=== PATIENT | male | born 1970 | race Caucasian/White ===

== ENCOUNTER 2020-10-19 14:21 | Outpatient (REF) | payer OTHER, SELFPAY ==
[2020-10-19 16:09] LABS: Anion Gap 14 (12-20); Blood Urea Nitrogen 29 mg/dL (9-16); Calcium 8.9 mg/dL (8.4-10.2); Carbon Dioxide 31 mmol/L (22-29); Chloride 99 mmol/L (96-108); Estimated Glomerular Filt Rate 38; Phosphorus 4.5 mg/dL (2.7-4.5); Potassium 3.8 mmol/L (3.3-5.1); Sodium 140 mmol/L (135-145)
== END 2020-10-19 14:22 | disposition home or self-care (01) ==
LOC: HO.LAB 14:21
PROVIDERS: Visit Provider Internal Medicine Hypertension Specialist
DX: I12.9 Hypertensive chronic kidney disease with stage 1 through stage 4 chronic kidney disease, or unspecified chronic kidney disease (principal); N18.9 Chronic kidney disease, unspecified
CPT/HCPCS: 36415; 80051; 82310; 82565; 84100; 84520

== ENCOUNTER 2021-02-23 14:15 | Outpatient (REF) | payer OTHER, SELFPAY ==
[2021-02-23 15:41] LABS: Anion Gap 12 (12-20); Blood Urea Nitrogen 20 mg/dL (9-16); Calcium 8.9 mg/dL (8.4-10.2); Carbon Dioxide 32 mmol/L (22-29); Chloride 100 mmol/L (96-108); Estimated Glomerular Filt Rate 36; Potassium 3.5 mmol/L (3.3-5.1); Sodium 140 mmol/L (135-145)
== END 2021-02-23 14:16 | disposition home or self-care (01) ==
LOC: HO.LAB 14:15
PROVIDERS: Absent Provider Internal Medicine; PCP Internal Medicine; Visit Provider Internal Medicine Hypertension Specialist
DX: N18.32 Chronic kidney disease, stage 3b (principal)
CPT/HCPCS: 36415; 80051; 82310; 82565; 84520

== ENCOUNTER 2021-04-13 11:25 | Outpatient (REF) | payer OTHER, SELFPAY ==
[2021-04-13 11:38] LABS: MANUAL DIFF FLAG NO
[2021-04-13 11:59] LABS: Basophils Percent Auto 0.5 % (0-2); Eosinophils Absolute Auto 0.5 X10*3/uL (0.0-0.4); Eosinophils Percent Auto 6.6 % (0-4); Hematocrit 46.6 % (42-52); Hemoglobin 16.3 g/dl (14.0-18.0); Imm Gran Abs Auto 0.02 X10*3/uL (0.00-0.03); Imm Gran Pct Auto 0.3 % (0.0-0.4); Lymphocytes Absolute Auto 1.2 X10*3/uL (1.2-4.9); Lymphocytes Percent Auto 15.9 % (20-40); Mean Corpuscular Hemoglobin 30.6 pg (27.0-33.0); Mean Corpuscular Volume 87.6 fL (80-98); Mean Platelet Volume 10.1 fL (9.4-12.4); Monocytes Absolute Auto 0.6 X10*3/uL (0.1-1.2); Monocytes Percent Auto 7.9 % (2-11); Neutrophils Absolute Auto 5.1 X10*3/uL (2.0-8.3); Neutrophils Percent Auto 68.8 % (45-73); Platelet Count 208 X10*3/uL (160-400); Red Blood Count 5.32 X10*6/uL (4.60-5.80); Red Cell Distribution Width 12.6 % (11.0-16.0); White Blood Count 7.4 X10*3/uL (4.8-10.8)
[2021-04-13 12:14] LABS: Estimated Average Glucose 105 mg/dL; Hemoglobin A1c % 5.3 %
[2021-04-13 12:29] LABS: B Type Natriuretic Peptide < 10 pg/mL (<100)
[2021-04-13 12:30] LABS: Alanine Aminotransferase 19 U/L (0-40); Albumin Level 4.7 g/dL (3.5-5.0); Alkaline Phosphatase 127 U/L (39-117); Anion Gap 13 (12-20); Aspartate Amino Transferase 20 U/L (5-37); Bilirubin Total 0.9 mg/dL (0.0-1.0); Blood Urea Nitrogen 21 mg/dL (9-16); Calcium 8.9 mg/dL (8.4-10.2); Carbon Dioxide 33 mmol/L (22-29); Chloride 97 mmol/L (96-108); Cholesterol 144 mg/dL; Estimated Glomerular Filt Rate 34; Glucose Random 122 mg/dL (60-115); HDL Cholesterol 25 mg/dL; LDL Cholesterol Calculated 80 mg/dl; Potassium 3.9 mmol/L (3.3-5.1); Sodium 139 mmol/L (135-145); Total Protein 7.2 g/dL (6.5-8.0); Triglycerides 199 mg/dL
[2021-04-13 12:53] LABS: Free T4 (Free Thyroxine) 1.34 ng/dL (0.71-1.85); Prostate Specific Antigen Scr 2.65 ng/mL (<0.05-4.0); Thyroid Stimulating Hormone 1.06 uIU/mL (0.32-4.0)
[2021-04-13 13:07] LABS: Folate 14.6 ng/mL (> or = 4.0); Vitamin B12 181 pg/mL (200-900)
== END 2021-04-13 11:26 | disposition home or self-care (01) ==
LOC: HO.LAB 11:25
PROVIDERS: PCP Internal Medicine; Visit Provider Internal Medicine
DX: Z12.5 Encounter for screening for malignant neoplasm of prostate (principal); E78.00 Pure hypercholesterolemia, unspecified; I50.9 Heart failure, unspecified; N18.30 Chronic kidney disease, stage 3 unspecified
CPT/HCPCS: 36415; 80053; 80061; 82607; 82746; 83036; 83880; 84153; 84439; 84443; 85025

== ENCOUNTER → 2021-05-03 13:52 | Outpatient (REF) | payer OTHER, SELFPAY | LOC: HO.SL 13:52 | PROVIDERS: PCP Internal Medicine; Visit Provider Internal Medicine | DX: G47.10 Hypersomnia, unspecified (principal); I10 Essential (primary) hypertension; I42.8 Other cardiomyopathies; I50.9 Heart failure, unspecified; E66.9 Obesity, unspecified | CPT/HCPCS: 95806 ==

== ENCOUNTER → 2021-06-19 14:41 | Outpatient (BNVA) | payer OTHER, SELFPAY | PROVIDERS: PCP Internal Medicine; Visit Provider Internal Medicine ==

== ENCOUNTER 2021-08-13 15:33 | Outpatient (REF) | payer OTHER, SELFPAY ==
[2021-08-13 15:46] LABS: MANUAL DIFF FLAG NO
[2021-08-13 16:00] LABS: Basophils Percent Auto 0.5 % (0-2); Eosinophils Absolute Auto 0.4 X10*3/uL (0.0-0.4); Eosinophils Percent Auto 4.7 % (0-4); Hemoglobin 15.7 g/dl (14.0-18.0); Imm Gran Abs Auto 0.02 X10*3/uL (0.00-0.03); Imm Gran Pct Auto 0.3 % (0.0-0.4); Lymphocytes Absolute Auto 1.2 X10*3/uL (1.2-4.9); Lymphocytes Percent Auto 15.8 % (20-40); Mean Corpuscular HGB Conc 35.7 g/dl (31.0-36.0); Mean Corpuscular Volume 86.8 fL (80.0-98.0); Monocytes Absolute Auto 0.6 X10*3/uL (0.1-1.2); Monocytes Percent Auto 7.7 % (2-11); Neutrophils Absolute Auto 5.4 x10*3/uL (2.0-8.3); Platelet Count 178 X10*3/uL (160-400); Red Blood Count 5.07 X10*6/uL (4.60-5.80); Red Cell Distribution Width 12.7 % (11.0-16.0); White Blood Count 7.7 X10*3/uL (4.8-10.8)
[2021-08-13 16:16] LABS: Anion Gap 12 (12-20); Blood Urea Nitrogen 18 mg/dL (9-16); Calcium 8.8 mg/dL (8.4-10.2); Carbon Dioxide 30 mmol/L (22-29); Chloride 99 mmol/L (96-108); Estimated Glomerular Filt Rate 47; Potassium 3.3 mmol/L (3.3-5.1); Sodium 138 mmol/L (135-145)
[2021-08-13 17:27] LABS: Creatinine Urine 45.34 mg/dL; Total Protein Urine Random < 7 mg/dL (<12)
== END 2021-08-13 15:34 | disposition home or self-care (01) ==
LOC: HO.LAB 15:33
PROVIDERS: PCP Internal Medicine; Visit Provider Internal Medicine Hypertension Specialist
DX: I12.9 Hypertensive chronic kidney disease with stage 1 through stage 4 chronic kidney disease, or unspecified chronic kidney disease (principal); N18.9 Chronic kidney disease, unspecified
CPT/HCPCS: 36415; 80051; 82310; 82565; 84156; 84520; 85025

== ENCOUNTER → 2021-09-19 15:20 | Outpatient (BNVA) | payer OTHER, SELFPAY | PROVIDERS: PCP Internal Medicine; Visit Provider Internal Medicine | DX: Z13.89 Encounter for screening for other disorder (principal) ==

== ENCOUNTER 2021-09-21 10:59 | Day surgery (SDC) | payer OTHER, SELFPAY ==
[2021-09-17 15:58] VITALS: BMI 36.8
--- NOTE | 2021-09-20 10:35 | HO.ANESPROP2 ---
Documented by User: Rosa Purdy NP 09/20/21 10:45 HPI - Anesthesia Eval Consult details Narrative: 51yo M for Colonoscopy T/C with patient 09/20/21: No SOB/CP, no peripheral edema, sleeping flat without issue. States has not seen commercial subcontractor in a while . Only follows with PCP (Dr Kebede) Per PCP visit 09/18/21, normal exam and cardiac function improved. [facility] Active Problems Active Problems: All Active Problems (Updated 09/19/21 @ 15:58 by Arnold Sanchez MD) Vitamin B12 deficiency (Acute) JOYCELYN (obstructive sleep apnea) (Acute) Impaired fasting blood sugar (Acute) Colon cancer screening (Acute) Chronic kidney disease, stage 3 (Acute) Annual physical exam (Acute) Nonischemic cardiomyopathy (Acute) Hypersomnia (Acute) Obesity (Acute) Hypertension (Acute) Congestive heart failure (Acute) Past Medical History Medical History (Updated 09/19/21 @ 15:58 by Arnold Sanchez MD) Congestive heart failure Hypertension Obesity JOYCELYN (obstructive sleep apnea) Family History Family History Other Drug overdose Surgical History Surgical History History of tonsillectomy Social History Social History Housing: Apartment Alcohol intake: current Patient Tobacco Use Status: Former Tobacco user Tobacco use type: Cigarette Years Smoked: quit 19 years old e-Cigarette/Vaping Use: Never Used Second Hand Smoke Exposure: No Use of substances other than those prescribed or required for medical reasons: No Are you DNR?: No Advance Directives: No Advance Directives Information Provided: Yes Recently lost weight without trying: No Nutrition Risks: No Nutritional Risk service: No Current occupational status: employed Current occupational exposures/hazards: No Cognitive needs: No Hearing needs: No Vision needs: Yes Meds Allergies Allergy/AdvReac Type Severity Reaction Status Date / Time seafood Allergy Angioedema Verified 09/21/21 12:11 Exam Exam Date and Time: September 20, 2021 1035 Height,Weight and Vital Signs: Height 5 ft 3 in Weight 94.347 kg Pertinent Lab Results Pertinent Lab Results: Laboratory Tests 08/13/21 08/13/21 15:40 15:40 WBC 7.7 Hgb 15.7 Hct 44.0 Plt Count 178 Sodium 138 Potassium 3.3 Chloride 99 Carbon Dioxide 30 H BUN 18 H Creatinine 1.57 H Narrative Narrative: ECHO 01/2021 LV size is normal. LV wall thickness is mildly increased. The LV systolic function is normal. LVEF is 60-65%. No definite RWMA LA is mildly dilated. RV size and function appears grossly normal RA size is at upper limit of normal Compared with 09/2020, LV systolic function has improved. Assessment and Plan Assessment Anesthesia Assessment: Chart Reviewed Documented by User: James Avendano MD 09/21/21 12:44 HPI - Anesthesia Eval Consult details Narrative: 51yo M for Colonoscopy T/C with patient 09/20/21: No SOB/CP, no peripheral edema, sleeping flat without issue. States has not seen commercial subcontractor in a while . Only follows with PCP (Dr Kebede) Per PCP visit 09/18/21, normal exam and cardiac function improved. Cardiac cath at [facility] did not show any coronary disease . Improved EF in January 2021 ECHO [facility] Past Medical History Medical History (Updated 09/19/21 @ 15:58 by Arnold Sanchez MD) Congestive heart failure Hypertension Obesity JOYCELYN (obstructive sleep apnea) Functional capacity: independent ambulation Family History Family History Other Drug overdose Family history of problems with anesthesia: No Surgical History Surgical History History of tonsillectomy History of Problems with Anesthesia: No Social History Social History Housing: Apartment Alcohol intake: current Patient Tobacco Use Status: Former Tobacco user Tobacco use type: Cigarette Years Smoked: quit 19 years old e-Cigarette/Vaping Use: Never Used Second Hand Smoke Exposure: No Use of substances other than those prescribed or required for medical reasons: No Are you DNR?: No Advance Directives: No Advance Directives Information Provided: Yes Recently lost weight without trying: No Nutrition Risks: No Nutritional Risk service: No Current occupational status: employed Current occupational exposures/hazards: No Cognitive needs: No Hearing needs: No Vision needs: Yes Meds Allergies Allergy/AdvReac Type Severity Reaction Status Date / Time seafood Allergy Angioedema Verified 09/21/21 12:11 Exam Airway Mallampati Class: IV TM Dist: >3cm Neck ROM: Full Loose/Missing/Broken Teeth: Yes Heart: RRR Lungs: b/l distant breath sounds Assessment and Plan Assessment Anesthesia Assessment: Anesthesia Plan Discussed Final Anesthetic Review Family History of Problems with Anesthesia: No History of Problems with Anesthesia: No NPO: Yes ASA Class: III Final Preanesthetic Review: Meds/Allgs Chart Reviewed, Consent Obtained/Reviewed and Anes Risks/Benef Reviewed Patient Risk: High Procedure Risk: Intermediate Anesthetic Plan Anesthetic Plan: MAC: Disposition: Standard PACU
[2021-09-21 12:01] VITALS: BMI 37.0
[2021-09-21 12:37] VITALS: BP 146/80; PULSE 88; RESP 16; TEMP 37.6; O2SAT 96
[2021-09-21] MEDS: Lactated Ringers 1,000 ML 50 ML IVCONT (12:38)
--- NOTE | 2021-09-21 12:50 | MHC.SHP ---
Pre-Procedural Eval Section A Date of Service: 09/21/21 The patient is an INPATIENT: No Changes since office visit: No Cold of Flu in the past 2 weeks, No New Medical Problems, No Changes in Medication and No Patient answered all questions The History & Physical has been completed within 30 days and I have reviewed it.: Yes Section B Chief Complaint: screening Allergies: Allergies Allergy/AdvReac Type Severity Reaction Status Date / Time seafood Allergy Angioedema Verified 09/21/21 12:11 Plan I have reviewed the history and physical and performed a pertinent physical examination on my patient. No changes have occurred unless specified.
[2021-09-21 13:42] VITALS: BP 113/67; PULSE 84; RESP 16; TEMP 36.1; O2SAT 94
--- NOTE | 2021-09-21 13:44 | PM.OP ---
Brief Operative Note Date of Service: 09/21/21 Pre-op diagnosis: screening Post-op diagnosis: other (colon polyps) Procedure: colonoscopy Surgeon: Yonny Gregorio Anesthesia: MAC Was an Foundation Relations Manager used for this Procedure?: No Estimated blood loss (mL): 2 Pathology: other (polyps x3) Condition: stable Disposition: PACU
[2021-09-21 13:57] VITALS: BP 132/81; PULSE 84; RESP 18; TEMP 36.1; O2SAT 97
--- NOTE | 2021-09-21 14:33 | OP_ITS ---
SURGEON: Yonny Gregorio MD INDICATIONS: Colon cancer screening. PREOPERATIVE DIAGNOSIS: POSTOPERATIVE DIAGNOSIS: PROCEDURE PERFORMED: Colonoscopy to the terminal ileum with biopsy and snare polypectomy. ESTIMATED BLOOD LOSS: COMPLICATIONS: ANESTHESIA: ASSISTANTS: SPECIMENS: MEDICATIONS: Monitored anesthesia care. DESCRIPTION OF PROCEDURE: History and physical were performed. The risks and benefits of the procedure were explained to the patient. Informed consent was obtained. The patient was placed in left lateral decubitus position. A digital rectal exam was performed and was found to be normal. The Olympus pediatric video colonoscope was introduced into the rectum and advanced to the cecum without difficulty. The cecum was identified by transillumination, palpation, and identification of ileocecal valve. Examination was performed. The scope was removed. He tolerated the procedure well and was taken to recovery area in stable condition. FINDINGS: The terminal ileum was examined and appeared normal. There was a large amount of liquid stool coating the mucosa, which limited the sensitivity of examination for detection of small polyps. This was washed and suctioned as best possible. A total of 3 polyps were identified and removed. All were less than 10 mm. Two were removed with a cold snare, at 50 cm and in the rectum and a polyp at 80 cm was removed with biopsy forceps. Retroflexed examination showed internal hemorrhoids. IMPRESSION: Colon polyps. RECOMMENDATION: Follow up the biopsy results. MD CRISTINA Lang/WENDY / [id number] MTDD
== END 2021-09-21 14:19 | disposition home or self-care (01) ==
PROVIDERS: PCP Internal Medicine; Visit Provider Internal Medicine Gastroenterology
PROC: 0DJD8ZZ Inspection of Lower Intestinal Tract, Via Natural or Artificial Opening Endoscopic (ICD-10-PCS; CPT 45378; principal; 2021-09-21 12:50)
DX: Z12.11 Encounter for screening for malignant neoplasm of colon (principal); D12.4 Benign neoplasm of descending colon; D12.5 Benign neoplasm of sigmoid colon; D12.8 Benign neoplasm of rectum; K64.8 Other hemorrhoids; I13.0 Hypertensive heart and chronic kidney disease with heart failure and stage 1 through stage 4 chronic kidney disease, or unspecified chronic kidney disease; N18.30 Chronic kidney disease, stage 3 unspecified; I50.82 Biventricular heart failure; I42.8 Other cardiomyopathies; E66.9 Obesity, unspecified; G47.33 Obstructive sleep apnea (adult) (pediatric); Z79.899 Other long term (current) drug therapy; Z87.891 Personal history of nicotine dependence
CPT/HCPCS: 45385; 45380; 88305; J2370

== ENCOUNTER 2021-12-13 13:18 | Outpatient (REF) | payer OTHER, SELFPAY ==
[2021-12-13 13:33] LABS: MANUAL DIFF FLAG NO
[2021-12-13 13:54] LABS: Basophils Percent Auto 0.5 % (0-2); Eosinophils Absolute Auto 0.3 X10*3/uL (0.0-0.4); Eosinophils Percent Auto 4.6 % (0-4); Hematocrit 44.8 % (42.0-52.0); Hemoglobin 16.2 g/dl (14.0-18.0); Imm Gran Abs Auto 0.02 X10*3/uL (0.00-0.03); Imm Gran Pct Auto 0.3 % (0.0-0.4); Lymphocytes Percent Auto 15.7 % (20-40); Mean Corpuscular HGB Conc 36.2 g/dl (31.0-36.0); Mean Corpuscular Volume 85.8 fL (80.0-98.0); Mean Platelet Volume 10.2 fL (9.4-12.4); Monocytes Absolute Auto 0.5 X10*3/uL (0.1-1.2); Monocytes Percent Auto 8.4 % (2-11); Neutrophils Absolute Auto 4.3 x10*3/uL (2.0-8.3); Neutrophils Percent Auto 70.5 % (45-73); Platelet Count 180 X10*3/uL (160-400); Red Blood Count 5.22 X10*6/uL (4.60-5.80)
[2021-12-13 14:48] LABS: Anion Gap 12 (12-20); Blood Urea Nitrogen 15 mg/dL (9-16); Calcium 8.5 mg/dL (8.4-10.2); Carbon Dioxide 30 mmol/L (22-29); Chloride 99 mmol/L (96-108); Estimated Glomerular Filt Rate 47; Potassium 3.4 mmol/L (3.3-5.1); Sodium 138 mmol/L (135-145)
== END 2021-12-13 13:19 | disposition home or self-care (01) ==
LOC: HO.LAB 13:18
PROVIDERS: PCP Internal Medicine; Visit Provider Internal Medicine Hypertension Specialist
DX: N18.31 Chronic kidney disease, stage 3a (principal)
CPT/HCPCS: 36415; 80051; 82310; 82565; 84520; 85025

== ENCOUNTER 2022-02-25 12:44 | Outpatient (REF) | payer OTHER, SELFPAY ==
[2022-02-25 13:38] LABS: MANUAL DIFF FLAG NO
[2022-02-25 13:46] LABS: Basophils Percent Auto 0.6 % (0-2); Eosinophils Absolute Auto 0.4 X10*3/uL (0.0-0.4); Eosinophils Percent Auto 6.1 % (0-4); Hematocrit 43.9 % (42.0-52.0); Hemoglobin 15.7 g/dl (14.0-18.0); Imm Gran Abs Auto 0.02 X10*3/uL (0.00-0.03); Imm Gran Pct Auto 0.3 % (0.0-0.4); Lymphocytes Absolute Auto 1.1 X10*3/uL (1.2-4.9); Lymphocytes Percent Auto 15.5 % (20-40); Mean Corpuscular HGB Conc 35.8 g/dl (31.0-36.0); Mean Corpuscular Hemoglobin 30.7 pg (27.0-33.0); Mean Corpuscular Volume 85.9 fL (80.0-98.0); Monocytes Absolute Auto 0.6 X10*3/uL (0.1-1.2); Monocytes Percent Auto 8.9 % (2-11); Neutrophils Absolute Auto 4.9 x10*3/uL (2.0-8.3); Neutrophils Percent Auto 68.6 % (45-73); Platelet Count 160 X10*3/uL (160-400); Red Blood Count 5.11 X10*6/uL (4.60-5.80); Red Cell Distribution Width 12.9 % (11.0-16.0); White Blood Count 7.1 X10*3/uL (4.8-10.8)
[2022-02-25 13:58] LABS: Estimated Average Glucose 103 mg/dL; Hemoglobin A1c % 5.2 %
[2022-02-25 14:25] LABS: B Type Natriuretic Peptide < 10 pg/mL (<100)
[2022-02-25 14:27] LABS: Alanine Aminotransferase 17 U/L (0-40); Albumin Level 4.4 g/dL (3.5-5.0); Alkaline Phosphatase 109 U/L (39-117); Anion Gap 13 (12-20); Aspartate Amino Transferase 16 U/L (5-37); Bilirubin Total 0.9 mg/dL (0.0-1.0); Blood Urea Nitrogen 17 mg/dL (9-16); Calcium 8.3 mg/dL (8.4-10.2); Carbon Dioxide 29 mmol/L (22-29); Chloride 101 mmol/L (96-108); Cholesterol 122 mg/dL; Estimated Glomerular Filt Rate 45; Glucose Random 114 mg/dL (60-115); HDL Cholesterol 25 mg/dL; LDL Cholesterol Calculated 58 mg/dl; Potassium 3.7 mmol/L (3.3-5.1); Sodium 139 mmol/L (135-145); Triglycerides 198 mg/dL
[2022-02-25 14:40] LABS: Free T4 (Free Thyroxine) 1.23 ng/dL (0.71-1.85); Prostate Specific Antigen Scr 2.49 ng/mL (<0.05-4.0); Thyroid Stimulating Hormone 1.33 uIU/mL (0.32-4.0)
[2022-02-25 15:12] LABS: Folate 13.3 ng/mL (> or = 4.0); Vitamin B12 311 pg/mL (200-900)
== END 2022-02-25 12:45 | disposition home or self-care (01) ==
LOC: HO.LAB 12:44
PROVIDERS: PCP Internal Medicine; Visit Provider Internal Medicine
DX: Z12.5 Encounter for screening for malignant neoplasm of prostate (principal); E78.00 Pure hypercholesterolemia, unspecified; R73.01 Impaired fasting glucose; I13.0 Hypertensive heart and chronic kidney disease with heart failure and stage 1 through stage 4 chronic kidney disease, or unspecified chronic kidney disease; N18.30 Chronic kidney disease, stage 3 unspecified; I50.9 Heart failure, unspecified
CPT/HCPCS: 36415; 80053; 80061; 82607; 82746; 83036; 83880; 84153; 84439; 84443; 85025

== ENCOUNTER → 2022-04-03 13:21 | Outpatient (REF) | payer OTHER, SELFPAY ==
--- NOTE | 2022-04-03 13:24 | CA_ITS ---
Transthoracic Echocardiogram Patient (Last, First, Middle): Antoni Reina L Gender: Male Date of : 1970 Age: 52 Procedure Date: 04/03/2022 Procedure Type: Transthoracic Echocardiogram Location: OP Height: 160.02 cm Weight: 94.35 kg BSA: 1.97 m2 Heart Rate: bpm BP: 124 / 80 mmHg Welding Manager: Referring MD: Heather Kebede MD Symptoms: I42.8 - Other cardiomyopathies Study Quality: Good ECG Rhythm: Sinus Conclusions: - The left ventricular systolic function is normal. The visually estimated ejection fraction is between 65-70%. - No obvious valvular pathology seen on this study. Findings Left Ventricle Normal left ventricular cavity size. There is mildly increased left ventricular wall thickness. The left ventricular systolic function is normal. The visually estimated ejection fraction is between 65-70%. There is no evidence of regional wall motion abnormalities. Diastolic function is normal for age. LV peak GLS -18%. Right Ventricle Normal right ventricular cavity size and systolic function. Atria Both atria are normal in size. Aortic Valve There is a normal trileaflet aortic valve. There is no aortic valve stenosis. There is no aortic valve regurgitation. Mitral Valve The mitral valve appears normal. There is no mitral valve regurgitation. There is no mitral valve stenosis. Pulmonic Valve The pulmonic valve is likely normal. Tricuspid Valve Normal tricuspid valve structure. There is trace tricuspid valve regurgitation. There is no evidence of pulmonary hypertension. Great Vessels The aortic annulus, sinuses of valsalva, and asc aorta are normal in size. Venous The inferior vena cava is normal in size and collapses greater than 50% with inspiration. Pericardium/Pleural There is no evidence of pericardial effusion. Prior Study Comparison No prior study available for comparison. Recommendations, Care & Conclusions No obvious valvular pathology seen on this study. Measurements 2D Linear Measurements IVSd: 1.25 0.6-0.9/0.6-1.0 cm LVIDd: 4.63 3.9-5.3/4.2-5.9 cm LVIDd Index: 2.35 2.4-3.2/2.2-3.1 cm/m2 LVIDs: 2.72 2.0-3.6 cm LVPWd: 1.25 0.7-1.1 cm Ao Root: 3.00 2.1-3.5 cm LA Diam: 3.30 2.7-3.8/3.0-4.0 cm LAIDs Index: 1.68 1.5-2.3 cm/m2 LV Mass: 273.74 67-162/88-224 g LV Mass Index: 138.96 43-95/49-115 g/m2 LVOT Diam: 2.20 3.0+(-)1.3 cm 2D Systolic Function EF 4C: 60.20 >55% EF 2C: 59.60 >55% EF BiP: 59.50 >55% Mitral Valve MV Pk E: 0.95 MV PK A: 1.02 MV Decel Time: 206.00 E/A: 0.90 E'Lateral: 6.74 E'Medial: 6.20 E/E' Med: 15.30 E/E' Lat: 14.10 PHT: 60.00 MVA PHT: 3.67 Decel [place]: 4.62 Aortic Valve AoV Pk Reynaldo: 1.57 AoV Mn Reynaldo: 1.02 AoV VTI: 0.32 AoV Pk Grad: 10.00 Aov Mn Grad: 5.00 ADAMS Cont.VTI: 2.85 LVOT LVOT Pk Reynaldo: 1.01 LVOT Mn Reynaldo: 0.66 LVOT VTI: 0.24 LVOT Pk Grad: 4.00 LVOT Mn Grad: 2.00 LVOT Diam: 2.20 LVOT Area: 3.80 Diastolic Function MV Pk E: 0.95 MV Pk A: 1.02 E/A: 0.90 E'Medial: 6.20 E/E' Med: 15.30 E' Laterial: 6.74 E/E' Lat: 14.10 Right Ventricle TAPSE (mm): 35.00 TVS' Reynaldo: 15.00 Tricuspid Valve TR Pk Reynaldo: 2.18 TR Pk Grad: 19.00 RA Press: 3.00 RVSP: 22.00 Great Vessels Aorta Ao Root-2D: 3.00 2.0-3.7 cm Ao Asc: 3.40 2.1-3.4 cm Pulmonary Valve PV Pk Reynaldo: 1.08 Peak PV Grad: 5.00 Updated in Other Vendor System with Status of Final Hema Castillo MD electronically signed on 04/03/2022 4:10:48 PM with status of Final
== END ==
LOC: HO.CARD 13:21
PROVIDERS: PCP Internal Medicine; Visit Provider Internal Medicine
DX: I42.8 Other cardiomyopathies (principal)
CPT/HCPCS: 93306; 93356

== ENCOUNTER 2022-07-18 12:22 | Outpatient (REF) | payer OTHER, SELFPAY ==
[2022-07-18 13:55] LABS: Anion Gap 10 (12-20); Blood Urea Nitrogen 17 mg/dL (9-16); Calcium 8.6 mg/dL (8.4-10.2); Carbon Dioxide 29 mmol/L (22-29); Chloride 104 mmol/L (96-108); Estimated Glomerular Filt Rate 47; Glucose Random 137 mg/dL (60-115); Potassium 4.1 mmol/L (3.3-5.1); Sodium 139 mmol/L (135-145)
== END 2022-07-18 12:23 | disposition home or self-care (01) ==
LOC: HO.LAB 12:22
PROVIDERS: PCP Internal Medicine; Visit Provider Internal Medicine Hypertension Specialist
DX: N18.31 Chronic kidney disease, stage 3a (principal)
CPT/HCPCS: 36415; 80048

== ENCOUNTER 2022-12-03 13:28 | Outpatient (REF) | payer OTHER, SELFPAY ==
[2022-12-03 15:35] LABS: Anion Gap 14 (12-20); Blood Urea Nitrogen 21 mg/dL (9-16); Calcium 8.4 mg/dL (8.4-10.2); Carbon Dioxide 26 mmol/L (22-29); Chloride 104 mmol/L (96-108); Estimated Glomerular Filt Rate 56; Glucose Random 94 mg/dL (60-115); Potassium 3.5 mmol/L (3.3-5.1); Sodium 140 mmol/L (135-145)
[2022-12-03 16:04] LABS: Creatinine Urine 39.43 mg/dL; Total Protein Urine Random < 7 mg/dL (<12)
== END 2022-12-03 13:29 | disposition home or self-care (01) ==
LOC: HO.LAB 13:28
PROVIDERS: PCP Internal Medicine; Visit Provider Internal Medicine Hypertension Specialist
DX: N18.31 Chronic kidney disease, stage 3a (principal); R82.90 Unspecified abnormal findings in urine
CPT/HCPCS: 36415; 80048; 84156; 87086

== ENCOUNTER 2023-02-28 14:18 | Outpatient (REF) | payer OTHER, SELFPAY ==
[2023-02-28 14:39] LABS: MANUAL DIFF FLAG NO
[2023-02-28 15:31] LABS: Basophils Percent Auto 0.5 % (0-2); Eosinophils Absolute Auto 0.3 X10*3/uL (0.0-0.4); Eosinophils Percent Auto 5.3 % (0-4); Hematocrit 46.6 % (42.0-52.0); Hemoglobin 16.8 g/dl (14.0-18.0); Imm Gran Abs Auto 0.02 X10*3/uL (0.00-0.03); Imm Gran Pct Auto 0.3 % (0.0-0.4); Lymphocytes Percent Auto 15.1 % (20-40); Mean Corpuscular HGB Conc 36.1 g/dl (31.0-36.0); Mean Corpuscular Hemoglobin 31.5 pg (27.0-33.0); Mean Corpuscular Volume 87.4 fL (80.0-98.0); Monocytes Absolute Auto 0.5 X10*3/uL (0.1-1.2); Monocytes Percent Auto 8.3 % (2-11); Neutrophils Absolute Auto 4.5 x10*3/uL (2.0-8.3); Neutrophils Percent Auto 70.5 % (45-73); Platelet Count 179 X10*3/uL (160-400); Red Blood Count 5.33 X10*6/uL (4.60-5.80); Red Cell Distribution Width 12.9 % (11.0-16.0); White Blood Count 6.4 X10*3/uL (4.8-10.8)
[2023-02-28 15:52] LABS: B Type Natriuretic Peptide < 10 pg/mL (<100)
[2023-02-28 15:53] LABS: Estimated Average Glucose 108 mg/dL; Hemoglobin A1c % 5.4 % (<6.0)
[2023-02-28 16:45] LABS: Alanine Aminotransferase 16 U/L (0-40); Albumin Level 4.5 g/dL (3.5-5.0); Alkaline Phosphatase 127 U/L (39-117); Anion Gap 12 (12-20); Aspartate Amino Transferase 19 U/L (5-37); Bilirubin Total 0.8 mg/dL (0.0-1.0); Blood Urea Nitrogen 19 mg/dL (9-16); Calcium 8.9 mg/dL (8.4-10.2); Carbon Dioxide 32 mmol/L (22-29); Chloride 100 mmol/L (96-108); Cholesterol 135 mg/dL (<200); Estimated Glomerular Filt Rate 44; Glucose Random 138 mg/dL (60-115); HDL Cholesterol 30 mg/dL (>40); LDL Cholesterol Calculated 77 mg/dL (<100); Potassium 3.8 mmol/L (3.3-5.1); Sodium 140 mmol/L (135-145); Total Protein 7.2 g/dL (6.5-8.0); Triglycerides 144 mg/dL (<150)
[2023-02-28 16:47] LABS: Thyroid Stimulating Hormone 1.04 uIU/mL (0.32-4.0)
[2023-02-28 17:00] LABS: Folate 10.4 ng/mL (> or = 4.0); Prostate Specific Antigen Scr 4.41 ng/mL (<0.05-4.0); Vitamin B12 307 pg/mL (200-900)
== END 2023-02-28 14:19 | disposition home or self-care (01) ==
LOC: HO.LAB 14:18
PROVIDERS: PCP Internal Medicine; Visit Provider Internal Medicine
DX: Z12.5 Encounter for screening for malignant neoplasm of prostate (principal); I13.0 Hypertensive heart and chronic kidney disease with heart failure and stage 1 through stage 4 chronic kidney disease, or unspecified chronic kidney disease; N18.30 Chronic kidney disease, stage 3 unspecified; I50.9 Heart failure, unspecified; E78.00 Pure hypercholesterolemia, unspecified; R73.01 Impaired fasting glucose
CPT/HCPCS: 36415; 80053; 80061; 82607; 82746; 83036; 83880; 84153; 84439; 84443; 85025

== ENCOUNTER 2023-03-04 14:19 | Outpatient (REF) | payer OTHER, SELFPAY ==
[2023-03-06 10:22] LABS: Free Prostate Spec Ag 0.5 ng/mL; Percent Free Prostate Spec Ag 12 % (calc) (>25); Prostate Specific Ag Total 4.1 ng/mL (< OR = 4.0)
== END 2023-03-04 14:20 | disposition home or self-care (01) ==
LOC: HO.LAB 14:19
PROVIDERS: PCP Internal Medicine; Visit Provider Internal Medicine
DX: Z12.5 Encounter for screening for malignant neoplasm of prostate (principal); R97.20 Elevated prostate specific antigen [PSA]
CPT/HCPCS: 36415; 84153; 84154

== ENCOUNTER 2023-03-07 12:23 | Outpatient (AMB) | payer OTHER, SELFPAY ==
[2023-03-07 12:39] VITALS: BP 140/82; PULSE 84; O2SAT 98; BMI 39.5
--- NOTE | 2023-03-07 12:39 | A.OFFPC_ITS ---
Vital Signs 03/07/23 12:39 03/07/23 12:54 Height 5 ft 3 in Weight 223 lb BMI 39.5 BP 140/82 H 150/80 H Blood Pressure Location Lt brachial Lt brachial Position Sitting Sitting Pulse 84 Pulse Source Pulse Oximeter Pulse Oximetry (%) 98 Oxygen Delivery Method Room Air Intake Visit Reasons: PE Allergies seafood Allergy (Verified 03/07/23 12:39) Angioedema Medication List - Last Reconciled 03/07/23 by Heather Kebede MD amlodipine 10 mg PO DAILY 90 days carvedilol 25 mg PO BID 90 days cyanocobalamin (vitamin B-12) 1,000 mcg PO DAILY hydralazine 100 mg PO TID 90 days isosorbide mononitrate ER 90 mg (1.5 x 60 mg) PO DAILY 90 days torsemide 40 mg (2 x 20 mg) PO DAILY 90 days triamcinolone acetonide 0.5% 1 appl topical BID Tobacco use date assessed: 08/30/22 Dental Screening Dental Screen Date: 03/07/23 Did you have a dental visit in the last 12 months?: No Did you have a dental problem in the last 6 months where you did not have access to dental care?: No Was dental information given to patient?: No HPI PE HPI Details 52-year-old obese male with a history of congestive heart failure chronic kidney disease impaired glucose tolerance obstructive sleep apnea hypertension coming in for physical exam. Last seen in November 2022. Patient is up-to-date with colonoscopy September 2021. tired and working 2 jabs - tired [facility] Medical History (Updated 02/28/23 @ 17:26 by Heather Kebede MD) JOYCELYN (obstructive sleep apnea) Obesity Hypertension Congestive heart failure Surgical History History of tonsillectomy Family History (Updated 03/07/23 @ 12:56 by Heather Kebede MD) Maternal Grandfather Lung cancer Paternal Grandfather Lung cancer Paternal Uncle Lung cancer Other Drug overdose Social History (Updated 03/07/23 @ 12:57 by Heather Kebede MD) Housing: Apartment Alcohol intake: current Patient Tobacco Use Status: Former Tobacco user Tobacco use type: Cigarette Years Smoked: quit 19 years old cigar smoking 01/2023 e-Cigarette/Vaping Use: Never Used Second Hand Smoke Exposure: No service: No Current occupational status: employed Current occupational exposures/hazards: No Cognitive needs: No Hearing needs: No Vision needs: Yes Questionnaire PHQ-9 Over the last 2 weeks, how often have you been bothered by any of the following problems? 1. Little interest or pleasure in doing things: not at all 2. Feeling down, depressed, or hopeless: not at all 3. Trouble falling or staying asleep, or sleeping too much: not at all 4. Feeling tired or having little energy: not at all 5. Poor appetite or overeating: not at all 6. Feeling bad about yourself - or that you are a failure or have let yourself or your family down: not at all 7. Trouble concentrating on things, such as reading the newspaper or watching television: not at all 8. Moving or speaking so slowly that other people could have noticed. Or the opposite - being so fidgety or restless that you have been moving around a lot more than usual: not at all 9. Thoughts that you would be better off or of hurting yourself in some way: not at all Total score: 0 Depression Screening Interpretation: Negative Source: Developed by Drs. Marvin Zayas, Sophy Coats, Duane Cross and colleagues, with an educational christopher from [employer] Thrive Questionnaire Date Thrive assessed: 08/30/22 AUDIT C Alcohol Use Questionnaire (AUDIT-C) 1. How often do you have a drink containing alcohol?: Never 3. How often do you have six or more drinks on one occasion?: Never Total Score: 0 SHON-7 AMB Questionnaire SHON-7 Date SHON - 7 assessed: 08/30/22 Source: Developed by Drs. Marvin Zayas, Sophy Coats, Duane Cross and colleagues, with an educational christopher from [employer] Review of Systems Const Denies poor appetite and Denies weakness Eyes Denies no additional complaints ENT Reports Normal hearing present, Denies dizziness, Denies nasal congestion, Denies tinnitus and Denies sore throat Card Denies chest pain, Denies syncope, Denies rapid heart rate and Denies dyspnea Resp Denies cough and Denies dyspnea GI Denies change in stool character, Reports constipation, Denies diarrhea, Denies nausea and Denies vomiting Denies dysuria and Denies urinary frequency Neuro Reports Normal hearing present, Denies confusion, Denies dizziness, Denies syncope and Denies weakness Psych Denies confusion Physical exam (Primary Care) Vital Signs: Last Vital Signs Pulse 84 03/07/23 12:39 BP 140/82 H 03/07/23 12:39 Pulse Ox 98 03/07/23 12:39 Oxygen Delivery Method Room Air 03/07/23 12:39 BMI result Body Mass Index 39.5 Tobacco/Smoking Status: Tobacco use Status Tobacco use date assessed 08/30/22 03/07/23 12:40 Patient Tobacco Use Status Former Tobacco user 03/07/23 12:40 Tobacco use type Cigarette 03/07/23 12:40 e-Cigarette/Vaping Use Never Used 03/07/23 12:40 PHQ-9: PHQ-9 Score PHQ-9: Total score 0 03/07/23 12:40 Depression Screening Interpretation: Negative Thrive Assessment: Date of Thrive Assessment Date Thrive assessed 08/30/22 03/07/23 12:40 Const General: alert and awake; No confusion Orientation/consciousness: No confusion HENMT Head: Yes normocephalic Ears: external ears normal and TM's normal bilaterally Face and sinus: Yes normal facial exam Mouth: moist mucous membranes Throat: Yes tonsils normal Eyes Conjunctivae: conjunctivae normal Pupils: Equal, round and reactive pupils present and Pupil accommodation reflex normal Direct Ophthalmoscopy: normal light reflex Neck Neck: No lymphadenopathy Thyroid: Thyroid normal Chest Chest palpation & inspection: normal inspection of the chest Resp Effort & Inspection: normal respiratory effort and no audible wheezes Auscultation: clear to auscultation bilaterally, no crackles, no wheezes and lung sounds not diminished Cardio Rate: regular rate Rhythm: regular rhythm Peripheral pulses: radial pulses present and dorsalis pedis present GI Other: guaiac negative prostrate negative Palpation (GI): no masses Auscultation: normal bowel sounds and normoactive bowel sounds Male General Exam: Yes normal external exam Skin General skin exam: no rashes or lesions noted Rashes: no rashes Neuro General: deep tendon reflexes 2+ bilaterally and No confusion Cranial nerves: Yes Equal, round and reactive pupils present, Yes Midline tongue present, Yes Normal hearing present and Yes Ability to bilaterally elevate shoulders present Cognition (Neuro): normal cognition Gait exam (Neuro): Normal gait present Motor exam (neuro): 5/5 motor strength present throughout Deep tendon reflexes (DTR's): Right brachioradialis reflex intensity grade: 2+, Left brachioradialis reflex intensity grade: 2+, Right patellar reflex intensity grade: 2+ and Left patellar reflex intensity grade: 2+ Extrem General: No edema Assessment and Plan Assessment & Plan (1) Annual physical exam: Code(s): Z00.00 - Encounter for general adult medical examination without abnormal findings (2) Nonischemic cardiomyopathy: Code(s): I42.8 - Other cardiomyopathies Plan: Continue with medications carvedilol, amlodipine hydralazine isosorbide mononitrate, torsemide (3) Obesity: Comment: PATIENT IS GROSSLY OBESE. HE IS VERY MOTIVATED TO LOSE WEIGHT. Code(s): E66.9 - Obesity, unspecified Plan: Diet and exercise. discussed with the patient the concern on weight , the need to loose weight (4) Hypertension: Code(s): I10 - Essential (primary) hypertension Plan: Continue with blood pressure medication. Decrease salt intake and exercise continue with isosorbide mononitrate hydralazine carvedilol and amlodipine (5) Congestive heart failure: Comment: September 2020 biventricular Patient has diagnosis of nonischemic cardiomyopathy. He is being treated for congestive heart failure., Being followed by cardiology service. Code(s): I50.9 - Heart failure, unspecified Plan: Weigh daily and record avoid salt loading. (6) Chronic kidney disease, stage 3: Code(s): N18.30 - Chronic kidney disease, stage 3 unspecified Plan: Keep well hydrated avoid NSAIDs (7) PSA elevation: Code(s): R97.20 - Elevated prostate specific antigen [PSA] Plan: Will continue to follow-up Orders: Orders CA echo transthoracic complete Today I42.8 - Other cardiomyopathies Complete Blood Count Auto Diff 3 Months I50.9 - Heart failure, unspecified Comprehensive Met. Panel 3 Months I50.9 - Heart failure, unspecified PSA,Total (Free>4and<10) 3 Months R97.20 - Elevated prostate specific antigen [PSA] Medications: Refilled amlodipine 10 mg PO DAILY 90 tabs 2RF 90 days I10 - Essential (primary) hypertension carvedilol 25 mg PO BID 180 tabs 2RF 90 days I10 - Essential (primary) hype rtension hydralazine 100 mg PO TID 270 tabs 1RF 90 days I10 - Essential (primary) hypertension isosorbide mononitrate ER 90 mg (1.5 x 60 mg) PO DAILY 135 tabs 2RF 90 days I50.9 - Heart failure, unspecified torsemide 40 mg (2 x 20 mg) PO DAILY 180 tabs 2RF 90 days I50.9 - Heart failure, unspecified Coding Level of Care Code Est Pt Prev Care 40-64y(47013) Diagnoses Annual physical exam Z00.00 Nonischemic cardiomyopathy I42.8 Obesity E66.9 Hypertension I10 Congestive heart failure I50.9 Chronic kidney disease, stage 3 N18.30 PSA elevation R97.20
[2023-03-07 12:54] VITALS: BP 150/80
== END 2023-03-07 13:15 | disposition home or self-care (01) ==
PROVIDERS: Visit Provider Internal Medicine
DX: Z00.00 Encounter for general adult medical examination without abnormal findings (principal); I13.0 Hypertensive heart and chronic kidney disease with heart failure and stage 1 through stage 4 chronic kidney disease, or unspecified chronic kidney disease; N18.30 Chronic kidney disease, stage 3 unspecified; I50.9 Heart failure, unspecified; I42.8 Other cardiomyopathies; Z68.39 Body mass index [BMI] 39.0-39.9, adult; E66.9 Obesity, unspecified; R97.20 Elevated prostate specific antigen [PSA]
CPT/HCPCS: 99396

== ENCOUNTER → 2023-05-01 13:47 | Outpatient (REF) | payer OTHER, SELFPAY ==
--- NOTE | 2023-05-01 13:49 | CA_ITS ---
Transthoracic Echocardiogram Patient (Last, First, Middle): Antoni Reina L Gender: Male Date of : 1970 Age: 53 Procedure Date: 05/01/2023 Procedure Type: Transthoracic Echocardiogram Location: OP Height: 160. cm Weight: 99.79 kg BSA: 2.01 m2 Heart Rate: 75 bpm BP: 160 / 80 mmHg Logistics Assistant: CROW Referring MD: Heather Kebede MD Symptoms: I42.8 - Other cardiomyopathies Study Quality: Fair ECG Rhythm: Sinus Conclusions: - The left ventricular systolic function is normal. The visually estimated ejection fraction is between 65-70%. - No obvious valvular pathology seen on this study. Findings Left Ventricle Normal left ventricular cavity size. There is mildly increased left ventricular wall thickness. The left ventricular systolic function is normal. The visually estimated ejection fraction is between 65-70%. There is no evidence of regional wall motion abnormalities. Diastolic function is normal for age. LV peak GLS -19% (normal). Right Ventricle Normal right ventricular cavity size and systolic function. Atria Both atria are normal in size. Aortic Valve There is a normal trileaflet aortic valve. There is no aortic valve stenosis. There is no aortic valve regurgitation. Mitral Valve The mitral valve appears normal. There is no mitral valve regurgitation. There is no mitral valve stenosis. Pulmonic Valve The pulmonic valve is likely normal. Tricuspid Valve Normal tricuspid valve structure. There is trace tricuspid valve regurgitation. There is no evidence of pulmonary hypertension. Great Vessels The asc aorta is normal in size. Venous The inferior vena cava is normal in size and collapses less than 50% with inspiration. Pericardium/Pleural There is no evidence of pericardial effusion. Prior Study Comparison No significant change compared to prior study dated: 04/03/2022. Recommendations, Care & Conclusions No obvious valvular pathology seen on this study. Measurements 2D Linear Measurements IVSd: 1.21 0.6-0.9/0.6-1.0 cm LVIDd: 4.48 3.9-5.3/4.2-5.9 cm LVIDd Index: 2.23 2.4-3.2/2.2-3.1 cm/m2 LVIDs: 2.11 2.0-3.6 cm LVPWd: 1.33 0.7-1.1 cm LA Diam: 3.60 2.7-3.8/3.0-4.0 cm LAIDs Index: 1.79 1.5-2.3 cm/m2 LV Mass: 266.27 67-162/88-224 g LV Mass Index: 132.47 43-95/49-115 g/m2 LVOT Diam: 2.20 3.0+(-)1.3 cm 2D Systolic Function EF 4C: 66.60 >55% EF 2C: 74.30 >55% EF BiP: 71.60 >55% Mitral Valve MV Pk E: 1.18 MV PK A: 1.16 MV Decel Time: 252.00 E/A: 1.00 E'Lateral: 6.85 E'Medial: 6.85 E/E' Med: 17.20 E/E' Lat: 17.20 PHT: 74.00 MVA PHT: 2.97 Decel [place]: 4.68 Aortic Valve AoV Pk Reynaldo: 1.74 AoV Mn Reynaldo: 1.27 AoV VTI: 0.35 AoV Pk Grad: 12.00 Aov Mn Grad: 7.00 ADAMS Cont.VTI: 2.62 LVOT LVOT Pk Reynaldo: 1.24 LVOT Mn Reynaldo: 0.84 LVOT VTI: 0.24 LVOT Pk Grad: 6.00 LVOT Mn Grad: 3.00 LVOT Diam: 2.20 LVOT Area: 3.80 Diastolic Function MV Pk E: 1.18 MV Pk A: 1.16 E/A: 1.00 E'Medial: 6.85 E/E' Med: 17.20 E' Laterial: 6.85 E/E' Lat: 17.20 Right Ventricle TAPSE (mm): 32.50 TVS' Reynaldo: 16.80 Tricuspid Valve TR Pk Reynaldo: 1.70 TR Pk Grad: 12.00 RA Press: 8.00 RVSP: 20.00 Great Vessels Aorta Sinus of Valsalva: 3.90 2.0-3.5 cm Ao Asc: 3.70 2.1-3.4 cm Pulmonary Valve PV Pk Reynaldo: 1.13 Peak PV Grad: 5.00 Updated in Other Vendor System with Status of Final Hema Castillo MD electronically signed on 05/03/2023 11:03:46 AM with status of Final
== END ==
LOC: HO.CARD 13:47
PROVIDERS: PCP Internal Medicine; Visit Provider Internal Medicine
DX: I42.8 Other cardiomyopathies (principal)
CPT/HCPCS: 93306; 93356

== ENCOUNTER → 2023-05-01 13:49 | Outpatient (BNV) | payer OTHER, SELFPAY | PROVIDERS: PCP Internal Medicine; Visit Provider Internal Medicine | DX: I42.8 Other cardiomyopathies (principal) | CPT/HCPCS: 93306 ==

== ENCOUNTER 2023-06-12 13:19 | Outpatient (REF) | payer OTHER, SELFPAY ==
[2023-06-12 13:30] LABS: MANUAL DIFF FLAG NO
[2023-06-12 14:02] LABS: Basophils Percent Auto 0.6 % (0-2); Eosinophils Absolute Auto 0.5 X10*3/uL (0.0-0.4); Eosinophils Percent Auto 7.6 % (0-4); Hematocrit 44.2 % (42.0-52.0); Hemoglobin 15.3 g/dl (14.0-18.0); Imm Gran Abs Auto 0.01 X10*3/uL (0.00-0.03); Imm Gran Pct Auto 0.2 % (0.0-0.4); Lymphocytes Absolute Auto 0.9 X10*3/uL (1.2-4.9); Lymphocytes Percent Auto 14.6 % (20-40); Mean Corpuscular HGB Conc 34.6 g/dl (31.0-36.0); Mean Corpuscular Hemoglobin 30.5 pg (27.0-33.0); Mean Corpuscular Volume 88.2 fL (80.0-98.0); Mean Platelet Volume 9.9 fL (9.4-12.4); Monocytes Absolute Auto 0.6 X10*3/uL (0.1-1.2); Monocytes Percent Auto 9.3 % (2-11); Neutrophils Absolute Auto 4.3 x10*3/uL (2.0-8.3); Neutrophils Percent Auto 67.7 % (45-73); Platelet Count 165 X10*3/uL (160-400); Red Blood Count 5.01 X10*6/uL (4.60-5.80); Red Cell Distribution Width 13.3 % (11.0-16.0); White Blood Count 6.4 X10*3/uL (4.8-10.8)
[2023-06-12 14:22] LABS: B Type Natriuretic Peptide < 10 pg/mL (<100)
[2023-06-12 14:43] LABS: Alanine Aminotransferase 15 U/L (0-40); Albumin Level 4.5 g/dL (3.5-5.0); Alkaline Phosphatase 110 U/L (39-117); Anion Gap 13 (12-20); Aspartate Amino Transferase 18 U/L (5-37); Bilirubin Total 0.5 mg/dL (0.0-1.0); Blood Urea Nitrogen 17 mg/dL (9-16); Calcium 8.7 mg/dL (8.4-10.2); Carbon Dioxide 30 mmol/L (22-29); Chloride 101 mmol/L (96-108); Estimated Glomerular Filt Rate 56; Glucose Random 100 mg/dL (60-115); Potassium 3.9 mmol/L (3.3-5.1); Sodium 140 mmol/L (135-145); Total Protein 7.2 g/dL (6.5-8.0)
[2023-06-12 15:05] LABS: PSA,Total (Free>4and<10) 3.71 ng/mL (0.00-4.00)
== END 2023-06-12 13:20 | disposition home or self-care (01) ==
LOC: HO.LAB 13:19
PROVIDERS: PCP Internal Medicine; Visit Provider Internal Medicine
DX: Z12.5 Encounter for screening for malignant neoplasm of prostate (principal); I11.0 Hypertensive heart disease with heart failure; I50.9 Heart failure, unspecified; R97.20 Elevated prostate specific antigen [PSA]
CPT/HCPCS: 36415; 80053; 83880; 84153; 85025

== ENCOUNTER 2023-06-23 13:04 | Outpatient (AMB) | payer OTHER, SELFPAY ==
[2023-06-23 13:20] VITALS: BP 140/78; PULSE 73; O2SAT 96; BMI 38.6
--- NOTE | 2023-06-23 13:20 | MHC.PC.OV ---
Vital Signs 06/23/23 13:20 Height 5 ft 3 in Weight 218 lb BMI 38.6 BP 140/78 H Blood Pressure Location Lt brachial Position Sitting Pulse 73 Pulse Source Pulse Oximeter Pulse Oximetry (%) 96 Oxygen Delivery Method Room Air Intake Visit Reasons: 3 Months F/U-PSA, CKD, HTN, obesity School Age Teacher Required: No Allergies seafood Allergy (Verified 06/23/23 13:21) Angioedema Medication List - Last Reconciled 06/23/23 by Heather Kebede MD amlodipine 10 mg PO DAILY 90 days carvedilol 25 mg PO BID 90 days cyanocobalamin (vitamin B-12) 1,000 mcg PO DAILY hydralazine 100 mg PO TID 90 days isosorbide mononitrate ER 90 mg (1.5 x 60 mg) PO DAILY 90 days torsemide 40 mg (2 x 20 mg) PO DAILY 90 days triamcinolone acetonide 0.5% 1 appl topical BID Tobacco use date assessed: 06/23/23 Dental Screening Dental Screen Date: 06/23/23 Did you have a dental visit in the last 12 months?: No Did you have a dental problem in the last 6 months where you did not have access to dental care?: No HPI 3 Months F/U-PSA, CKD, HTN, obesity HPI Details 53-year-old obese male with nonischemic cardiomyopathy hypertension congestive heart failure chronic kidney disease. Patient had physical exam at in February 2023 echocardiogram ejection fraction 65-70% no obvious valvular pathology. [facility] Medical History (Updated 06/23/23 @ 14:18 by Heather Kebede MD) JOYCELYN (obstructive sleep apnea) Obesity Hypertension Congestive heart failure Surgical History History of tonsillectomy Family History (Updated 03/07/23 @ 12:56 by Heather Kebede MD) Maternal Grandfather Lung cancer Paternal Grandfather Lung cancer Paternal Uncle Lung cancer Other Drug overdose Social History (Updated 03/07/23 @ 12:57 by Heather Kebede MD) Housing: Apartment Alcohol intake: current Patient Tobacco Use Status: Former Tobacco user Tobacco use type: Cigarette Years Smoked: quit 20 years old cigar smoking 01/2023 e-Cigarette/Vaping Use: Never Used Second Hand Smoke Exposure: No service: No Current occupational status: employed Current occupational exposures/hazards: No Cognitive needs: No Hearing needs: No Vision needs: Yes Questionnaire PHQ-9 Over the last 2 weeks, how often have you been bothered by any of the following problems? 1. Little interest or pleasure in doing things: not at all 2. Feeling down, depressed, or hopeless: not at all 3. Trouble falling or staying asleep, or sleeping too much: not at all 4. Feeling tired or having little energy: not at all 5. Poor appetite or overeating: not at all 6. Feeling bad about yourself - or that you are a failure or have let yourself or your family down: not at all 7. Trouble concentrating on things, such as reading the newspaper or watching television: not at all 8. Moving or speaking so slowly that other people could have noticed. Or the opposite - being so fidgety or restless that you have been moving around a lot more than usual: not at all 9. Thoughts that you would be better off or of hurting yourself in some way: not at all Total score: 0 Depression Screening Interpretation: Negative Depression Screening Done: Yes Source: Developed by Drs. Marvin Zayas, Sophy Coats, Duane Cross and colleagues, with an educational christopher from [employer]. Thrive Questionnaire Date Thrive assessed: 08/30/22 AUDIT C Alcohol Use Questionnaire (AUDIT-C) 1. How often do you have a drink containing alcohol?: Never 3. How often do you have six or more drinks on one occasion?: Never Total Score: 0 SHON-7 AMB Questionnaire SHON-7 Date SHON - 7 assessed: 06/23/23 Source: Developed by Drs. Marvin Zayas, Duane Nicholson and colleagues, with an educational christopher from [employer]. Physical exam (Primary Care) Vital Signs: Last Vital Signs Pulse 73 06/23/23 13:20 BP 140/78 H 06/23/23 13:20 Pulse Ox 96 06/23/23 13:20 Oxygen Delivery Method Room Air 06/23/23 13:20 BMI result Body Mass Index 38.6 Tobacco/Smoking Status: Tobacco use Status Tobacco use date assessed 06/23/23 06/23/23 13:22 Patient Tobacco Use Status Former Tobacco user 06/23/23 13:22 Tobacco use type Cigarette 06/23/23 13:22 e-Cigarette/Vaping Use Never Used 06/23/23 13:22 PHQ-9: PHQ-9 Score PHQ-9: Total score 0 06/23/23 13:29 Depression Screening Interpretation: Negative Thrive Assessment: Date of Thrive Assessment Date Thrive assessed 08/30/22 06/23/23 13:22 Const General: alert; No acute distress Eyes Conjunctivae: conjunctivae normal Resp Auscultation: clear to auscultation bilaterally Cardio Rate: regular rate Rhythm: regular rhythm GI Inspection: Yes normal to inspection Extrem General: Yes normal to inspection and No edema Office Procedures Flu Questionnaire Does the patient have a severe egg allergy?: No Does the patient have severe life threatening allergies?: No Does the patient have a fever or illness today?: No Has the patient ever had Guillain-[place] Syndrome?: No Has the patient ever had any past reaction to a flu shot?: No Immunizations flu vacc [id number] 6mos up(PF) 60 mcg(15 mcgx4)/0.5 mL IM syringe Performing Provider: Heather Kebede MD [facility] Administered by: VALENCIA Jane on 06/23/23 13:32 Dose Route Admin Location Dispensed Lot Number Expiration Date NDC Application Security Architect 0.5 mL IM Right Deltoid 0.5 mL [id number] 11/23/22 [id number] [employer] VIS Given Date VIS Provided VIS Publication Date 06/23/23 Single Vaccine 21 Eligibility Eligibility Date Funding Source Not [facility] Eligible 06/23/23 Private Assessment and Plan Assessment & Plan (1) Obesity: Comment: PATIENT IS GROSSLY OBESE. HE IS VERY MOTIVATED TO LOSE WEIGHT. Code(s): E66.9 - Obesity, unspecified Plan: Diet and exercise (2) Congestive heart failure: Comment: September 2020 biventricular Patient has diagnosis of nonischemic cardiomyopathy. He is being treated for congestive heart failure., Being followed by cardiology service. Code(s): I50.9 - Heart failure, unspecified Plan: Continue with carvedilol hydralazine isosorbide mononitrate torsemide (3) Hypertension: Code(s): I10 - Essential (primary) hypertension Plan: Continue with blood pressure medication. Decrease salt intake and exercise (4) Nonischemic cardiomyopathy: Comment: 04/2023 N echo Code(s): I42.8 - Other cardiomyopathies Plan: Patient's recent echo was normal (5) Chronic kidney disease, stage 3: Code(s): N18.30 - Chronic kidney disease, stage 3 unspecified Plan: Keep well hydrated avoid NSAIDs (6) Impaired fasting blood sugar: Code(s): R73.01 - Impaired fasting glucose Plan: Decrease the amount of carbohydrate intake, pasta, bread, rice and potatoes are all sugar and that is aside from all the sweet stuff, remember that fruits are good but they are Sweet also. (7) JOYCELYN (obstructive sleep apnea): Comment: He has definite obstructive sleep apnea, mild to moderately severe, with mild nocturnal hypoxemia. I explained to the patient that, best option is to start on CPAP therapy. HOWEVER HE WAS NOT WILLING TO START THE CPAP THERAPY . HE IS INSISTING ON GIVING HIM MORE TIME. HE PLANS TO LOSE WEIGHT, ADVISE THAT HE SHOULD CONTINUE TO LOSE WEIGHT. SLEEP HYGIENE EXPLAINED. HE WILL CALL US TO BE SEEN FOR FOLLOW-UP IF NEEDED. IN THE MEANTIME HE SHOULD CONTINUE TO FOLLOW-UP REGULARLY BY HIS PCP AND ALSO SHE HAS BY CARDIOLOGY SERVICE Code(s): G47.33 - Obstructive sleep apnea (adult) (pediatric) Plan: Patient can not tolerate CPAP (8) PSA elevation: Code(s): R97.20 - Elevated prostate specific antigen [PSA] Plan: Resolved continue to monitor (9) Nasal congestion: Code(s): R09.81 - Nasal congestion Plan: discussed about nasal saline rinse to clear the sinuses, Orders: Orders Influenza [id number] Immunization Today Z23 - Encounter for immunization Coding Level of Care Code Est Pt Level 4 (79970) Diagnoses Obesity E66.9 Congestive heart failure I50.9 Hypertension I10 Nonischemic cardiomyopathy I42.8 Chronic kidney disease, stage 3 N18.30 Impaired fasting blood sugar R73.01 JOYCELYN (obstructive sleep apnea) G47.33 PSA elevation R97.20 Nasal congestion R09.81
== END 2023-06-23 14:00 ==
PROVIDERS: PCP Internal Medicine; Visit Provider Internal Medicine
DX: Z23 Encounter for immunization (principal); I13.0 Hypertensive heart and chronic kidney disease with heart failure and stage 1 through stage 4 chronic kidney disease, or unspecified chronic kidney disease; I50.9 Heart failure, unspecified; N18.30 Chronic kidney disease, stage 3 unspecified; I42.8 Other cardiomyopathies; R73.01 Impaired fasting glucose; G47.33 Obstructive sleep apnea (adult) (pediatric); R97.20 Elevated prostate specific antigen [PSA]; R09.81 Nasal congestion
CPT/HCPCS: 90471; 90686; 99214

== ENCOUNTER 2023-09-22 14:41 | Outpatient (REF) | payer OTHER, SELFPAY ==
[2023-09-22 15:06] LABS: MANUAL DIFF FLAG NO
[2023-09-22 15:39] LABS: Basophils Percent Auto 0.4 % (0-2); Eosinophils Absolute Auto 0.4 X10*3/uL (0.0-0.4); Eosinophils Percent Auto 4.9 % (0-4); Hematocrit 46.8 % (42.0-52.0); Hemoglobin 16.4 g/dl (14.0-18.0); Imm Gran Abs Auto 0.03 X10*3/uL (0.00-0.03); Imm Gran Pct Auto 0.4 % (0.0-0.4); Lymphocytes Absolute Auto 1.1 X10*3/uL (1.2-4.9); Lymphocytes Percent Auto 14.6 % (20-40); Mean Corpuscular Hemoglobin 30.8 pg (27.0-33.0); Mean Corpuscular Volume 87.8 fL (80.0-98.0); Mean Platelet Volume 10.1 fL (9.4-12.4); Monocytes Absolute Auto 0.6 X10*3/uL (0.1-1.2); Monocytes Percent Auto 7.9 % (2-11); Neutrophils Absolute Auto 5.6 x10*3/uL (2.0-8.3); Neutrophils Percent Auto 71.8 % (45-73); Platelet Count 181 X10*3/uL (160-400); Red Blood Count 5.33 X10*6/uL (4.60-5.80); White Blood Count 7.7 X10*3/uL (4.8-10.8)
[2023-09-22 16:11] LABS: Alanine Aminotransferase 15 U/L (0-40); Albumin Level 4.3 g/dL (3.5-5.0); Alkaline Phosphatase 117 U/L (39-117); Anion Gap 11 (12-20); Aspartate Amino Transferase 16 U/L (5-37); Bilirubin Total 0.7 mg/dL (0.0-1.0); Blood Urea Nitrogen 16 mg/dL (9-16); Calcium 8.7 mg/dL (8.4-10.2); Carbon Dioxide 31 mmol/L (22-29); Chloride 102 mmol/L (96-108); Estimated Glomerular Filt Rate 54; Glucose Random 130 mg/dL (60-115); Iron 88 mcg/dL (45-160); Magnesium 2.1 mg/dL (1.6-2.6); Percent Iron Saturation 32 % (15-50); Phosphorus 2.6 mg/dL (2.7-4.5); Potassium 3.6 mmol/L (3.3-5.1); Sodium 140 mmol/L (135-145); Total Iron Binding Capacity 274 mcg/dL (228-428); Unsaturated Iron Binding 186 ug/dL
[2023-09-22 16:28] LABS: Ferritin 91 ng/mL (20-250)
[2023-09-22 16:30] LABS: Appearance Urine Clear; Color Urine Yellow; Glucose Urine UA Negative (Negative); Leukocyte Esterase Urine Negative (Negative); Nitrite Urine Negative (Negative); Urine Blood Negative (Negative); Urine Ketones Negative (Negative); Urine Protein Negative (Neg-Trace)
[2023-09-22 16:36] LABS: Bacteria Urine None Seen (None Seen); Hyaline Casts Urine 0-2 /LPF (0-2); RBC Urine 0-2 /HPF (0-2); Squamous Epithelial Cell Urine 0-2 /HPF (0-2); WBC Urine 0-5 /HPF (0-5)
[2023-09-22 17:00] LABS: Creatinine Urine 41.32 mg/dL; Total Protein Urine Random < 7 mg/dL (<12)
== END 2023-09-22 14:42 | disposition home or self-care (01) ==
LOC: HO.LAB 14:41
PROVIDERS: PCP Internal Medicine; Visit Provider Internal Medicine
DX: I10 Essential (primary) hypertension (principal); Z79.899 Other long term (current) drug therapy
CPT/HCPCS: 36415; 80053; 81001; 82570; 82728; 83540; 83735; 84100; 84156; 85025

== ENCOUNTER 2024-03-18 13:33 | Outpatient (REF) | payer OTHER, SELFPAY ==
[2024-03-18 13:53] LABS: MANUAL DIFF FLAG NO
[2024-03-18 14:11] LABS: Basophils Percent Auto 0.4 % (0-2); Eosinophils Absolute Auto 0.3 X10*3/uL (0.0-0.4); Eosinophils Percent Auto 4.8 % (0-4); Hemoglobin 17.4 g/dl (14.0-18.0); Imm Gran Abs Auto 0.02 X10*3/uL (0.00-0.03); Imm Gran Pct Auto 0.3 % (0.0-0.4); Lymphocytes Absolute Auto 1.2 X10*3/uL (1.2-4.9); Lymphocytes Percent Auto 17.5 % (20-40); Mean Corpuscular HGB Conc 36.3 g/dl (31.0-36.0); Mean Corpuscular Volume 88.4 fL (80.0-98.0); Monocytes Absolute Auto 0.5 X10*3/uL (0.1-1.2); Monocytes Percent Auto 7.6 % (2-11); Neutrophils Absolute Auto 4.9 x10*3/uL (2.0-8.3); Neutrophils Percent Auto 69.4 % (45-73); Platelet Count 175 X10*3/uL (160-400); Red Blood Count 5.43 X10*6/uL (4.60-5.80); Red Cell Distribution Width 13.2 % (11.0-16.0); White Blood Count 7.1 X10*3/uL (4.8-10.8)
[2024-03-18 14:19] LABS: Estimated Average Glucose 111 mg/dL; Hemoglobin A1C 157.3517 umol/L; Hemoglobin A1c % 5.5 % (<6.0); Total Hemoglobin (HGBA1C) 4331.6952 umol/L
[2024-03-18 14:47] LABS: Anion Gap 11 (12-20); Blood Urea Nitrogen 17 mg/dL (9-16); Carbon Dioxide 28 mmol/L (22-29); Chloride 106 mmol/L (96-108); Estimated Glomerular Filt Rate 60; Iron 105 mcg/dL (45-160); Magnesium 2.2 mg/dL (1.6-2.6); Parathyroid Hormone Intact 106.8 pg/mL (8.7-77.1); Percent Iron Saturation 35 % (15-50); Potassium 4.5 mmol/L (3.3-5.1); Sodium 140 mmol/L (135-145); Total Iron Binding Capacity 301 mcg/dL (228-428); Unsaturated Iron Binding 196 ug/dL; Uric Acid 7.3 mg/dL (3.4-7.0)
[2024-03-18 15:01] LABS: Ferritin 187 ng/mL (20-250); Vitamin D 25-OH Total 14.2 ng/mL (>30)
[2024-03-18 15:31] LABS: Appearance Urine Clear; Color Urine Yellow; Glucose Urine UA Negative (Negative); Leukocyte Esterase Urine Trace (Negative); Nitrite Urine Negative (Negative); UMIC TRIGGER UA YES; Urine Blood Negative (Negative); Urine Ketones Negative (Negative); Urine Protein Trace mg/dL (Neg-Trace)
[2024-03-18 15:35] LABS: Bacteria Urine None Seen (None Seen); Hyaline Casts Urine 0-2 /LPF (0-2); RBC Urine 0-2 /HPF (0-2); Squamous Epithelial Cell Urine 0-2 /HPF (0-2); WBC Urine 0-5 /HPF (0-5)
[2024-03-18 16:15] LABS: Creatinine Urine 158.68 mg/dL; Microalbum/Creatinine Ratio Ur 28.3 ug/mg cr (<30); Protein/Creatinine Ratio, Ur 0.13 (<0.2); Total Protein Urine Random 20 mg/dL (<12)
== END 2024-03-18 13:34 | disposition home or self-care (01) ==
LOC: HO.LAB 13:33
PROVIDERS: Absent Provider Internal Medicine; PCP Internal Medicine; Visit Provider Internal Medicine
DX: I12.9 Hypertensive chronic kidney disease with stage 1 through stage 4 chronic kidney disease, or unspecified chronic kidney disease (principal); N18.31 Chronic kidney disease, stage 3a; Z13.1 Encounter for screening for diabetes mellitus
CPT/HCPCS: 36415; 80051; 81001; 82043; 82306; 82310; 82565; 82570; 82728; 83036; 83540; 83735; 83970; 84100; 84156; 84520; 84550; 85025

== ENCOUNTER 2024-05-12 14:15 | Outpatient (AMB) | payer OTHER, SELFPAY ==
[2024-05-12 14:16] VITALS: BP 160/82; PULSE 87; O2SAT 95; BMI 40.2
--- NOTE | 2024-05-12 14:16 | A.OFFPC_ITS ---
Vital Signs 05/12/24 14:16 05/12/24 14:30 Height 5 ft 3 in Weight 227 lb BMI 40.2 BP 160/82 H 140/80 H Blood Pressure Location Lt brachial Lt brachial Position Sitting Sitting Pulse 87 Pulse Source Pulse Oximeter Pulse Oximetry (%) 95 Oxygen Delivery Method Room Air Intake Visit Reasons: Physical Allergies seafood Allergy (Verified 05/12/24 14:17) Angioedema Medication List - Last Reconciled 05/12/24 by Heather Kebede MD amlodipine 10 mg PO DAILY 90 days carvedilol 25 mg PO BID 90 days cyanocobalamin (vitamin B-12) 1,000 mcg PO DAILY hydralazine 100 mg PO TID 90 days triamcinolone acetonide 0.5% 1 appl topical BID Tobacco use date assessed: 06/23/23 Dental Screening Dental Screen Date: 06/23/23 HPI Physical HPI Details 54-year-old morbidly obese male(9 lb maddie ght gain) with a history of hypertension cardiomyopathy congestive heart failure chronic kidney disease impaired glucose tolerance obstructive sleep apnea coming in for physical exam last seen in June 2027. Patient's last colonoscopy was in 2021 with tubular adenoma. Patient follows up with Nephrology seen in 03/25/2024 stage IIIA chronic kidney disease without significant proteinuria torsemide and Imdur and hydrochlorothiazide were discontinued. Concern about obstructive sleep apnea. Echocardiogram was last done in 05/05/2023 with an ejection fraction 5th 65-70% BP at home is good [facility] Medical History (Updated 05/12/24 @ 14:27 by Heather Kebede MD) Obesity JOYCELYN (obstructive sleep apnea) Hypertension Congestive heart failure Surgical History History of tonsillectomy Family History (Updated 03/07/23 @ 12:56 by Heather Kebede MD) Maternal Grandfather Lung cancer Paternal Grandfather Lung cancer Paternal Uncle Lung cancer Other Drug overdose Social History (Updated 05/12/24 @ 14:33 by Heather Kebede MD) Housing: Apartment Alcohol intake: current Comment: 2x a year 1-2 glasses Patient Tobacco Use Status: Former Tobacco user Tobacco use type: Cigarette Years Smoked: quit 20 years old cigar smoking 01/2023 e-Cigarette/Vaping Use: Never Used Second Hand Smoke Exposure: No service: No Current occupational status: employed Current occupational exposures/hazards: No Cognitive needs: No Hearing needs: No Vision needs: Yes Questionnaire PHQ-9 Over the last 2 weeks, how often have you been bothered by any of the following problems? 1. Little interest or pleasure in doing things: not at all 2. Feeling down, depressed, or hopeless: not at all 3. Trouble falling or staying asleep, or sleeping too much: not at all 4. Feeling tired or having little energy: not at all 5. Poor appetite or overeating: not at all 6. Feeling bad about yourself - or that you are a failure or have let yourself or your family down: not at all 7. Trouble concentrating on things, such as reading the newspaper or watching television: not at all 8. Moving or speaking so slowly that other people could have noticed. Or the opposite - being so fidgety or restless that you have been moving around a lot more than usual: not at all 9. Thoughts that you would be better off or of hurting yourself in some way: not at all Total score: 0 Depression Screening Interpretation: Negative Depression Screening Done: Yes Source: Developed by Drs. Marvin Zayas, Sophy Coats, Duane Cross and colleagues, with an educational christopher from [employer]. Thrive Questionnaire Date Thrive assessed: 05/12/24 I am a: Patient What is your living situation today?: I have a steady place to live Within the past 12 months, did the food you bought not last and you didn't have the money to get more?: Never true Within the past 12 months, did you worry whether your food would run out before you got money to buy more?: Never true Do you have trouble paying for medicines?: No Do you have trouble getting transportation to medical appointments?: No Do you have trouble paying your heating and electricity bill?: No Do you have trouble taking care of your child, family member or friend?: No Do you have trouble with day-to-day activities such as bathing, preparing meals, shopping, managing finances, etc.?: No Are you currently unemployed and looking for a job?: No Are you interested in more education?: No Currently or been in a relationship where the following occur: No concerns reported THRIVE Score: 0 AUDIT C Alcohol Use Questionnaire (AUDIT-C) 1. How often do you have a drink containing alcohol?: Never 3. How often do you have six or more drinks on one occasion?: Never Total Score: 0 SHON-7 AMB Questionnaire SHON-7 Date SHON - 7 assessed: 05/12/24 Feeling nervous, anxious, or on edge: 0 = Not at all Not being able to stop or control worryin = Not at all Worrying too much about different things: 0 = Not at all Trouble relaxin = Not at all Being so restless that it is hard to sit still: 0 = Not at all Becoming easily annoyed or irritable: 0 = Not at all Feeling afraid as if something awful might happen: 0 = Not at all Total SHON-7 score (0-4 normal; 5-9 mild; 10-14 moderate; 15-21 severe): 0 Source: Developed by Drs. Marvin Zayas, Sophy Coats, Duane Cross and colleagues, with an educational christopher from [employer]. Review of Systems Const Denies poor appetite and Denies weakness Eyes Denies no additional complaints ENT Reports Normal hearing present, Denies dizziness, Denies nasal congestion, Denies tinnitus and Denies sore throat Card Denies chest pain, Denies syncope, Denies rapid heart rate and Denies dyspnea Resp Denies cough and Denies dyspnea GI Denies change in stool character, Reports constipation, Denies diarrhea, Denies nausea and Denies vomiting Denies dysuria and Denies urinary frequency Neuro Reports Normal hearing present, Denies confusion, Denies dizziness, Denies syncope and Denies weakness Psych Denies confusion Physical exam (Primary Care) Vital Signs: Last Vital Signs Pulse 87 05/12/24 14:16 BP 140/80 H 05/12/24 14:30 Pulse Ox 95 05/12/24 14:16 Oxygen Delivery Method Room Air 05/12/24 14:16 BMI result Body Mass Index 40.2 Tobacco/Smoking Status: Tobacco use Status Tobacco use date assessed 06/23/23 05/12/24 14:21 Patient Tobacco Use Status Former Tobacco user 05/12/24 14:33 Tobacco use type Cigarette 05/12/24 14:33 e-Cigarette/Vaping Use Never Used 05/12/24 14:33 PHQ-9: PHQ-9 Score PHQ-9: Total score 0 05/12/24 14:27 Depression Screening Interpretation: Negative Thrive Assessment: Date of Thrive Assessment Date Thrive assessed 05/12/24 05/12/24 14:21 Currently or been in a relationship where the following occur: No concerns reported Const General: No confusion Orientation/consciousness: No confusion HENMT Head: Yes normocephalic Ears: external ears normal and TM's normal bilaterally Face and sinus: Yes normal facial exam Mouth: moist mucous membranes Throat: Yes tonsils normal Eyes Conjunctivae: conjunctivae normal Pupils: Equal, round and reactive pupils present and Pupil accommodation reflex normal Direct Ophthalmoscopy: normal light reflex Neck Neck: No lymphadenopathy Thyroid: Thyroid normal Chest Chest palpation & inspection: normal inspection of the chest Resp Effort & Inspection: normal respiratory effort and no audible wheezes Auscultation: clear to auscultation bilaterally, no crackles, no wheezes and lung sounds not diminished Cardio Rate: regular rate Rhythm: regular rhythm Peripheral pulses: radial pulses present and dorsalis pedis present GI Palpation (GI): no masses Auscultation: normal bowel sounds and normoactive bowel sounds Rectal Exam - Male: Yes deferred Skin General skin exam: no rashes or lesions noted Rashes: no rashes Neuro General: No confusion Cranial nerves: Yes Equal, round and reactive pupils present and Yes Normal hearing present Cognition (Neuro): normal cognition Gait exam (Neuro): Normal gait present Motor exam (neuro): 5/5 motor strength present throughout Deep tendon reflexes (DTR's): Right brachioradialis reflex intensity grade: 2+, Left brachioradialis reflex intensity grade: 2+, Right patellar reflex intensity grade: 2+ and Left patellar reflex intensity grade: 2+ Extrem General: No edema Office Procedures Flu Questionnaire Does the patient have a severe egg allergy?: No Does the patient have severe life threatening allergies?: No Does the patient have a fever or illness today?: No Has the patient ever had Guillain-[place] Syndrome?: No Has the patient ever had any past reaction to a flu shot?: No Immunizations Fluarix Triv [id number] (PF) 45 mcg (15 mcg x 3)/0.5 mL IM syringe Performing Provider: Heather Kebede MD [facility] Administered by: VALENCIA Keenan on 05/12/24 14:54 Dose Route Admin Location Dispensed Lot Number Expiration Date NDC Food Service Substitute 0.5 mL IM Left Deltoid 0.5 mL [id number] 12/13/24 [id number] IMV[employer] VIS Given Date VIS Provided VIS Publication Date 05/12/24 Single Vaccine 21 Eligibility Eligibility Date Funding Source Not [facility] Eligible 05/12/24 Private Coding Level of Care Code Est Pt Prev Care 40-64y(77038) Diagnoses Annual physical exam Z00.00 Nonischemic cardiomyopathy I42.8 Morbidly obese E66.01 Congestive heart failure, unspecified HF chronicity, unspecified heart failure type I50.9 Heart failure chronicity: unspecified Heart failure type: unspecified Primary hypertension I10 Hypertension type: primary hypertension Stage 3a chronic kidney disease N18.31 Chronic kidney disease stage 3 subtype: stage 3a (GFR 45-59) PSA elevation R97.20 Assessment & Plan Assessment & Plan (1) Annual physical exam: Code(s): Z00.00 - Encounter for general adult medical examination without abnormal findings Category: Medical Plan: Patient is advised to eat healthy, keep well hydrated, keep active and have adequate sleep. (2) Nonischemic cardiomyopathy: Comment: 04/2023 N echo Code(s): I42.8 - Other cardiomyopathies Category: Medical Plan: The heart has recovered with a normal echocardiogram 05/05/2023. (3) Morbidly obese: Code(s): E66.01 - Morbid (severe) obesity due to excess calories Category: Medical Plan: Diet and exercise (4) Congestive heart failure: Comment: September 2020 biventricular Patient has diagnosis of nonischemic cardiomyopathy. He is being treated for congestive heart failure., Being followed by cardiology service. Code(s): I50.9 - Heart failure, unspecified Category: Medical Qualifiers: Heart failure chronicity: unspecified Heart failure type: unspecified Qualified Code(s): I50.9 - Heart failure, unspecified Plan: Heart has recovered with a normal ejection fraction. Will need to continue monitoring. (5) Hypertension: Code(s): I10 - Essential (primary) hypertension Category: Medical Qualifiers: Hypertension type: primary hypertension Qualified Code(s): I10 - Essential (primary) hypertension Plan: Presently on amlodipine 10 mg once a day carvedilol 25 mg twice a day and hydralazine 100 mg 3 times a day. (6) Chronic kidney disease, stage 3: Code(s): N18.30 - Chronic kidney disease, stage 3 unspecified Category: Medical Qualifiers: Chronic kidney disease stage 3 subtype: stage 3a (GFR 45-59) Qualified Code(s): N18.31 - Chronic kidney disease, stage 3a Plan: Keep well hydrated, and avoid NSAIDs (7) PSA elevation: Code(s): R97.20 - Elevated prostate specific antigen [PSA] Category: Medical Plan: Continuing to monitor Orders: Orders B Type Natriuretic Peptide Today I50.9 - Heart failure, unspecified Comprehensive Met. Panel Today I42.8 - Other cardiomyopathies Thyroid Stimulating Hormone Today I42.8 - Other cardiomyopathies Prostate Specific Antigen Scr Today I42.8 - Other cardiomyopathies Influenza [id number] Immunization Today Z23 - Encounter for immunization Complete Blood Count Auto Diff Today I42.8 - Other cardiomyopathies Lipid Panel Today E78.00 - Pure hypercholesterolemia, unspecified, I42.8 - Other cardiomyopathies Vitamin B12 and Folate Today I42.8 - Other cardiomyopathies Free T4 (Free Thyroxine) Today I42.8 - Other cardiomyopathies Medications: New Fluarix Triv [id number] (PF) (flu vacc [id number] 6mos up(PF)) 0.5 mL IM ONCE 0.5 mL 0RF NS Z23 - Encounter for immunization
[2024-05-12 14:30] VITALS: BP 140/80
== END 2024-05-12 14:55 | disposition home or self-care (01) ==
PROVIDERS: PCP Internal Medicine; Visit Provider Internal Medicine
DX: Z00.00 Encounter for general adult medical examination without abnormal findings (principal); I13.10 Hypertensive heart and chronic kidney disease without heart failure, with stage 1 through stage 4 chronic kidney disease, or unspecified chronic kidney disease; I50.9 Heart failure, unspecified; N18.31 Chronic kidney disease, stage 3a; E66.01 Morbid (severe) obesity due to excess calories; I42.8 Other cardiomyopathies; Z68.41 Body mass index [BMI] 40.0-44.9, adult; R97.20 Elevated prostate specific antigen [PSA]

== ENCOUNTER → 2024-05-12 14:15 | Outpatient (BNVA) | payer OTHER, SELFPAY | PROVIDERS: PCP Internal Medicine; Visit Provider Internal Medicine | DX: Z00.00 Encounter for general adult medical examination without abnormal findings (principal); Z23 Encounter for immunization; I42.8 Other cardiomyopathies; E66.01 Morbid (severe) obesity due to excess calories; I13.0 Hypertensive heart and chronic kidney disease with heart failure and stage 1 through stage 4 chronic kidney disease, or unspecified chronic kidney disease; I50.9 Heart failure, unspecified; N18.31 Chronic kidney disease, stage 3a; R97.20 Elevated prostate specific antigen [PSA]; Z79.899 Other long term (current) drug therapy | CPT/HCPCS: 90471; 90656; 96127 ==

== ENCOUNTER 2024-05-19 12:21 | Outpatient (REF) | payer OTHER, SELFPAY ==
[2024-05-19 12:40] LABS: MANUAL DIFF FLAG NO
[2024-05-19 13:29] LABS: Basophils Percent Auto 0.5 % (0-2); Eosinophils Absolute Auto 0.4 X10*3/uL (0.0-0.4); Eosinophils Percent Auto 7.4 % (0-4); Hematocrit 49.6 % (42.0-52.0); Hemoglobin 18.1 g/dl (14.0-18.0); Imm Gran Abs Auto 0.03 X10*3/uL (0.00-0.03); Imm Gran Pct Auto 0.5 % (0.0-0.4); Lymphocytes Absolute Auto 1.2 X10*3/uL (1.2-4.9); Lymphocytes Percent Auto 20.3 % (20-40); Mean Corpuscular HGB Conc 36.5 g/dl (31.0-36.0); Mean Corpuscular Hemoglobin 32.4 pg (27.0-33.0); Mean Corpuscular Volume 88.7 fL (80.0-98.0); Mean Platelet Volume 10.2 fL (9.4-12.4); Monocytes Absolute Auto 0.4 X10*3/uL (0.1-1.2); Monocytes Percent Auto 6.8 % (2-11); Neutrophils Absolute Auto 3.8 x10*3/uL (2.0-8.3); Neutrophils Percent Auto 64.5 % (45-73); Platelet Count 147 X10*3/uL (160-400); Red Blood Count 5.59 X10*6/uL (4.60-5.80); Red Cell Distribution Width 12.8 % (11.0-16.0); White Blood Count 5.9 X10*3/uL (4.8-10.8)
[2024-05-19 14:00] LABS: B Type Natriuretic Peptide < 10 pg/mL (<100)
[2024-05-19 14:27] LABS: Alanine Aminotransferase 28 U/L (0-40); Albumin Level 4.6 g/dL (3.5-5.0); Alkaline Phosphatase 130 U/L (39-117); Anion Gap 11 (12-20); Aspartate Amino Transferase 26 U/L (5-37); Bilirubin Total 0.7 mg/dL (0.0-1.0); Blood Urea Nitrogen 16 mg/dL (9-16); Calcium 8.8 mg/dL (8.4-10.2); Carbon Dioxide 27 mmol/L (22-29); Chloride 106 mmol/L (96-108); Cholesterol 144 mg/dL (<200); Estimated Glomerular Filt Rate > 60; Glucose Random 123 mg/dL (60-115); HDL Cholesterol 32 mg/dL (>40); LDL Cholesterol Calculated 67 mg/dL (<100); Sodium 140 mmol/L (135-145); Total Protein 7.4 g/dL (6.5-8.0); Triglycerides 228 mg/dL (<150)
[2024-05-19 14:57] LABS: Free T4 (Free Thyroxine) 1.14 ng/dL (0.71-1.85); Thyroid Stimulating Hormone 1.06 uIU/mL (0.32-4.0)
[2024-05-19 15:08] LABS: Folate 7.5 ng/mL (> or = 4.0); Prostate Specific Antigen Scr 4.22 ng/mL (<0.05-4.0); Vitamin B12 219 pg/mL (200-900)
--- OUTSIDE RECORDS SUMMARY | 2024-05-25 18:45 | XMS_ITS | Patient Health Record ---
Author Organization [facility] Address [address] [place] [address] Care Team Providers Care Assembly Operator Name Role Phone Heather Kebede MD Primary Care Provider Yonny Galvez Jr Unavailable REASON FOR REFERRAL No Information MEDICATIONS Medication SIG (Take, Route, Frequency, Duration) Notes Start Date End Date Status Carvedilol 25 MG TAKE 1 TABLET BY JOSE TH TWICE DAILY Oral for 30 Active MiraLax (colon prep) 17 GM/SCOOP mixed with Gatorade or Crystal Light Orally begin at 5:00 p.m. the day before the procedure for 1 day 09/06/2021 Active amLODIPine Besylate 10 MG TAKE 1 TABLET BY MOUTH DAILY Oral Active hydrALAZINE HCl 100 MG 1 tablet with tex d Oral Three times a day Active Isosorbide Mononitrate ER 60 MG TAKE 1 AND 1/2 TABLETS BY MOUTH DAILY Oral for 30 Active Torsemide 20 MG TAKE 2 TABLETS BY MO UTH DAILY Oral for 30 Active IMMUNIZATIONS Vaccine Route Administration Date Status Comme nts Influenza Unknown 03/16/2021 Administered SOCIAL HISTORY Tobacco Use: Social History Observation Description Date Details (start date - stop date) Never Smoker NA - NA Sex Assigned At : Social History Observation Description Sex Assigned At Unknown Tobacco Use/Smoking Question Answer Notes Patient is a nonsmoker Alcohol Screen Question Answer Notes Did you have a drink contain ing alcohol in the past year? Yes How often did you have a dri nk containing alcohol in the past year? Never (0 point) How many drinks did you have on a typical day when you were drinking in the past year? 1 or 2 drinks (0 point) Points 0 Interpretation Negative PROBLEMS Problem Type ICD Code Onset Dates Problem Status W/U Status Risk SNOMED Code Notes Problem Colon cancer screening (Z12.11) Active confirmed 641779146 Problem FPC current use of diuretic (Z79.899) Active confirmed [id number] PLAN OF TREATMENT Future Test Test Name Order Date COLONOSCOPY 09/06/2021 Insurance Providers Payer Name Payer Address Payer Phone Subscriber Number Group Number Insured Name Patient Relationship to Insured Coverage Start Date Coverage End Date [employer] Plan [address] Heidi zacarias [place] [phone] [id number] MICHAEL LAW Self - patient is the insured MEDICAL (GENERAL) HISTORY Medical History History ICD Code Nonischemic cardiomyopathy hypertension Biventricular congestive heart failure CKD STAGE III elevated BMI JOYCELYN Surgical History Surgery Date(Month/Year) tonsillectomy
== END 2024-05-19 12:22 | disposition home or self-care (01) ==
LOC: HO.LAB 12:21
PROVIDERS: PCP Internal Medicine; Visit Provider Internal Medicine
DX: I50.9 Heart failure, unspecified (principal); I42.8 Other cardiomyopathies; E78.00 Pure hypercholesterolemia, unspecified; Z12.5 Encounter for screening for malignant neoplasm of prostate
CPT/HCPCS: 36415; 80053; 80061; 82607; 82746; 83880; 84153; 84439; 84443; 85025

== ENCOUNTER 2024-07-19 14:25 | Outpatient (AMB) | payer OTHER, SELFPAY ==
--- NOTE | 2024-07-19 14:30 | A.OFFVIS_ITS ---
Intake Visit Reasons: elevated PSA Intake Note: New Patient presents for initial visit for elevated psa * Last PSA 24: 4.22 Urology Medications: none Blood Thinner: none Chemical Processing Laborer Required: No Accompanied by: Self / Same As Patient Allergies seafood Allergy (Verified 07/19/24 15:02) Angioedema Medication List - Last Reconciled 07/19/24 by OSCAR Albarran- amlodipine 10 mg PO DAILY 90 days carvedilol 25 mg PO BID 90 days hydralazine 100 mg PO TID 90 days triamcinolone acetonide 0.5% 1 appl topical BID HPI Comments Details: Antoni is a 54-year-old male patient of . He has a past medical history of obesity, obstructive sleep apnea, hypertension, and congestive heart failure. He presents to the office today as a new patient for an elevated PSA. In discussion with the patient today he reports having followed up with his PCP at which time PSA was noted to be elevated and recommendation was made for urology referral for further assessment evaluation. He is unsure as if he has a family history of prostate cancer. He does report noting nocturia up to 5 times per night. He does report a longstanding history of obstructive sleep apnea and endorses noncompliance with CPAP machine. We discussed at length correlation of sleep apnea and episodes of nocturia. He also reports to be performing timed/scheduled voiding as there are times he does not feel he needs to use the bathroom although he knows he needs to. In office urinalysis results reviewed with the patient today. We discussed at length potential causes of lower urinary tract symptoms patient is experiencing as well as elevated PSA. We discussed further treatment options and risks and benefits of these treatment options. Will obtain retroperitoneal ultrasound for further assessment evaluation. He denies urinary urgency, urinary frequency, incontinence, hematuria, dysuria, foul smelling urine, changes to urinary stream, flank pain, fever, and or chills. ANUPAM offered however deferred. In review of patient's chart PSAs are as follows: 04/05 2.7, 03/07 2.5, 03/08 4.4, 06/07 3.7, 06/08 4.2 % free PSA 12%. He otherwise offers no other issues or concerns at this time. [facility] Medical History Obesity JOYCELYN (obstructive sleep apnea) Hypertension Congestive heart failure Surgical History History of tonsillectomy Family History Maternal Grandfather Lung cancer Paternal Grandfather Lung cancer Paternal Uncle Lung cancer Other Drug overdose Social History Housing: Apartment Alcohol intake: current Comment: 2x a year 1-2 glasses Patient Tobacco Use Status: Former Tobacco user Tobacco use type: Cigarette Years Smoked: quit 20 years old cigar smoking 01/2023 e-Cigarette/Vaping Use: Never Used Second Hand Smoke Exposure: No service: No Current occupational status: employed Current occupational exposures/hazards: No Cognitive needs: No Hearing needs: No Vision needs: Yes Review of Systems Const All systems reviewed & are unremarkable except as noted in HPI and below Eyes Reports no additional complaints ENT Reports no additional complaints Card Reports as per HPI Resp Reports as per HPI GI Reports no additional complaints Reports as per HPI Musc Reports no additional complaints Neuro Reports no additional complaints Psych Reports no additional complaints Endo Reports no additional complaints Jabier/Lymph Reports no additional complaints Aller/Immun Reports no additional complaints Physical Exam Const General: cooperative, healthy appearing, comfortable, no acute distress, well developed, alert and awake Nutritional Appearance: overweight Orientation/consciousness: patient oriented x3 Limitations: no limitations HEENT Head: Yes normal to inspection, Yes normocephalic and Yes atraumatic Ears: hearing grossly normal bilaterally Neck Neck: Yes normal visual inspection and Yes trachea midline Chest Chest palpation & inspection: normal inspection of the chest Resp Effort & Inspection: normal respiratory effort and able to speak in complete sentences Cardio Rate: regular rate GI Inspection: Yes normal to inspection General: Yes no CVA tenderness Back/Spine/Pelvis Back: no CVA tenderness Skin General skin exam: no rashes or lesions noted Neuro General: patient oriented x3 Extrem General: Yes normal to inspection Psych Appearance: grossly normal and well kempt Mental Status: mental status grossly normal Speech and movement: Normal speech and movement present and Clear speech present Affect: normal affect Attitude: cooperative Thought process: Normal thought process present Thought content: Normal thought content present Insight: Fair insight present (Psych) Judgement: Fair judgement present (Psych) Results AMB Urinalysis, Automated UA Leukoctes 15 Shanel/uL Last Edit by [email or web address] on 07/19/24 14:46 UA Nitrite Last Edit by [employer] on 07/19/24 14:46 UA Urobilinogen 1 mg/dL Last Edit by [employer] on 07/19/24 14:46 UA Protein 30 mg/dL Last Edit by [employer] on 07/19/24 14:46 UA pH 6.0 Last Edit by [email or web address] on 07/19/24 14:46 UA Blood 0 Home/uL Last Edit by [employer] on 07/19/24 14:46 UA Specific [place] 1.015 Last Edit by [email or web address] on 07/19/24 14:46 UA Ketone Negative Last Edit by [employer] on 07/19/24 14:46 UA Bilirubin 0 mg/dL Last Edit by [employer] on 07/19/24 14:46 UA Glucose 0 mg/dL Last Edit by [email or web address] on 07/19/24 14:46 Results Reviewed Results Reviewed: Laboratory Last Values Urine pH (Auto) 6.0 07/19/24 14:39 Specific [place] (Auto) 1.015 07/19/24 14:39 Urine Protein (Auto) 30 mg/dL 07/19/24 14:39 Glucose (UA)(Auto) 0 mg/dL 07/19/24 14:39 Urine Ketones (Auto) Negative 07/19/24 14:39 Urine Blood (Auto) 0 Home/uL 07/19/24 14:39 Urine Bilirubin (Auto) 0 mg/dL 07/19/24 14:39 Urine Urobilinogen (Auto) 1 mg/dL 07/19/24 14:39 Leukocyte Esterase (Auto) 15 Shanel/uL 07/19/24 14:39 Assessment & Plan Assessment & Plan (1) PSA elevation: Code(s): R97.20 - Elevated prostate specific antigen [PSA] Category: Medical (2) Nocturia: Code(s): R35.1 - Nocturia Category: Medical Plan In office urinalysis results reviewed with the patient today; as noted above. Will obtain retroperitoneal ultrasound for further assessment evaluation. We discussed at length potential causes of lower urinary tract symptoms as well as elevated PSA; we discussed further treatment options and risks and benefits of these treatment options. Will obtain PSA free and total; discussed obtaining labs with no caffeine morning of blood work, no heavy lifting 1-2 days prior, and no sexual activity the night before and or morning of blood work. Start Flomax as discussed and prescribed. We discussed importance of compliance with CPAP for overall health and well- being. We discussed bladder triggers/irritants. We discussed importance of limiting fluids 2-3 hours prior to bed to decrease episodes of nocturia. ANUPAM offered however deferred. Follow-up in 1-3 months with imaging and labs to be completed prior; or sooner with any issues, concerns, and or questions. Orders: Orders Prostate Specific Antigen Today R97.20 - Elevated prostate specific antigen [PSA] AMB Urinalysis Automated Today Z13.9 - Encounter for screening, unspecified US retroperitoneal comp Today R35.1 - Nocturia, R97.20 - Elevated prostate specific antigen [PSA] Medications: New tamsulosin 0.4 mg PO BEDTIME 30 weeks 30 caps 3RF R39.9 - Unspecified symptoms and signs involving the genitourinary system Patient Instructions: The patient had an opportunity to ask questions regarding the treatment plan. All questions were answered. Physical exam, labs, and imaging were discussed and reviewed in detail. As well as risks, benefits, and discussion of treatment choices. No major barriers to understanding were identified. The patient expressed understanding and agreement with the above treatment plan. The patient was made aware they should contact our office by phone for worsening of their current condition, the appearance of new symptoms, or with any questions or concerns. Compliance is encouraged with any medications and follow up testing that is ordered. It is a privilege to be allowed the opportunity to participate in? your urological care.? Again, if you have any questions or concerns If you have any questions or concerns please do not hesitate to contact me. The office is [phone]. This note is constructed using voice recognition software. While every effort has been made to ensure accuracy tongue presser errors may have been included. Yours sincerely, Grisel Em, SITE INSPECTOR-BC Coding Level of Care Code New Pt Level 4 (73851) Diagnoses PSA elevation R97.20 Nocturia R35.1
--- OUTSIDE RECORDS SUMMARY | 2024-07-19 16:04 | XMS_ITS | Clinical Summary ---
Author Organization [facility] Address [address] [place] [address] Phone Care Team Providers Care Calcine Furnace Tender Name Role Phone Heather Kebede MD Primary Care Provider [phone] Allergies Active Allergy Reactions Criticality Noted Date Comments Shellfish Allergy 08/20/2021 Medications carvedilol (COREG) 25 MG tablet Take 1 tablet (25 mg total) by mouth twice a day 60 tablet 2 1 Active hydrALAZINE 100 MG tablet Take 100 mg by mouth 3 times a day 1 Active amLODIPine (NORVASC) 10 MG tablet Take 1 tablet by mouth 1 (one) time each day 5 Active lisinopril 20 MG tablet Take 1 tablet by mouth 1 (one) time each day 5 Active triamcinolone (KENALOG) 0.5 % cream 2 (two) times a day APPLY TOPICALLY TO THE AFFECTED AREA TWICE DAILY 3 Active cholecalciferol (VITAMIN D-3) 250 MCG (14463 UT) capsule Take 1 capsule (10,000 Units total) by mouth every 7 (seven) days 12 capsule 1 4 09/22/19 25 Active Active Problems Problem Noted Date Diagnosed Date Long-term current use of drug therapy 01/22/2023 01/22/2023 Screening for malignant neoplasm of colon 202201/22/2023 Essential (primary) hypertension 04/19/2021 Family History Medical History Relation Comments Hypertension Mother Relation Status Comments Father Mother Social History Tobacco Use Types Packs/Day Years Used Date Smoking Tobacco: Never Smokeless Tobacco: Never Tobacco Cessation:Counseling Given: Not Answered Alcohol Use Standard Drinks/Week Comments Yes 0 (1 standard drink = 0.6 oz pur e alcohol) socially Sex and Gender Information Value Date Recorded Sex Assigned at Not on file Legal Sex Male 9:54 AM EDT Gender Identity Not on file Sexual Orientation Not on file Last Filed Vital Signs Vital Sign Reading Time Taken Comments Blood Pressure 122/80 03/25/2024 1:50 PM EDT Pulse 72 03/25/2024 1:50 PM EDT Temperature - - Respiratory Rate - - Oxygen Saturation 97% 03/25/2024 1:50 PM EDT Inhaled Oxygen Concentration - - Weight 102 kg (224 lb 3.2 oz) 03/25/2024 1:50 PM EDT Height 160 cm (5' 3 ) 04/20/2021 2:02 PM EDT Body Mass Index 39.72 04/20/2021 2:02 PM EDT Plan of Treatment Upcoming Encounters Date Type Department Care Team (Late st Contact Info) Description 09/09/2024 3:00 PM EDT Office Visit [facility] [address] [place] [address] Stevo Oakley MD [address] [address] Health Maintenance Due Date Last Done Comments Pneumococcal Vaccine: Pediat rics (0 to 5 Years) and At-Risk Patients (6 to 64 Years) (1 of 2 - PCV) 1975 Hepatitis B Vaccine (1 of 3 - 19+ 3-dose series) 03/28 Colorectal Cancer Screening: Annual FOBT 2018 Colorectal Cancer Screening: Colonoscopy 2018 Colorectal Cancer Screening: Sigmoidoscopy 2018 Influenza Vaccine (#1) 2024 Insurance [address] [place] [id number] [place] [address] [facility] COMMERCIAL Care Teams Calcine Furnace Tender Relationship Specialty Start Date End Date Heather Kebede MD [facility] [place] [address] [place], [place] PCP - General Internal Medicine 06/16/20
--- OUTSIDE RECORDS SUMMARY | 2024-07-19 16:04 | XMS_ITS | Encounter Summary ---
Author Organization [facility] Address [address] [facility] [address] [place] [address] Phone Care Team Providers Care Scanning Coordinator Name Role Phone Heather Kebede MD Primary Care Provider [phone] Encounter Details Date Type Department Care Team (Late Contact Info) Description 12/19/2020 Orders Only [facility] [address] [place] [address] Jd Cortés MD Hypertensive chronic kidney disease, unspecified, with chronic kidney disease stage I through stage IV, or unspecified Social History Tobacco Use Types Packs/Day Years Used Date Smoking Tobacco: Never Assessed Sex and Gender Information Value Date Recorded Sex Assigned at Not on file Legal Sex Male 9:54 AM EDT Gender Identity Not on file Sexual Orientation Not on file documented as of this encounter Plan of Treatment Upcoming Encounters Date Type Department Care Team (Late Contact Info) Description 09/09/2024 3:00 PM EDT Office Visit [facility] [address] [place] [address] Stevo Oakley MD [address] [facility] [address] [place] [address] documented as of this encounter Visit Diagnoses Diagnosis Hypertensive chronic kidney disease, unspecified, with chronic kidney disease stage I through stage IV, or unspecified documented in this encounter Care Teams Scanning Coordinator Relationship Specialty Start Date End Date Heather Kebede MD [facility] [place] [address] [place], [place] PCP - General Internal Medicine 06/16/20 documented as of this encounter
== END 2024-07-19 15:07 | disposition home or self-care (01) ==
PROVIDERS: PCP Internal Medicine; Visit Provider Nurse Practitioner Family
DX: R97.20 Elevated prostate specific antigen [PSA] (principal); R35.1 Nocturia; Z13.9 Encounter for screening, unspecified
CPT/HCPCS: 99204

== ENCOUNTER → 2024-07-19 14:25 | Outpatient (BNVA) | payer OTHER, SELFPAY | PROVIDERS: PCP Internal Medicine; Visit Provider Nurse Practitioner Family | DX: R97.20 Elevated prostate specific antigen [PSA] (principal); R35.1 Nocturia; R39.9 Unspecified symptoms and signs involving the genitourinary system | CPT/HCPCS: 81003 ==

== ENCOUNTER 2024-09-02 12:20 | Outpatient (REF) | payer OTHER, SELFPAY ==
[2024-09-02 13:17] LABS: MANUAL DIFF FLAG NO
[2024-09-02 13:28] LABS: Basophils Percent Auto 0.5 % (0-2); Eosinophils Absolute Auto 0.3 X10*3/uL (0.0-0.4); Eosinophils Percent Auto 5.3 % (0-4); Hematocrit 46.8 % (42.0-52.0); Imm Gran Abs Auto 0.01 X10*3/uL (0.00-0.03); Imm Gran Pct Auto 0.2 % (0.0-0.4); Lymphocytes Absolute Auto 0.8 X10*3/uL (1.2-4.9); Mean Corpuscular HGB Conc 34.2 g/dl (31.0-36.0); Mean Corpuscular Hemoglobin 30.8 pg (27.0-33.0); Mean Corpuscular Volume 90.2 fL (80.0-98.0); Mean Platelet Volume 10.6 fL (9.4-12.4); Monocytes Absolute Auto 0.6 X10*3/uL (0.1-1.2); Monocytes Percent Auto 9.3 % (2-11); Neutrophils Absolute Auto 4.6 x10*3/uL (2.0-8.3); Neutrophils Percent Auto 72.7 % (45-73); Platelet Count 162 X10*3/uL (160-400); Red Blood Count 5.19 X10*6/uL (4.60-5.80); Red Cell Distribution Width 12.9 % (11.0-16.0); White Blood Count 6.3 X10*3/uL (4.8-10.8)
[2024-09-02 13:45] LABS: Estimated Average Glucose 111 mg/dL; Hemoglobin A1c % 5.5 % (<6.0)
[2024-09-02 13:51] LABS: Anion Gap 11 (12-20); Blood Urea Nitrogen 20 mg/dL (9-16); Calcium 8.7 mg/dL (8.4-10.2); Carbon Dioxide 27 mmol/L (22-29); Chloride 106 mmol/L (96-108); Estimated Glomerular Filt Rate > 60; Glucose Random 112 mg/dL (60-115); Iron 77 mcg/dL (45-160); Percent Iron Saturation 29 % (15-50); Phosphorus 2.6 mg/dL (2.7-4.5); Potassium 4.1 mmol/L (3.3-5.1); Sodium 140 mmol/L (135-145); Total Iron Binding Capacity 270 mcg/dL (228-428); Unsaturated Iron Binding 193 ug/dL; Uric Acid 7.6 mg/dL (3.4-7.0)
[2024-09-02 13:52] LABS: Parathyroid Hormone Intact 101.9 pg/mL (8.7-77.1)
[2024-09-02 13:54] LABS: Appearance Urine Clear; Color Urine Yellow; Creatinine Urine 139.87 mg/dL; Glucose Urine UA Negative (Negative); Leukocyte Esterase Urine Trace (Negative); Microalbum/Creatinine Ratio Ur 6.4 ug/mg cr (<30); Nitrite Urine Negative (Negative); PH 7.5 (5.0-9.0); Protein/Creatinine Ratio, Ur 0.08 (<0.2); Specific Gravity - Urine 1.015 (1.005-1.025); Total Protein Urine Random 11 mg/dL (<12); UMIC TRIGGER UA YES; Urine Blood Negative (Negative); Urine Ketones Negative (Negative); Urine Protein Negative (Neg-Trace)
[2024-09-02 13:57] LABS: Bacteria Urine None Seen (None Seen); Hyaline Casts Urine 0-2 /LPF (0-2); Prostate Specific Antigen 3.36 ng/mL (<0.05-4.0); RBC Urine 0-2 /HPF (0-2); Squamous Epithelial Cell Urine 0-2 /HPF (0-2); WBC Urine 0-5 /HPF (0-5)
[2024-09-02 14:12] LABS: Ferritin 181 ng/mL (20-250); Vitamin D 25-OH Total 21.9 ng/mL (>30)
[2024-09-07 11:24] LABS: eGFR (Cystatin C) 50 (L)
[2024-09-07 11:25] LABS: Cystatin C 1.41 (H)
== END 2024-09-02 12:21 | disposition home or self-care (01) ==
LOC: HO.10HDL 12:20
PROVIDERS: Referring Provider Internal Medicine; Visit Provider Nurse Practitioner Family
DX: N18.31 Chronic kidney disease, stage 3a (principal); Z13.1 Encounter for screening for diabetes mellitus; Z12.5 Encounter for screening for malignant neoplasm of prostate; R97.20 Elevated prostate specific antigen [PSA]
CPT/HCPCS: 36415; 80048; 81001; 82043; 82306; 82570; 82610; 82728; 83036; 83540; 83735; 83970; 84100; 84153; 84156; 84550; 85025

== ENCOUNTER 2024-09-14 13:30 | Outpatient (REF) | payer OTHER, SELFPAY ==
--- NOTE | ~2024-09-14 | US_ITS ---
EXAMINATION: US RETROPERITONEUM HISTORY: R97.20 - Elevated prostate specific antigen [PSA] TECHNIQUE: Real-time grayscale ultrasound imaging of the kidneys was performed and images were reviewed. COMPARISON: There are no prior studies for comparison. FINDINGS: Right kidney: The right kidney measures 10.3 x 4.9 x 6.1 cm. Renal parenchymal echotexture and thickness are normal. There are no masses. There is no hydronephrosis or renal calculi. Left Kidney: The left kidney measures 10.3 x 5.4 x 4.9 cm. Renal parenchymal echotexture and thickness are normal. There are no masses. There is no hydronephrosis or renal calculi. The urinary bladder is unremarkable. Bilateral ureteral jets are identified. Before voiding, the urinary bladder measured 9.2 x 13.3 x 7.5 cm, for an estimated volume of 482 mL. After voiding, the urinary bladder measured 6.3 x 8.7 x 4.7 cm, for an estimated volume of 135 mL. The prostate measures 3.1 x 3.6 x 4.0 cm. Incidental note is made of splenomegaly. The spleen measures 15.5 cm in length. US/US retroperitoneal comp IMPRESSION: 1. Unremarkable renal ultrasound. Post void bladder residual of 135 mL. 2. The prostate is normal in size. 3. Splenomegaly. Electronically signed by: Marvin Flood MD 09/15/2024 07:51 AM EDT
--- OUTSIDE RECORDS SUMMARY | 2024-09-14 15:57 | XMS_ITS | Encounter Summary ---
Author Organization [facility] Address [address] [facility] [address] [place] [address] Phone Care Team Providers Care Cardiology Consultant Name Role Phone Heather Kebede MD Primary Care Provider [phone] Encounter Details Date Type Department Care Team (Late st Contact Info) Description 12/19/2020 Orders Only [facility] [address] [place] [address] Jd Cortés MD Hypertensive chronic kidney [...] Care Team (Late st Contact Info) Description 09/23/2024 Orders Only [facility] [address] [place] [address] Stevo Oakley MD [address] [facility] [address] [place] [id number] Stage 3a chronic kidney disease (HCC) 03/10/2025 2:15 PM EDT [facility] [address] [place] [address] Stevo Oakley MD [address] [facility] [address] [place] [address] documented as of this encounter Visit Diagnoses Diagnosis Hypertensive chronic kidney disease, unspecified, with chronic kidney disease stage I through stage IV, or unspecified Stage 3a chronic kidney disease (HCC) documented in this encounter Care Teams Cardiology Consultant Relationship Specialty Start Date End Date Heather Kebede MD [address] [place], [place] PCP - General Internal Medicine 06/16/20 documented as of this encounter
--- OUTSIDE RECORDS SUMMARY | 2024-09-14 15:57 | XMS_ITS | Patient Health Record ---
Author Organization [facility] Address [address] [place] [address] Care Team Providers Care Chain Machine Operator Name Role Phone Heather Kebede MD Primary Care Provider Yonny Galvez Jr Unavailable [phone] Reason For Referral No Information Medications Medication SIG (Take, Route, Frequency, Duration) Notes [...] MO UTH DAILY Oral for 30 Active Immunizations Vaccine Route Administration Date Status Comme nts Influenza Unknown 03/16/2021 Administered Social History Tobacco Use: Social History Observation Description Date Details (start date - stop date) Never Smoker NA - NA Tobacco Use/Smoking Question Answer Notes Patient is [...] drinks (0 point) Points 0 Interpretation Negative Problems Problem Type SNOMED Code ICD Code Onset Dates Problem Status W/U Status Risk Notes Problem [id number] Colon cancer screening (Z12.11) Active confirmed Problem 92768560201117412 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 (Z79.899) Active confirmed Plan Of Treatment Future Test Test Name Order Date COLONOSCOPY 09/06/2021 Insurance Providers Payer Name Payer Address Payer Phone Subscriber Number Group Number Insured Name Patient Relationship to Insured Coverage Start Date Coverage End Date [employer] [address] [place] [address] [id number] MICHAEL LAW Self - patient is the insured Medical (General) History Medical History History ICD Code Nonischemic cardiomyopathy hypertension Biventricular congestive heart failure CKD STAGE III elevated BMI JOYCELYN Surgical History Surgery Date(Month/Year) tonsillectomy
--- OUTSIDE RECORDS SUMMARY | 2024-09-14 15:57 | XMS_ITS | Encounter Summary ---
Author Organization [facility] Address [address] [address] Phone Care Team Providers Care Wood Gluer Name Role Phone Heather Kebede MD Primary Care Provider [phone] Reason for Visit * Reason Comments Stage 3a chronic kidney disease ( Encounter Details Date Type Department Care Team ([facility] st Contact Info) Description 09/09/2024 3:00 PM EDT Office Visit [facility] [address] [place] [address] Stevo Oakley MD [address] [address] Stage 3a chronic kidney disease (HCC) (Primary Dx); Essential (primary) hypertension Social History Tobacco Use Types Packs/Day Years Used Date Smoking Tobacco: Never Smokeless Tobacco: Never Alcohol Use Standard Drinks/Week Comments Yes 0 (1 standard drink = 0.6 oz pur e alcohol) socially Sex and Gender Information Value Date Recorded Sex Assigned at Not on file Legal Sex Male 9:54 AM EDT Gender Identity Not on file Sexual Orientation Not on file documented as of this encounter Last Filed Vital Signs Vital Sign Reading Time Taken Comments Blood Pressure 142/90 09/09/2024 3:17 PM EDT Pulse 88 09/09/2024 3:17 PM EDT Temperature - - Respiratory Rate - - Oxygen Saturation 99% 09/09/2024 3:17 PM EDT Inhaled Oxygen Concentration - - Weight 105 kg (230 lb 9.6 oz) 09/09/2024 3:17 PM EDT Height - - Body Mass Index 40.85 04/20/2021 2:02 PM EDT documented in this encounter Progress Notes * Stevo Oakley MD - 09/09/2024 3:00 PM EDT Images from the original note were not included. Patient Name: Antoni Reina, Male Date of : 1970, 54 y.o. Date: 09/09/2024 History of Present Illness Antoni Reina is a 54 y.o. 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 Antoni snores at night- however doesnot think he will tolerate cpap No dyspnea at rest or exertion H/o nasal allergies and totally blocked nostrils Today - Past leg edema, now improved The following portions of the patient's chart were reviewed in this encounter and updated as appropriate: Allergies Meds Problems Med Hx Surg Hx Fam Hx EMR: Past Medical History: Diagnosis Date Acute combined systolic and diastolic heart failure (HCC) Acute kidney failure (HCC) Essential hypertension Ischemic cardiomyopathy Review of Systems Constitutional: Negative for chills and fever. Respiratory: Negative for cough and shortness of breath. Cardiovascular: Negative for chest pain, palpitations and leg swelling. Gastrointestinal: Negative for abdominal pain, nausea and vomiting. Genitourinary: Negative for dysuria, frequency, hematuria and urgency. Medication List Current Outpatient Medications Medication Sig Dispense Refill amLODIPine (NORVASC) 10 MG tablet Take 1 tablet by mouth 1 (one) time each day carvedilol (COREG) 25 MG tablet Take 1 tablet (25 mg total) by mouth twice a day 60 tablet 2 cholecalciferol (VITAMIN D-3) 250 MCG (43606 UT) capsule Take 1 capsule (10,000 Units total) by mouth every 7 (seven) days 12 capsule 1 hydrALAZINE 100 MG tablet Take 100 mg by mouth 3 times a day lisinopril 20 MG tablet Take 1 tablet by mouth 1 (one) time each day triamcinolone (KENALOG) 0.5 % cream 2 (two) times a day APPLY TOPICALLY TO THE AFFECTED AREA TWICE DAILY No current facility-administered medications for this visit. Allergy List Allergies Allergen Reactions Shellfish Allergy Physical Exam BP 142/90 (BP Location: Left upper arm, Patient Position: Sitting, BP Cuff Size: Adult) Pulse 88 Wt 230 lb 9.6 oz (105 kg) SpO2 99% BMI 40.85 kg/m?? Vitals reviewed. Constitutional: He is oriented to person, place, and time. No distress. Cardiovascular: Normal rate, regular rhythm and normal heart sounds. He exhibits no edema. Pulmonary/Chest: Effort normal and breath sounds normal. No respiratory distress. Abdominal: Soft. There is no abdominal tenderness. Musculoskeletal: Normal range of motion. Neurological: He is alert and oriented to person, place, and time. Skin: Skin is warm and dry. Labs Chemistry Lab Units 03/18/24 0000 09/22/23 0000 12/03/22 1350 SODIUM 140 140 140 POTASSIUM 4.5 3.6 3.5 CO2 mmol/L 28 31 26 BUN mg/dL 17 16 21* CREATININE mg/dL 1.26 1.37* 1.33 CHLORIDE 106.0 102.0 104 ALBUMIN g/dL -- 4.3 -- EGFRNAFR 60 -- -- EGFR -- -- 56 Bone Mineral Lab Units 03/18/24 0000 09/22/23 0000 12/03/22 1350 CALCIUM mg/dL 9.0 8.7 8.4 PHOSPHORUS 3.0 2.6 -- Urine Lab Units 12/03/22 1519 PROT/CREAT RATIO UR TNP Assessment & Plan 1. Stage 3a chronic kidney disease (HCC) 2. Essential (primary) hypertension CKD 3a. BL cr of ~1.3- 1.1 without significant proteinuria in a setting on long standing HTN ,Obesity and Heart failure Renal function is stable HTN- BP Well controlled- prior visit - stopped torsemide as his EF is wnl , stopped imdur as no h/ocad and cath in 2020 wnl , stopped hydralazine Cont amlodipne 10mg, coreg 25mg bid and Lisinopril 20mg daily Possible obstructive sleep apnea, Needs sleep evaluation to r/o JOYCELYN Sleep hygiene is poor. He works night shifts and has irregular sleeping habits- refusing to consider CPAP Discussed shankar loss- Willing to discuss wt loss options in next visit with dr. Kebede Recommend taking an [id number] vitamin D supplement Orders Placed This Encounter Protein, Total, Random Urine w/Creatinine (Protein/Creat Ratio) Uric Acid Ferritin Iron Panel (Fe, TIBC, TSAT) Hemoglobin A1c CBC and Differential Basic Metabolic Panel Urinalysis with microscopic Urine Albumin / Creatinine Ratio Vitamin D 25 Hydroxy PTH, Intact Magnesium Phosphorus Return in about 6 months (around 03/12/2025). Stevo Oakley MD documented in this encounter Plan of Treatment Upcoming Encounters Date Type Department Care Team (Late st Contact Info) Description 09/23/2024 Orders Only [facility] [address] [place] [address] Stevo Oakley MD [address] [address] Stage 3a chronic kidney disease (HCC) 03/10/2025 2:15 PM EDT Office Visit [facility] [address] [place] [address] Stevo Oakley MD [address] [address] Scheduled Orders Name Type Priority Associated Diagnoses Orde r Schedule Protein, Total, Random Urine w/Creatinine (Protein/Creat Ratio) Lab Routine Stage 3a chronic kidney disease (HCC) Essential (primary) hypertension Expected: 03/12/2025 (Approximate), Expires: 10/10/2025 Uric Acid Lab Routine Stage 3a chronic kidney disease (HCC) Essential (primary) hypertension Expected: 03/12/2025 (Approximate), Expires: 10/10/2025 Ferritin Lab Routine Stage 3a chronic kidney disease (HCC) Essential (primary) hypertension Expected: 03/12/2025 (Approximate), Expires: 10/10/2025 Iron Panel (Fe, TIBC, TSAT) Lab Routine Stage 3a chronic kidney disease (HCC) Essential (primary) hypertension Expected: 03/12/2025 (Approximate), Expires: 10/10/2025 Hemoglobin A1c Lab Routine Stage 3a chronic kidney disease (HCC) Essential (primary) hypertension Expected: 03/12/2025 (Approximate), Expires: 10/10/2025 CBC and Differential Lab Routine Stage 3a chronic kidney disease (HCC) Essential (primary) hypertension Expected: 03/12/2025 (Approximate), Expires: 10/10/2025 Basic Metabolic Panel Lab Routine Stage 3a chronic kidney disease (HCC) Essential (primary) hypertension Expected: 03/12/2025 (Approximate), Expires: 10/10/2025 Urinalysis with microscopic Lab Routine Stage 3a chronic kidney disease (HCC) Essential (primary) hypertension Expected: 03/12/2025 (Approximate), Expires: 10/10/2025 Urine Albumin / Creatinine Ratio Lab Routine Stage 3a chronic kidney disease (HCC) Essential (primary) hypertension Expected: 03/12/2025 (Approximate), Expires: 10/10/2025 Vitamin D 25 Hydroxy Lab Routine Stage 3a chronic kidney disease (HCC) Essential (primary) hypertension Expected: 03/12/2025 (Approximate), Expires: 10/10/2025 PTH, Intact Lab Routine Stage 3a chronic kidney disease (HCC) Essential (primary) hypertension Expected: 03/12/2025 (Approximate), Expires: 10/10/2025 Magnesium Lab Routine Stage 3a chronic kidney disease (HCC) Essential (primary) hypertension Expected: 03/12/2025 (Approximate), Expires: 10/10/2025 Phosphorus Lab Routine Stage 3a chronic kidney disease (HCC) Essential (primary) hypertension Expected: 03/12/2025 (Approximate), Expires: 10/10/2025 documented as of this encounter Visit Diagnoses Diagnosis Stage 3a chronic kidney disease (HCC)- Primary Essential (primary) hypertension Stage 3a chronic kidney disease (HCC) documented in this encounter Care Teams Wood Gluer Relationship Specialty Start Date End Date Heather Kebede MD [address] [place], [place] PCP - General Internal Medicine 06/16/20 documented as of this encounter
--- OUTSIDE RECORDS SUMMARY | 2024-09-14 15:57 | XMS_ITS | Clinical Summary ---
Author Organization [facility] [address] [place] [address] Phone Care Team Providers Care Wooden Shade Hardware Installer Name Role Phone Heather Kebede MD Primary Care Provider Allergies Active Allergy Reactions Criticality Noted Date [...] 3 Active cholecalciferol (VITAMIN D-3) 250 MCG (18145 UT) capsule Take 1 capsule (10,000 Units total) by mouth every 7 (seven) days 12 capsule 1 4 09/22/19 25 Active Active Problems Problem Noted Date Diagnosed Date Long-term current use of drug therapy 01/22/2023 01/22/2023 Screening for malignant neoplasm of colon 202201/22/2023 Essential (primary) hypertension 04/19/2021 Encounters Date Type Department Care Team Description 09/09/2024 3:00 PM EDT Office Visit [facility] [address] [place] [address] Stevo Oakley MD Stage 3a chronic kidney disease (HCC) (Primary Dx); Essential (primary) hypertension from Last 3 Months Family History Medical History Relation Comments Hypertension [...] 9.6 oz) 09/09/2024 3:17 PM EDT Height 160 cm (5' 3 ) 04/20/2021 2:02 PM EDT Body Mass Index 40.85 04/20/2021 2:02 PM EDT Plan of Treatment Upcoming Encounters Date Type Department Care Team (Late st Contact Info) Description 09/23/2024 Orders Only [facility] [address] [place] [address] Stevo Oakley MD [address] [address] Stage 3a chronic kidney disease (HCC) 03/10/2025 2:15 PM EDT Office Visit [facility] [address] [place] [address] Stevo Oakley MD [address] [address] Health Maintenance Due Date Last Done Comments Pneumococcal Vaccine: Pediat rics (0 to 5 Years) and At-Risk Patients (6 to 64 Years) (1 of 2 - PCV) 1975 Hepatitis B Vaccine (1 of 3 - 19+ 3-dose series) 03/28 Colorectal Cancer Screening: Annual FOBT 2018 Colorectal Cancer Screening: Colonoscopy 2018 Colorectal Cancer Screening: Sigmoidoscopy 2018 Influenza Vaccine (#1) 2024 Insurance [facility] Care Teams Wooden Shade Hardware Installer Relationship Specialty Start Date End Date Heather Kebede MD [facility] [address] [place], [place] PCP - General Internal Medicine 06/16/20
== END 2024-09-14 13:31 | disposition home or self-care (01) ==
LOC: HO.US 13:30
PROVIDERS: PCP Internal Medicine; Visit Provider Nurse Practitioner Family
DX: R97.20 Elevated prostate specific antigen [PSA] (principal); R35.1 Nocturia
CPT/HCPCS: 76770

== ENCOUNTER → 2024-09-14 13:32 | Outpatient (BNV) | payer OTHER, SELFPAY | PROVIDERS: PCP Internal Medicine; Visit Provider Radiology Diagnostic Radiology | DX: R97.20 Elevated prostate specific antigen [PSA] (principal) | CPT/HCPCS: 76770 ==

== ENCOUNTER 2024-09-29 14:31 | Outpatient (AMB) | payer OTHER, SELFPAY ==
--- NOTE | 2024-09-29 15:13 | A.OFFVIS_ITS ---
Intake Visit Reasons: 2m/US/PSA(set) Intake Note: Patient presents today for follow up on: elevated psa PSA: 3.36 Imaging Completed: 09/14/24 Urology Medications: tamsulosin Blood Thinner: none Crm Developer Required: No Accompanied by: Self / Same As Patient Allergies seafood Allergy (Verified 09/29/24 16:42) Angioedema Medication List - Last Reconciled 09/29/24 by SHAYE Albarran amlodipine 10 mg PO DAILY 90 days carvedilol 25 mg PO BID 90 days tamsulosin 0.4 mg PO BEDTIME 30 weeks triamcinolone acetonide 0.5% 1 appl topical BID HPI Comments Details: Antoni is a 54-year-old male patient of Dr. Kebede. He has a past medical history of obesity, obstructive sleep apnea, hypertension, and congestive heart failure. He presents to the office today for follow-up. Of note, patient was seen approximately 2 months ago as a new patient for an elevated PSA at which time a retroperitoneal ultrasound was ordered for further assessment evaluation and redraw of PSA was recommended. These results were reviewed and communicated with the patient today 10/08 bilateral kidneys are normal in thickness and echotexture. There are no renal masses, renal calculi, or hydronephrosis noted bilaterally. The urinary bladder is unremarkable. Prostate measures a proximally 23 mL with calcifications noted within the prostate per radiology report. PSAs are as follows 04/05 2.7, 03/07 2.5, 03/08 4.4, 06/07 3.7, 06/08 4.2 % free PSA 12%., 09/07 3.4 We discussed labile PSA as well as decrease in PSA over the last 3 months. We discussed potential causes of elevated PSA as well as further treatment options and risks and benefits of these treatment options. When asked he is unsure of his family history of prostate cancer. During last office visit patient had also reported episodes of nocturia however he has a longstanding history of obstructive sleep apnea with noncompliance and CPAP machine. We did discussed correlation of sleep apnea and nocturia. He was started on Flomax and feels this is been helpful. In office urinalysis results reviewed with the patient today. He denies urinary urgency, urinary frequency, incontinence, hematuria, dysuria, foul smelling urine, changes to urinary stream, flank pain, fever, and or chills. ANUPAM offered however deferred. He otherwise offers no other issues or concerns at this time. Discussion Notes During today's consultation, we reviewed the ultrasound results, which demonstrated no abnormalities in the kidneys or bladder and revealed a prostate of normal size. We discussed the implications of the elevated PSA levels, noting that the initial measurement was 4+ and reduced to 3.4 in August, which remains at the higher end of normal. I emphasized the importance of close monitoring due to the increased PSA. I also discussed further treatment options and risks and benefits of these treatment options such as MRI of the prostate and or surveillance monitoring. I explained the necessity of reassessing the PSA every four months unless the value decreases significantly, potentially allowing for yearly monitoring. We discussed the potential causes of elevated PSA, including benign prostatic hyperplasia, dietary impacts, prostatitis, and prostate cancer, and ensured understanding that these do not necessarily indicate malignancy. The patient expressed understanding of the plan and voiced no immediate questions regarding management. Plan This schedule will help ensure any potential developments are identified promptly. The patient understands the reasons for regular monitoring and the possible benign or malignant etiologies of an elevated PSA. Current management is satisfactory; thus, no changes in medication are necessary. The patient will obtain PSA labs approximately two weeks before their next appointment. Continued education on influences of elevated PSA will be provided as needed. Patient consent to the plan was confirmed without queries about the outlined strategy. [facility] Medical History Obesity JOYCELYN (obstructive sleep apnea) Hypertension Congestive heart failure Surgical History History of tonsillectomy Family History Maternal Grandfather Lung cancer Paternal Grandfather Lung cancer Paternal Uncle Lung cancer Other Drug overdose Social History Housing: Apartment Alcohol intake: current Comment: 2x a year 1-2 glasses Patient Tobacco Use Status: Former Tobacco user Tobacco use type: Cigarette Years Smoked: quit 20 years old cigar smoking 01/2023 e-Cigarette/Vaping Use: Never Used Second Hand Smoke Exposure: No service: No Current occupational status: employed Current occupational exposures/hazards: No Cognitive needs: No Hearing needs: No Vision needs: Yes Review of Systems Const All systems reviewed & are unremarkable except as noted in HPI and below Eyes Reports no additional complaints ENT Reports no additional complaints Card Reports as per HPI Resp Reports as per HPI GI Reports no additional complaints Reports as per HPI Musc Reports no additional complaints Neuro Reports no additional complaints Psych Reports no additional complaints Endo Reports no additional complaints Jabier/Lymph Reports no additional complaints Aller/Immun Reports no additional complaints Physical Exam Const General: cooperative, healthy appearing, comfortable, no acute distress, well developed, alert and awake Nutritional Appearance: overweight Orientation/consciousness: patient oriented x3 Limitations: no limitations HEENT Head: Yes normal to inspection, Yes normocephalic and Yes atraumatic Ears: hearing grossly normal bilaterally Neck Neck: Yes normal visual inspection and Yes trachea midline Chest Chest palpation & inspection: normal inspection of the chest Resp Effort & Inspection: normal respiratory effort and able to speak in complete sentences Cardio Rate: regular rate GI Inspection: Yes normal to inspection General: Yes no CVA tenderness Back/Spine/Pelvis Back: no CVA tenderness Skin General skin exam: no rashes or lesions noted Neuro General: patient oriented x3 Extrem General: Yes normal to inspection Psych Appearance: grossly normal and well kempt Mental Status: mental status grossly normal Speech and movement: Normal speech and movement present and Clear speech present Affect: normal affect Attitude: cooperative Thought process: Normal thought process present Thought content: Normal thought content present Insight: Fair insight present (Psych) Judgement: Fair judgement present (Psych) Results AMB Urinalysis, Automated UA Leukoctes 0 Shanel/uL Last Edit by Richard Kinney on 09/29/24 15:45 UA Nitrite Last Edit by Richard Kinney on 09/29/24 15:45 UA Urobilinogen 0.2 mg/dL Last Edit by Richard Kinney on 09/29/24 15:45 UA Protein 15 mg/dL Last Edit by Richard Kinney on 09/29/24 15:45 UA pH 6.5 Last Edit by Richard Kinney on 09/29/24 15:45 UA Blood 0 Home/uL Last Edit by Richard Kinney on 09/29/24 15:45 UA Specific [employer] 1.015 Last Edit by Richard Kinney on 09/29/24 15:45 UA Ketone Last Edit by Richard Kinney on 09/29/24 15:45 UA Bilirubin 0 mg/dL Last Edit by Richard Kinney on 09/29/24 15:45 UA Glucose 0 mg/dL Last Edit by Richard Kinney on 09/29/24 15:45 Results Reviewed Results Reviewed: Laboratory Last Values Urine pH (Auto) 6.5 09/29/24 15:43 Specific [employer] (Auto) 1.015 09/29/24 15:43 Urine Protein (Auto) 15 mg/dL 09/29/24 15:43 Glucose (UA)(Auto) 0 mg/dL 09/29/24 15:43 Urine Blood (Auto) 0 Home/uL 09/29/24 15:43 Urine Bilirubin (Auto) 0 mg/dL 09/29/24 15:43 Urine Urobilinogen (Auto) 0.2 mg/dL 09/29/24 15:43 Leukocyte Esterase (Auto) 0 Shanel/uL 09/29/24 15:43 Date of Service: 09/14/24 Procedure(s): US retroperitoneal comp FINDINGS: Right kidney: The right kidney measures 10.3 x 4.9 x 6.1 cm. Renal parenchymal echotexture and thickness are normal. There are no masses. There is no hydronephrosis or renal calculi. Left Kidney: The left kidney measures 10.3 x 5.4 x 4.9 cm. Renal parenchymal echotexture and thickness are normal. There are no masses. There is no hydronephrosis or renal calculi. The urinary bladder is unremarkable. Bilateral ureteral jets are identified. Before voiding, the urinary bladder measured 9.2 x 13.3 x 7.5 cm, for an estimated volume of 482 mL. After voiding, the urinary bladder measured 6.3 x 8.7 x 4.7 cm, for an estimated volume of 135 mL. The prostate measures 3.1 x 3.6 x 4.0 cm. Incidental note is made of splenomegaly. The spleen measures 15.5 cm in length. IMPRESSION: 1. Unremarkable renal ultrasound. Post void bladder residual of 135 mL. 2. The prostate is normal in size. 3. Splenomegaly. Assessment & Plan Assessment & Plan (1) PSA elevation: Code(s): R97.20 - Elevated prostate specific antigen [PSA] Category: Medical Plan In office urinalysis results reviewed with the patient today; as noted above. Recent PSA results reviewed with the patient today; as noted above. Recent retroperitoneal ultrasound results reviewed with the patient today; as noted above. Continue Flomax as discussed and prescribed. We discussed importance of compliance in CPAP for improvement in nocturia as well as overall health and well-being. We discussed potential causes of elevated/labile PSA We discussed further treatment options and risks and benefits of the treatment options. Will continue with surveillance monitoring. Will obtain PSA in 4 months. Follow-up in 4 months with PSA and PVR; or sooner with any issues, concerns, and or questions. Orders: Orders PSA,Total (Free>4and<10) 4 Months R97.20 - Elevated prostate specific antigen [PSA] AMB Urinalysis Automated Today Z13.9 - Encounter for screening, unspecified Patient Instructions: The patient had an opportunity to ask questions regarding the treatment plan. All questions were answered. Physical exam, labs, and imaging were discussed and reviewed in detail. As well as risks, benefits, and discussion of treatment choices. No major barriers to understanding were identified. The patient expressed understanding and agreement with the above treatment plan. The patient was made aware they should contact our office by phone for worsening of their current condition, the appearance of new symptoms, or with any questions or concerns. Compliance is encouraged with any medications and follow up testing that is ordered. It is a privilege to be allowed the opportunity to participate in? your urological care.? Again, if you have any questions or concerns If you have any questions or concerns please do not hesitate to contact me. The office is [phone]. This note is constructed using voice recognition software. While every effort has been made to ensure accuracy examiner rating clerk errors may have been included. Yours sincerely, SALVADOR Albarran Coding Level of Care Code Est Pt Level 3 (62104) Diagnoses PSA elevation R97.20
--- OUTSIDE RECORDS SUMMARY | 2024-09-29 17:17 | XMS_ITS | Clinical Summary ---
Author Organization [facility] [address] [place] [address] Phone Care Team Providers Care Parking Enforcement Technician Name Role Phone Heather Kebede MD Primary Care Provider [phone] Allergies Active Allergy Reactions Criticality Noted Date [...] 3 Active cholecalciferol (VITAMIN D-3) 250 MCG (89690 UT) capsule Take 1 capsule (10,000 Units total) by mouth every 7 (seven) days 12 capsule 1 4 09/22/19 25 Active Problems Problem Noted Date Diagnosed Date Long-term current use of drug therapy 01/22/2023 01/22/2023 Screening for malignant neoplasm of colon 202201/22/2023 Essential (primary) hypertension 04/19/2021 Encounters Date Type Department Care Team Description 09/23/2024 Orders Only [facility] [address] [place] [phone] Stevo Oakley MD Stage 3a chronic kidney disease (HCC) 09/09/2024 3:00 PM EDT Office Visit [facility] [address] [place] [address] Stevo Oakley [...] Care Team (Late st Contact Info) Description 03/10/2025 2:15 PM EDT Office Visit [facility] [address] [place] [address] Stevo Oakley MD [address] [facility] [address] [place] [address] Health Maintenance Due Date Last Done Comments Hepatitis B Vaccine (1 of 3 - 19+ 3-dose series) 03/28 Pneumococcal Vaccine: 50+ Years (1 of 2 - PCV) 988 Colorectal Cancer Screening: Annual FOBT 2018 Colorectal Cancer Screening: Colonoscopy 2018 Colorectal Cancer Screening: Sigmoidoscopy 2018 Influenza Vaccine (Season Ended) 2025 Insurance [facility] Commercial [facility] Commercial Care Teams Parking Enforcement Technician Relationship Specialty Start Date End Date Heather Kebede MD [facility] [place] [address] [place], [place] PCP - General Internal Medicine 06/16/20
--- OUTSIDE RECORDS SUMMARY | 2024-09-29 17:17 | XMS_ITS | Encounter Summary ---
Author Organization [facility] [place] Address [address] [facility] [address] [place] [address] Phone Care Team Providers Care Hogshead Dumper Name Role Phone Heather Kebede MD Primary Care Provider [phone] Encounter Details Date Type Department Care Team (Late Contact Info) Description 12/19/2020 Orders Only [facility] [address] [place] [address] [...] Department Care Team (Late Contact Info) Description 03/10/2025 2:15 PM EDT Office Visit [facility] [address] [place] [address] Stevo Oakley MD 3556 [facility] [address] [place] [address] documented as of this encounter Visit Diagnoses Diagnosis Hypertensive chronic kidney disease, unspecified, with chronic kidney disease stage I through stage IV, or unspecified documented in this encounter Care Teams Hogshead Dumper Relationship Specialty Start Date End Date Heather Kebede MD [facility] [place] [address] [place], [place] PCP - General Internal Medicine 06/16/20 documented as of this encounter
--- OUTSIDE RECORDS SUMMARY | 2024-09-29 17:17 | XMS_ITS | Patient Health Record ---
Author Organization [facility] Address [address] [place] [address] Care Team Providers Care Monitor And Storage Bin Tender Name Role Phone Heather Kebede MD Primary Care Provider Yonny Galvez Jr Unavailable Reason For Referral No Information Medications Medication [...] Problem Status W/U Status Risk Notes Problem 808250075 Colon cancer screening (Z12.11) Active confirmed Problem [id number] senior living current use of diuretic (Z79.899) Active confirmed Plan Of Treatment Future Test Test Name Order Date COLONOSCOPY 09/06/2021 Insurance Providers Payer Name Payer Address Payer Phone Subscriber Number Group Number Insured Name Patient Relationship to Insured Coverage Start Date Coverage End Date [employer] [address] [place] [address] [id number] MICHAEL LAW Self - patient is the insured Medical (General) History Medical History History ICD Code Nonischemic cardiomyopathy hypertension Biventricular congestive heart failure CKD STAGE III elevated BMI JOYCELYN Surgical History Surgery Date(Month/Year) tonsillectomy
--- OUTSIDE RECORDS SUMMARY | 2024-09-29 17:17 | XMS_ITS | Encounter Summary ---
Author Organization [facility] Address [address] [address] Phone Care Team Providers Care Disk Recoater Name Role Phone Heather Kebede MD Primary Care Provider [phone] Encounter Details Date Type Department Care Team (Late st Contact Info) Description 09/23/2024 Orders Only [facility] [address] [place] [address] Stevo Oakley MD [address] [address] Stage 3a chronic kidney disease (HCC) Social History Tobacco Use Types Packs/Day Years [...] Visit [facility] [address] [place] [address] Stevo Oakley MD [address] [address] documented as of this encounter Visit Diagnoses Diagnosis Stage 3a chronic kidney disease (HCC) documented in this encounter Care Teams Disk Recoater Relationship Specialty Start Date End Date Heather Kebede MD [address] [place] PCP - General Internal Medicine 06/16/20 documented as of this encounter
== END 2024-09-29 15:38 | disposition home or self-care (01) ==
LOC: HO.HUSH 14:32
PROVIDERS: PCP Internal Medicine; Visit Provider Nurse Practitioner Family
DX: Z13.9 Encounter for screening, unspecified (principal); R97.20 Elevated prostate specific antigen [PSA]
CPT/HCPCS: 99213

== ENCOUNTER → 2024-09-29 14:31 | Outpatient (BNVA) | payer OTHER, SELFPAY | PROVIDERS: PCP Internal Medicine; Visit Provider Nurse Practitioner Family | DX: R97.20 Elevated prostate specific antigen [PSA] (principal); G47.33 Obstructive sleep apnea (adult) (pediatric); I11.0 Hypertensive heart disease with heart failure; I50.9 Heart failure, unspecified | CPT/HCPCS: 81003 ==

== ENCOUNTER 2024-11-09 13:24 | Outpatient (AMB) | payer OTHER, SELFPAY ==
--- OUTSIDE RECORDS SUMMARY | 2024-11-09 13:30 | XMS_ITS | Clinical Summary ---
Author Organization [facility] [address] [place] [address] Phone Care Team Providers Care Architecture Consultant Name Role Phone Heather Kebede MD Primary Care Provider [phone] Allergies Active Allergy Reactions Criticality Noted Date [...] THE AFFECTED AREA TWICE DAILY 3 Active Active Problems Problem Noted Date Diagnosed Date Long-term current use of drug therapy 01/22/2023 01/22/2023 Screening for malignant neoplasm of colon 202201/22/2023 Essential (primary) hypertension 04/19/2021 Encounters Date Type Department Care Team Description 09/23/2024 Orders Only [facility] [address] [place] [phone] Stevo Oakley MD Stage 3a chronic kidney disease (HCC) 09/09/2024 3:00 PM EDT Office Visit [facility] [address] [place] [address] Stevo Oakley MD Stage 3a chronic kidney [...] Visit [facility] [address] [place] [address] Stevo Oakley MD [address] [facility] [address] [place] [phone] Health Maintenance Due Date Last Done Comments Hepatitis B Vaccine (1 of 3 - 19+ 3-dose series) 03/28 Pneumococcal Vaccine: 50+ Years (1 of 2 - PCV) 988 Colorectal Cancer Screening: Annual FOBT 2018 Colorectal Cancer Screening: Colonoscopy 2018 Colorectal Cancer Screening: Sigmoidoscopy 2018 Influenza Vaccine (Season Ended) 2025 [place] [id number] [facility] Commercial [facility] Commercial Care Teams Architecture Consultant Relationship Specialty Start Date End Date Heather Kebede MD [facility] [address] [place], [place] PCP - General Internal Medicine 06/16/20
[2024-11-09 13:32] VITALS: BP 118/70; PULSE 67; O2SAT 96; BMI 40.7
--- NOTE | 2024-11-09 13:32 | A.OFFPC_ITS ---
Vital Signs 11/09/24 13:32 Height 5 ft 3 in Weight 230 lb BMI 40.7 BP 118/70 Blood Pressure Location Lt brachial Position Sitting Pulse 67 Pulse Source Pulse Oximeter Pulse Oximetry (%) 96 Oxygen Delivery Method Room Air Intake Visit Reasons: Hypertension Allergies seafood Allergy (Verified 11/09/24 13:32) Angioedema Medication List - Last Reconciled 11/09/24 by Heather Kebede MD amlodipine 10 mg PO DAILY 90 days carvedilol 25 mg PO BID 90 days tamsulosin 0.4 mg PO BEDTIME 30 weeks triamcinolone acetonide 0.5% 1 appl topical BID Tobacco use date assessed: 11/09/24 Dental Screening Dental Screen Date: 11/09/24 Did you have a dental visit in the last 12 months?: Yes Did you have a dental problem in the last 6 months where you did not have access to dental care?: No Was dental information given to patient?: Patient has dentist [facility] Medical History Obesity JOYCELYN (obstructive sleep apnea) Hypertension Congestive heart failure Surgical History History of tonsillectomy Family History Maternal Grandfather Lung cancer Paternal Grandfather Lung cancer Paternal Uncle Lung cancer Other Drug overdose Social History Housing: Apartment Alcohol intake: current Comment: 2x a year 1-2 glasses Patient Tobacco Use Status: Former Tobacco user Tobacco use type: Cigarette Years Smoked: quit 19 years old cigar smoking 01/2023 e-Cigarette/Vaping Use: Never Used Second Hand Smoke Exposure: No service: No Current occupational status: employed Current occupational exposures/hazards: No Cognitive needs: No Hearing needs: No Vision needs: Yes Questionnaire PHQ-9 Over the last 2 weeks, how often have you been bothered by any of the following problems? 1. Little interest or pleasure in doing things: not at all 2. Feeling down, depressed, or hopeless: not at all 3. Trouble falling or staying asleep, or sleeping too much: nearly every day Source: Developed by Drs. Marvin Zayas, Duane Nicholson and colleagues, with an educational christopher from [employer]. Thrive Questionnaire Date Thrive assessed: 11/09/24 I am a: Patient What is your living situation today?: I have a steady place to live Within the past 12 months, did the food you bought not last and you didn't have the money to get more?: Never true Within the past 12 months, did you worry whether your food would run out before you got money to buy more?: Never true Do you have trouble paying for medicines?: No Do you have trouble getting transportation to medical appointments?: No Do you have trouble paying your heating and electricity bill?: No Do you have trouble taking care of your child, family member or friend?: No Do you have trouble with day-to-day activities such as bathing, preparing meals, shopping, managing finances, etc.?: No Are you currently unemployed and looking for a job?: No Are you interested in more education?: No Currently or been in a relationship where the following occur: No concerns reported THRIVE Score: 0 AUDIT C Alcohol Use Questionnaire (AUDIT-C) 1. How often do you have a drink containing alcohol?: Never 3. How often do you have six or more drinks on one occasion?: Never Total Score: 0 SHON-7 AMB Questionnaire SHON-7 Date SHON - 7 assessed: 11/09/24 Feeling nervous, anxious, or on edge: 0 = Not at all Not being able to stop or control worryin = Not at all Worrying too much about different things: 0 = Not at all Trouble relaxin = Not at all Being so restless that it is hard to sit still: 0 = Not at all Becoming easily annoyed or irritable: 0 = Not at all Feeling afraid as if something awful might happen: 0 = Not at all Total SHON-7 score (0-4 normal; 5-9 mild; 10-14 moderate; 15-21 severe): 0 Source: Developed by Drs. Marvin Zayas, Duane Nicholson and colleagues, with an educational christopher from [employer]. Physical exam (Primary Care) Vital Signs: Last Vital Signs Pulse 67 11/09/24 13:32 BP 118/70 11/09/24 13:32 Pulse Ox 96 11/09/24 13:32 Oxygen Delivery Method Room Air 11/09/24 13:32 BMI result Body Mass Index 40.7 Tobacco/Smoking Status: Tobacco use Status Tobacco use date assessed 11/09/24 11/09/24 13:36 Patient Tobacco Use Status Former Tobacco user 11/09/24 13:36 Tobacco use type Cigarette 11/09/24 13:36 e-Cigarette/Vaping Use Never Used 11/09/24 13:36 Thrive Assessment: Date of Thrive Assessment Date Thrive assessed 11/09/24 11/09/24 13:36 Currently or been in a relationship where the following occur: No concerns reported Const General: alert; No acute distress Eyes Conjunctivae: conjunctivae normal Resp Auscultation: clear to auscultation bilaterally Cardio Rate: regular rate Rhythm: regular rhythm GI Inspection: Yes normal to inspection Extrem General: Yes normal to inspection and No edema Coding Level of Care Code Est Pt Level 4 (25719) Complex EM visit Add On G2211 Diagnoses Morbidly obese E66.01 PSA elevation R97.20 JOYCELYN (obstructive sleep apnea) G47.33 Impaired fasting blood sugar R73.01 Stage 3a chronic kidney disease N18.31 Chronic kidney disease stage 3 subtype: stage 3a (GFR 45-59) Primary hypertension I10 Hypertension type: primary hypertension Assessment & Plan Assessment & Plan (1) Morbidly obese: Code(s): E66.01 - Morbid (severe) obesity due to excess calories Category: Medical Plan: Diet and exercise (2) PSA elevation: Code(s): R97.20 - Elevated prostate specific antigen [PSA] Category: Medical Plan: Patient is being followed up by Urology (3) JOYCELNY (obstructive sleep apnea): Comment: He has definite obstructive sleep apnea, mild to moderately severe, with mild nocturnal hypoxemia. I explained to the patient that, best option is to start on CPAP therapy. HOWEVER HE WAS NOT WILLING TO START THE CPAP THERAPY . HE IS INSISTING ON GIVING HIM MORE TIME. HE PLANS TO LOSE WEIGHT, ADVISE THAT HE SHOULD CONTINUE TO LOSE WEIGHT. SLEEP HYGIENE EXPLAINED. HE WILL CALL US TO BE SEEN FOR FOLLOW-UP IF NEEDED. IN THE MEANTIME HE SHOULD CONTINUE TO FOLLOW-UP REGULARLY BY HIS PCP AND ALSO SHE HAS BY CARDIOLOGY SERVICE Code(s): G47.33 - Obstructive sleep apnea (adult) (pediatric) Category: Medical Plan: Discussed about sleep apnea and CPAP therapy but could not tolerate CPAP (4) Impaired fasting blood sugar: Code(s): R73.01 - Impaired fasting glucose Category: Medical Plan: Decrease the amount of carbohydrate intake, pasta, bread, rice and potatoes are all sugar and that is aside from all the sweet stuff, remember that fruits are good but they are Sweet also. (5) Chronic kidney disease, stage 3: Code(s): N18.30 - Chronic kidney disease, stage 3 unspecified Category: Medical Qualifiers: Chronic kidney disease stage 3 subtype: stage 3a (GFR 45-59) Qualified Code(s): N18.31 - Chronic kidney disease, stage 3a Plan: Keep well hydrated continue to control blood pressure continue to control cholesterol. (6) Hypertension: Code(s): I10 - Essential (primary) hypertension Category: Medical Qualifiers: Hypertension type: primary hypertension Qualified Code(s): I10 - Essential (primary) hypertension Plan: Continue with blood pressure medication. Decrease salt intake and exercise patient follows up with Nephrology on amlodipine 10 mg once a day carvedilol 25 mg twice a day Plan History of Present Illness The patient is a 54-year-old male presenting for a follow-up appointment concerning the management of chronic conditions, including congestive heart failure, hypertension, non-ischemic cardiomyopathy, chronic kidney disease, pulmonary obstructive sleep apnea, diabetes mellitus, and hyperlipidemia. His history includes a regular cardiology work-up where a November echocardiogram showed normal cardiac function. During this visit, emphasis was placed on maintaining optimal management of these conditions, given the reported blood sugar of 412 mg/dL, an LDL of 67 mg/dL, and a rising PSA of 3.36. The patient has been advised to discontinue cortisone, Imdur, and hydralazine, while continuing on medications such as amlodipine, carvedilol, and lisinopril for hypertensive control. There is a noted difficulty in tolerating CPAP for sleep apnea, and ongoing nephrology assessment following the diagnosis of chronic kidney disease, stage IIIA without significant proteinuria. Health Maintenance - Regular monitoring and management of blood pressure, cholesterol levels, and kidney function - Follow-up PSA evaluation with urology - Ongoing discussions for the management of sleep apnea - Sustained hydration and diabetic monitoring for glycemic control Social History - Employment: Works at a [employer] - Education: Attending school - Exercise: Details not explicitly discussed - Functional Status: Active work schedule - Substance Use: Not discussed - Weight: Recent weight gain reported Review of Systems - Cardiovascular: Reports history of congestive heart failure and hypertension - Renal: Reports diagnosis of chronic kidney disease Stage IIIA - Respiratory: Reports obstructive sleep apnea; intolerance to CPAP therapy - Endocrine: Reports elevated blood sugar - Genitourinary: Reports elevated PSA - Musculoskeletal: Denies discomfort - General: Reports recent weight gain Physical Exam Results - Labs: Normal blood count, normal electrolytes, blood glucose 412 mg/dL, LDL 67 mg/dL, PSA 3.36 ng/mL, no vitamin D levels reported - Imaging/Echo: Echocardiogram normal as of May 05 Plan The patient has been advised to continue with amlodipine and carvedilol for managing hypertension. Chronic kidney disease will be followed up with nephrology. Due to CPAP intolerance, alternative sleep apnea solutions are considered. For diabetes, the patient is encouraged to keep well-hydrated and manage the blood glucose levels actively. Cholesterol levels remain controlled with an LDL of 67 mg/dL. Further evaluation by urology for the elevated PSA level and potential neurology involvement was discussed. Weight management is emphasized through lifestyle changes. Follow-up appointments are scheduled to monitor and adjust care as needed. Patient was informed and verbally consented to the use of an ambient scribe for clinic note documentation during this visit. Discussion Notes In today's visit, I discussed the management options for the patient's various chronic conditions. We emphasized the necessity of adhering to current medication regimens and explained the reasoning for modifications made, including the discontinuation of cortisone, Imdur, and hydralazine, while continuing on amlodipine and carvedilol. Given the patient's elevated blood sugar levels, discussions focused on maintaining hydration and monitoring the condition closely. The challenges with CPAP in managing sleep apnea and potential alternatives were reviewed. We discussed following up with urology regarding the elevated PSA and considering potential neurology assessment. Plans for weight management were outlined, with the goal of reducing the need for additional medication. I highlighted the specific importance of regular follow- ups and blood work to ensure optimal health. Patient Instructions - Continue taking amlodipine 10 mg once daily and carvedilol 25 mg twice daily - Maintain hydration and regularly monitor blood glucose levels - Follow up with urology to address elevated PSA levels - Attempt alternative sleep apnea management options due to CPAP intolerance - Focus on weight management through lifestyle changes - Return for scheduled follow-up appointments - Report any significant changes in symptoms or new health concerns promptly Medications: New tirzepatide (Mounjaro) for 4 weeks 2.5 mg (0.5 mL) subcut QWEEK 2 mL 3RF E66.01 - Morbid (severe) obesity due to excess calories
== END 2024-11-09 14:07 | disposition home or self-care (01) ==
LOC: HO.HMCH 13:25
PROVIDERS: PCP Internal Medicine; Visit Provider Internal Medicine
DX: I12.9 Hypertensive chronic kidney disease with stage 1 through stage 4 chronic kidney disease, or unspecified chronic kidney disease (principal); E66.01 Morbid (severe) obesity due to excess calories; N18.31 Chronic kidney disease, stage 3a; Z68.41 Body mass index [BMI] 40.0-44.9, adult; R97.20 Elevated prostate specific antigen [PSA]; G47.33 Obstructive sleep apnea (adult) (pediatric); R73.01 Impaired fasting glucose

== ENCOUNTER → 2024-11-09 13:24 | Outpatient (BNVA) | payer OTHER, SELFPAY | PROVIDERS: PCP Internal Medicine; Visit Provider Internal Medicine | DX: Z13.89 Encounter for screening for other disorder (principal) ==

== ENCOUNTER 2025-02-10 12:21 | Outpatient (REF) | payer OTHER, SELFPAY ==
--- OUTSIDE RECORDS SUMMARY | 2025-02-10 13:13 | XMS_ITS | Clinical Summary ---
Author Organization [facility] [place] Address [address] [place] [address] Phone Care Team Providers Care Director Of Volunteer Services Name Role Phone Heather Kebede MD Primary Care Provider [phone] Allergies Active Allergy Reactions Criticality Noted Date [...] Visit [facility] [address] [place] [address] Stevo Oakley MD [address] [address] 03/12/2025 Orders Only [facility] [address] [place] [address] Stevo Oakley MD [address] [address] Stage 3a chronic kidney disease (HCC); Essential (primary) hypertension Health Maintenance Due Date Last Done Comments Hepatitis B Vaccine (1 of 3 - 19+ 3-dose series) 03/28 Pneumococcal Vaccine: 50+ Years (1 of 2 - PCV) 988 Colorectal Cancer Screening: Annual FOBT 2018 Colorectal Cancer Screening: Colonoscopy 2018 Colorectal Cancer Screening: Sigmoidoscopy 2018 Influenza Vaccine (#1) [address] [place] [id number] [facility] Commercial [address] [facility] [place] [address] [facility] Commercial Care Teams Director Of Volunteer Services Relationship Specialty Start Date End Date Heather Kebede MD [address] [place], [place] PCP - General Internal Medicine 06/16/20
--- OUTSIDE RECORDS SUMMARY | 2025-02-10 13:13 | XMS_ITS | Patient Health Record ---
Author Organization [facility] Address [address] [place] [address] Care Team Providers Care Licensed Psychologist Name Role Phone Heather Kebeed MD Primary Care Provider Yonny Galvez Jr Unavailable [phone] Reason For Referral No Information Medications Medication [...] Problem Status W/U Status Risk Notes Problem [id number] Colon cancer screening (Z12.11) Active confirmed Problem [id number] retirement current use of diuretic (Z79.899) Active confirmed Plan Of Treatment Future Test Test Name Order Date COLONOSCOPY 09/06/2021 Insurance Providers Payer Name Payer Address Payer Phone Subscriber Number Group Number Insured Name Patient Relationship to Insured Coverage Start Date Coverage End Date [employer] [address] [place] [phone] [id number] MICHAEL LAW Self - patient is the insured Medical (General) History Medical History History ICD Code Nonischemic cardiomyopathy hypertension Biventricular congestive heart failure CKD STAGE III elevated BMI JOYCELYN Surgical History Surgery Date(Month/Year) tonsillectomy
--- OUTSIDE RECORDS SUMMARY | 2025-02-10 13:13 | XMS_ITS | Encounter Summary ---
Author Organization [facility] [place] Address [address] [facility] [address] [place] [address] Phone Care Team Providers Care Finish Remover Name Role Phone Heather Kebede MD Primary Care Provider [phone] Encounter Details Date Type Department Care Team (Late st Contact Info) Description 12/19/2020 Orders Only [facility] [address] [place] [address] Jd Cortés [...] Office Visit [facility] [address] [place] [address] Stevo Oakley MD [address] [facility] [address] [place] [address] 03/12/2025 Orders Only [facility] [address] [place] [phone] Stevo Oakley MD [address]75 [facility] [address] [place] [address] Stage 3a chronic kidney disease (HCC); Essential (primary) hypertension documented as of this encounter Visit Diagnoses Diagnosis Hypertensive chronic kidney disease, unspecified, with chronic kidney disease stage I through stage IV, or unspecified Stage 3a chronic kidney disease (HCC) Essential (primary) hypertension documented in this encounter Care Teams Finish Remover Relationship Specialty Start Date End Date Heather Kebede MD [address] [place], [place] PCP - General Internal Medicine 06/16/20 documented as of this encounter
[2025-02-10 13:53] LABS: PSA,Total (Free>4and<10) 3.80 ng/mL (0.00-4.00)
== END 2025-02-10 12:22 | disposition home or self-care (01) ==
LOC: HO.LAB 12:21
PROVIDERS: PCP Internal Medicine; Visit Provider Nurse Practitioner Family
DX: R97.20 Elevated prostate specific antigen [PSA] (principal); Z12.5 Encounter for screening for malignant neoplasm of prostate
CPT/HCPCS: 36415; 84153

== ENCOUNTER 2025-02-22 15:21 | Outpatient (AMB) | payer OTHER, SELFPAY ==
--- NOTE | 2025-02-22 15:39 | A.OFFPC_ITS ---
Vital Signs 02/22/25 15:40 Height 5 ft 3 in Weight 233 lb BMI 41.3 BP 130/76 Blood Pressure Location Lt brachial Position Sitting Pulse 67 Pulse Source Pulse Oximeter Pulse Oximetry (%) 97 Oxygen Delivery Method Room Air Intake Visit Reasons: obesity, HTN,urinary retention Intake Note: Patient is here to follow up on Obesity HTN, Urinary retention. Top Edge Beveler Required: No Food Beverage Manager: Not Required per policy Accompanied by: Self / Same As Patient Allergies seafood Allergy (Verified 02/22/25 15:41) Angioedema Tobacco use date assessed: 02/22/25 Dental Screening Dental Screen Date: 02/22/25 Did you have a dental visit in the last 12 months?: No Did you have a dental problem in the last 6 months where you did not have access to dental care?: No Was dental information given to patient?: No [facility] Medical History Obesity JOYCELYN (obstructive sleep apnea) Hypertension Congestive heart failure Surgical History History of tonsillectomy Family History Maternal Grandfather Lung cancer Paternal Grandfather Lung cancer Paternal Uncle Lung cancer Other Drug overdose Social History Housing: Apartment Alcohol intake: current Comment: 2x a year 1-2 glasses Patient Tobacco Use Status: Former Tobacco user Tobacco use type: Cigarette Years Smoked: quit 19 years old cigar smoking 01/2023 e-Cigarette/Vaping Use: Never Used Second Hand Smoke Exposure: Yes service: No Current occupational status: employed Current occupational exposures/hazards: No Cognitive needs: No Hearing needs: No Vision needs: Yes Questionnaire PHQ-9 Over the last 2 weeks, how often have you been bothered by any of the following problems? 1. Little interest or pleasure in doing things: not at all 2. Feeling down, depressed, or hopeless: not at all 3. Trouble falling or staying asleep, or sleeping too much: nearly every day 4. Feeling tired or having little energy: more than half the days 5. Poor appetite or overeating: several days 6. Feeling bad about yourself - or that you are a failure or have let yourself or your family down: not at all 7. Trouble concentrating on things, such as reading the newspaper or watching television: not at all 8. Moving or speaking so slowly that other people could have noticed. Or the opposite - being so fidgety or restless that you have been moving around a lot more than usual: not at all 9. Thoughts that you would be better off or of hurting yourself in some way: not at all Total score: 6 38049 - PHQ-9 Billing: Yes Source: Developed by Drs. Marvin Zayas, Sophy Coats, Duane Cross and colleagues, with an educational christopher from [email or web address]. Thrive Questionnaire Date Thrive assessed: 02/22/25 I am a: Patient What is your living situation today?: I have a steady place to live Within the past 12 months, did the food you bought not last and you didn't have the money to get more?: Never true Within the past 12 months, did you worry whether your food would run out before you got money to buy more?: Never true Do you have trouble paying for medicines?: No Do you have trouble getting transportation to medical appointments?: No Do you have trouble paying your heating and electricity bill?: No Do you have trouble taking care of your child, family member or friend?: No Do you have trouble with day-to-day activities such as bathing, preparing meals, shopping, managing finances, etc.?: No Are you currently unemployed and looking for a job?: No Are you interested in more education?: No Currently or been in a relationship where the following occur: No concerns reported THRIVE Score: 0 AUDIT C Alcohol Use Questionnaire (AUDIT-C) 1. How often do you have a drink containing alcohol?: Never 3. How often do you have six or more drinks on one occasion?: Never Total Score: 0 SHON-7 AMB Questionnaire SHON-7 Date SHON - 7 assessed: 02/22/25 Feeling nervous, anxious, or on edge: 0 = Not at all Not being able to stop or control worryin = Not at all Worrying too much about different things: 0 = Not at all Trouble relaxin = Not at all Being so restless that it is hard to sit still: 0 = Not at all Becoming easily annoyed or irritable: 1 = Several days Feeling afraid as if something awful might happen: 0 = Not at all Total SHON-7 score (0-4 normal; 5-9 mild; 10-14 moderate; 15-21 severe): 1 Source: Developed by Drs. Marvin Zayas, Sophy Coats, Duane Cross and colleagues, with an educational christopher from [email or web address]. SHON-7 Assessment Billing SHON-7 Assessment Tool: SHON-7 Assessment 28603 Physical exam (Primary Care) Vital Signs: Last Vital Signs Pulse 67 02/22/25 15:40 BP 130/76 02/22/25 15:40 Pulse Ox 97 02/22/25 15:40 Oxygen Delivery Method Room Air 02/22/25 15:40 BMI result Body Mass Index 41.3 Tobacco/Smoking Status: Tobacco use Status Tobacco use date assessed 02/22/25 02/22/25 15:46 Patient Tobacco Use Status Former Tobacco user 02/22/25 15:46 Tobacco use type Cigarette 02/22/25 15:46 e-Cigarette/Vaping Use Never Used 02/22/25 15:46 PHQ-9: PHQ-9 Score PHQ-9: Total score 6 02/22/25 15:49 Thrive Assessment: Date of Thrive Assessment Date Thrive assessed 02/22/25 02/22/25 15:46 Currently or been in a relationship where the following occur: No concerns reported Const General: alert; No acute distress Eyes Conjunctivae: conjunctivae normal Resp Auscultation: clear to auscultation bilaterally Cardio Rate: regular rate Rhythm: regular rhythm GI Inspection: Yes normal to inspection Extrem General: Yes normal to inspection and No edema Coding Level of Care Code Est Pt Level 4 (69443) Complex EM visit Add On G2211 Diagnoses Primary hypertension I10 Hypertension type: primary hypertension Impaired fasting blood sugar R73.01 Morbidly obese E66.01 Stage 3a chronic kidney disease N18.31 Chronic kidney disease stage 3 subtype: stage 3a (GFR 45-59) JOYCELYN (obstructive sleep apnea) G47.33 Additional Codes SHON-7 Assessment Billing - SHON-7 Assessment Tool: SHON-7 Assessment 09802 ([id number]) PHQ-9 - 60428 - PHQ-9 Billing: Yes ([id number]) Assessment & Plan Assessment & Plan (1) Hypertension: Code(s): I10 - Essential (primary) hypertension Category: Medical Qualifiers: Hypertension type: primary hypertension Qualified Code(s): I10 - Essential (primary) hypertension Plan: Continue with blood pressure medication. Decrease salt intake and exercise on amlodipine 10 mg once a day carvedilol 25 mg twice a day (2) Impaired fasting blood sugar: Code(s): R73.01 - Impaired fasting glucose Category: Medical Plan: Decrease the amount of carbohydrate intake, pasta, bread, rice and potatoes are all sugar and that is aside from all the sweet stuff, remember that fruits are good but they are Sweet also. (3) Morbidly obese: Code(s): E66.01 - Morbid (severe) obesity due to excess calories Category: Medical Plan: Diet and exercise (4) Chronic kidney disease, stage 3: Code(s): N18.30 - Chronic kidney disease, stage 3 unspecified Category: Medical Qualifiers: Chronic kidney disease stage 3 subtype: stage 3a (GFR 45-59) Qualified Code(s): N18.31 - Chronic kidney disease, stage 3a Plan: well hydrated avoid NSAIDs (5) JOYCELYN (obstructive sleep apnea): Comment: He has definite obstructive sleep apnea, mild to moderately severe, with mild nocturnal hypoxemia. I explained to the patient that, best option is to start on CPAP therapy. HOWEVER HE WAS NOT WILLING TO START THE CPAP THERAPY . HE IS INSISTING ON GIVING HIM MORE TIME. HE PLANS TO LOSE WEIGHT, ADVISE THAT HE SHOULD CONTINUE TO LOSE WEIGHT. SLEEP HYGIENE EXPLAINED. HE WILL CALL US TO BE SEEN FOR FOLLOW-UP IF NEEDED. IN THE MEANTIME HE SHOULD CONTINUE TO FOLLOW-UP REGULARLY BY HIS PCP AND ALSO SHE HAS BY CARDIOLOGY SERVICE Code(s): G47.33 - Obstructive sleep apnea (adult) (pediatric) Category: Medical Plan: Discussed about treatment for sleep apnea. Plan History of Present Illness The patient is a 54-year-old male presenting for a follow-up visit. The patient has a history of morbid obesity, which has been a contributing factor to his other health conditions. He has been diagnosed with congestive heart failure and hypertension, both of which are being managed with medication. The patient also has chronic kidney disease and impaired glucose tolerance. His renal function was noted to be good in the latest blood work, with normal electrolytes and blood count. The patient has a history of obstructive sleep apnea but has been unable to tolerate CPAP therapy. He also has a history of PSA elevation, which is being monitored. In September 2021, the patient underwent a colonoscopy that revealed a tubular adenoma. His blood work in August 2024 showed a normal hemoglobin A1c and a high uric acid level of 7.6. Health Maintenance - Colonoscopy in September 2021 revealed tubular adenoma - Blood work in August 2024 showed normal hemoglobin A1c and high uric acid level Social History Review of Systems Physical Exam Results - Labs: Blood count normal, electrolytes normal, renal function good, sugar 112, hemoglobin A1c normal, uric acid high at 7.6, phosphorus low, magnesium normal, prostate number 3.8 - Tests: Colonoscopy in September 2021 with tubular adenoma Plan Patient was informed and verbally consented to the use of an ambient scribe for clinic note documentation during this visit. 1. Morbid Obesity The patient is advised to focus on diet and exercise to manage his weight. 2. Congestive Heart Failure The patient is on carvedilol 25 mg twice a day for heart failure management. 3. Hypertension The patient is prescribed amlodipine 10 mg once a day for blood pressure control. 4. Chronic Kidney Disease The patient is advised to keep well hydrated and avoid NSAIDs to protect kidney function. 5. Impaired Glucose Tolerance The patient is encouraged to manage glucose levels through diet and exercise. 6. Obstructive Sleep Apnea The patient discussed treatment options for sleep apnea but has difficulty tolerating CPAP therapy. 7. Psa Elevation The patient's PSA levels are being monitored, with the latest reading at 3.8. 8. Preventative Care: Colonoscopy With Tubular Adenoma The patient had a colonoscopy in September 2021 that revealed a tubular adenoma, and follow-up is recommended. Discussion Notes Patient Instructions - Focus on diet and exercise to manage weight and glucose levels. - Take amlodipine 10 mg once a day for blood pressure control. - Take carvedilol 25 mg twice a day for heart failure management. - Keep well hydrated and avoid NSAIDs to protect kidney function. Orders: Orders Complete Blood Count Auto Diff 3 Months E66.01 - Morbid (severe) obesity due to excess calories Hemoglobin A1c 3 Months E66.01 - Morbid (severe) obesity due to excess calories Free T4 (Free Thyroxine) 3 Months E66.01 - Morbid (severe) obesity due to exces s calories Thyroid Stimulating Hormone 3 Months E66.01 - Morbid (severe) obesity due to excess calories Prostate Specific Antigen Scr 3 Months E66.01 - Morbid (severe) obesity due to excess calories Comprehensive Met. Panel 3 Months E66.01 - Morbid (severe) obesity due to excess calories Lipid Panel 3 Months E66.01 - Morbid (severe) obesity due to excess calories, E78.00 - Pure hypercholesterolemia, unspecified Vitamin B12 and Folate 3 Months E66.01 - Morbid (severe) obesity due to excess calories Referrals Medical Weight Management Referral E66.01 - Morbid (severe) obesity due to excess calories
[2025-02-22 15:40] VITALS: BP 130/76; PULSE 67; O2SAT 97; BMI 41.3
--- OUTSIDE RECORDS SUMMARY | 2025-02-22 17:38 | XMS_ITS | Encounter Summary ---
Author Organization [facility] Address [address] [facility] [address] [place] [address] Phone Care Team Providers Care New Grad Rn Name Role Phone Heather Kebede MD Primary Care Provider [phone] Encounter Details Date Type Department Care Team (Late st Contact Info) Description 12/19/2020 Orders Only [facility] [address] [place] [address] Jd Cortés [...] Office Visit [facility] [address] [place] [address] Stevo Oakley MD [address] [facility] [address] [place] [address] 03/12/2025 Orders Only [facility] [address] [place] [id number] Stevo Oakley MD [address] [facility] [address] [place] [address] Stage 3a chronic kidney disease (HCC); Essential (primary) hypertension documented as of this encounter Visit Diagnoses Diagnosis Hypertensive chronic kidney disease, unspecified, with chronic kidney disease stage I through stage IV, or unspecified Stage 3a chronic kidney disease (HCC) Essential (primary) hypertension documented in this encounter Care Teams New Grad Rn Relationship Specialty Start Date End Date Heather Kebede MD [address] [place], [place] PCP - General Internal Medicine 06/16/20 documented as of this encounter
--- OUTSIDE RECORDS SUMMARY | 2025-02-22 17:38 | XMS_ITS | Patient Health Record ---
Author Organization [facility] Address [address] [place] [address] Care Team Providers Care Psychological Assistant Name Role Phone Heather Kebede MD Primary Care Provider Yonny Galvez Jr Unavailable Reason For Referral No Information Medications Medication SIG (Take, Route, Frequency, Duration) Notes Start Date End Date Status Carvedilol 25 MG TAKE 1 TABLET BY OJSE TH TWICE DAILY Oral for 30 Active [...] Problem Status W/U Status Risk Notes Problem [id number] Colon cancer screening (Z12.11) Active confirmed Problem [id number] superintendent container terminal current use of diuretic (Z79.899) Active confirmed Plan Of Treatment Future Test Test Name Order Date COLONOSCOPY 09/06/2021 Insurance Providers Payer Name Payer Address Payer Phone Subscriber Number Group Number Insured Name Patient Relationship to Insured Coverage Start Date Coverage End Date [employer] [address] [place] [address] [id number] MICHAEL LAW Self - patient is the insured Medical (General) History Medical History History ICD Code Nonischemic cardiomyopathy hypertension Biventricular congestive heart failure CKD STAGE III elevated BMI JOYCELYN Surgical History Surgery Date(Month/Year) tonsillectomy
--- OUTSIDE RECORDS SUMMARY | 2025-02-22 17:38 | XMS_ITS | Clinical Summary ---
Author Organization [facility] Address [address] [facility] [address] [place] [address] Phone Care Team Providers Care Wash House Worker Name Role Phone Heather Kebede MD Primary Care Provider [phone] Allergies Active Allergy Reactions Criticality Noted Date [...] Visit [facility] [address] [place] [address] Stevo Oakley MD [address] [address] 03/12/2025 Orders Only [facility] [address] [place] [address] Stevo Oakley MD [address] [address] Stage 3a chronic kidney disease (HCC); Essential (primary) hypertension Health Maintenance Due Date Last Done Comments Hepatitis B Vaccine (1 of 3 - 19+ 3-dose series) 03/28 Pneumococcal Vaccine: 50+ Years (1 of 2 - PCV) 988 Colorectal Cancer Screening: Annual FOBT 2018 Colorectal Cancer Screening: Colonoscopy 2018 Colorectal Cancer Screening: Sigmoidoscopy 2018 Influenza Vaccine (#1) 2025 [place] [id number] [facility] Commercial [address] [facility] [place] [address] [facility] Commercial Care Teams Wash House Worker Relationship Specialty Start Date End Date Heather Kebede MD [address] [place], [place] PCP - General Internal Medicine 06/16/20
== END 2025-02-22 16:02 | disposition home or self-care (01) ==
PROVIDERS: PCP Internal Medicine; Visit Provider Internal Medicine
DX: I10 Essential (primary) hypertension (principal); E66.01 Morbid (severe) obesity due to excess calories; N18.31 Chronic kidney disease, stage 3a; Z68.41 Body mass index [BMI] 40.0-44.9, adult; R73.01 Impaired fasting glucose; G47.33 Obstructive sleep apnea (adult) (pediatric)

== ENCOUNTER → 2025-02-22 15:21 | Outpatient (BNVA) | payer OTHER, SELFPAY | PROVIDERS: PCP Internal Medicine; Visit Provider Internal Medicine | DX: I13.0 Hypertensive heart and chronic kidney disease with heart failure and stage 1 through stage 4 chronic kidney disease, or unspecified chronic kidney disease (principal); N18.31 Chronic kidney disease, stage 3a; I50.9 Heart failure, unspecified; R33.9 Retention of urine, unspecified; R73.01 Impaired fasting glucose; E66.01 Morbid (severe) obesity due to excess calories; G47.33 Obstructive sleep apnea (adult) (pediatric); Z68.41 Body mass index [BMI] 40.0-44.9, adult | CPT/HCPCS: 96127 ==

== ENCOUNTER 2025-02-24 14:30 | Outpatient (AMB) | payer OTHER, SELFPAY ==
--- NOTE | 2025-02-24 15:11 | MHC.OFFVIS ---
Intake Visit Reasons: follow up Intake Note: Patient is present for F/U Urology Medication:TAMSULSOIN Antibiotic Allergy:NONE Blood Thinner:NONE Inside Sales Specialist Required: No Allergies seafood Allergy (Verified 02/24/25 15:46) Angioedema Medication List - Last Reconciled 02/24/25 by SALVADOR Albarran amlodipine 10 mg PO DAILY 90 days carvedilol 25 mg PO BID 90 days tamsulosin 0.4 mg PO BEDTIME 90 days triamcinolone acetonide 0.5% 1 appl topical BID HPI Comments Details: Antoni is a 54-year-old male patient of Dr. Kebede. He has a past medical history of obesity, obstructive sleep apnea, hypertension, and congestive heart failure. He presents to the office today for follow-up of his labile PSA in lower urinary tract symptoms. In discussion with the patient today reports to be doing and feeling well. He reports compliance with tamsulosin as prescribed. He feel this has been helpful in decreasing episodes of nocturia. Previous workup has included a retroperitoneal ultrasound 10/08 bilateral kidneys are normal in thickness and echotexture. There are no renal masses, renal calculi, or hydronephrosis noted bilaterally. The urinary bladder is unremarkable. Prostate measures approximately 23 mL with calcifications noted within the prostate per radiology report. PSAs are as follows 04/05 2.7, 03/07 2.5, 03/08 4.4, 06/07 3.7, 06/08 4.2 % free PSA 12%., 09/07 3.4, 02/07 3.8 We discussed labile PSA. We discussed potential causes of elevated PSA as well as further treatment options and risks and benefits of these treatment options. He denies any known family history of prostate cancer. We did discuss further workup to include prostate MRI. He has a longstanding history of obstructive sleep apnea with noncompliance and CPAP machine. We did discussed correlation of sleep apnea and nocturia. In office urinalysis results reviewed with the patient today. He denies urinary urgency, urinary frequency, incontinence, hematuria, dysuria, foul smelling urine, changes to urinary stream, flank pain, fever, and or chills. ANUPAM offered however deferred. He otherwise offers no other issues or concerns at this time. [facility] Medical History Obesity JOYCELYN (obstructive sleep apnea) Hypertension Congestive heart failure Surgical History History of tonsillectomy Family History Maternal Grandfather Lung cancer Paternal Grandfather Lung cancer Paternal Uncle Lung cancer Other Drug overdose Social History Housing: Apartment Alcohol intake: current Comment: 2x a year 1-2 glasses Patient Tobacco Use Status: Former Tobacco user Tobacco use type: Cigarette Years Smoked: quit 20 years old cigar smoking 01/2023 e-Cigarette/Vaping Use: Never Used Second Hand Smoke Exposure: Yes service: No Current occupational status: employed Current occupational exposures/hazards: No Cognitive needs: No Hearing needs: No Vision needs: Yes Review of Systems Const All systems reviewed & are unremarkable except as noted in HPI and below Eyes Reports no additional complaints ENT Reports no additional complaints Card Reports as per HPI Resp Reports as per HPI GI Reports no additional complaints Reports as per HPI Musc Reports no additional complaints Neuro Reports no additional complaints Psych Reports no additional complaints Endo Reports no additional complaints Jabier/Lymph Reports no additional complaints Aller/Immun Reports no additional complaints Physical Exam Const General: cooperative, healthy appearing, comfortable, no acute distress, well developed, alert and awake Nutritional Appearance: overweight Orientation/consciousness: patient oriented x3 Limitations: no limitations HEENT Head: Yes normal to inspection, Yes normocephalic and Yes atraumatic Ears: hearing grossly normal bilaterally Neck Neck: Yes normal visual inspection and Yes trachea midline Chest Chest palpation & inspection: normal inspection of the chest Resp Effort & Inspection: normal respiratory effort and able to speak in complete sentences Cardio Rate: regular rate GI Inspection: Yes normal to inspection General: Yes no CVA tenderness Back/Spine/Pelvis Back: no CVA tenderness Skin General skin exam: no rashes or lesions noted Neuro General: patient oriented x3 Extrem General: Yes normal to inspection Psych Appearance: grossly normal and well kempt Mental Status: mental status grossly normal Speech and movement: Normal speech and movement present and Clear speech present Affect: normal affect Attitude: cooperative Thought process: Normal thought process present Thought content: Normal thought content present Insight: Fair insight present (Psych) Judgement: Fair judgement present (Psych) Results AMB Urinalysis, Automated UA Leukoctes 0 Shanel/uL Last Edit by ROBERT Orozco on 02/24/25 16:45 UA Nitrite Negative Last Edit by [facility] on 02/24/[facility] 16:45 UA Urobilinogen 17 mg/dL Last Edit by Stephy Scott [facility] on 02/24/25 16:45 UA Protein 15 mg/dL Last Edit by Stephy Scott [facility] on 02/24/25 16:45 UA pH 6.5 Last Edit by Stephy Scott [facility] on 02/24/25 16:45 UA Blood 0 Home/uL Last Edit by Stephy Scott [facility] on 02/24/25 16:45 UA Specific Perdido 1.015 Last Edit by Stephy Scott [facility] on 02/24/25 16:45 UA Ketone Negative Last Edit by Stephy Scott [facility] on 02/24/25 16:45 UA Bilirubin 0 mg/dL Last Edit by Stephy Scott [facility] on 02/24/25 16:45 UA Glucose 0 mg/dL Last Edit by Stephy Scott [facility] on 02/24/25 16:45 Results Reviewed Results Reviewed: Laboratory Last Values Urine pH (Auto) 6.5 02/24/25 15:45 Specific Perdido (Auto) 1.015 02/24/25 15:45 Urine Protein (Auto) 15 mg/dL 02/24/25 15:45 Glucose (UA)(Auto) 0 mg/dL 02/24/25 15:45 Urine Ketones (Auto) Negative 02/24/25 15:45 Urine Blood (Auto) 0 Home/uL 02/24/25 15:45 Urine Nitrite (Auto) Negative 02/24/25 15:45 Urine Bilirubin (Auto) 0 mg/dL 02/24/25 15:45 Urine Urobilinogen (Auto) 17 mg/dL 02/24/25 15:45 Leukocyte Esterase (Auto) 0 Shanel/uL 02/24/25 15:45 Assessment & Plan Assessment & Plan (1) PSA elevation: Code(s): R97.20 - Elevated prostate specific antigen [PSA] Category: Medical Plan In office urinalysis results reviewed with the patient today; as noted above. Recent PSA results reviewed with the patient today; as noted above. Continue Flomax as discussed and prescribed; refill provided We discussed importance of compliance in CPAP for improvement in nocturia as well as overall health and well-being. We discussed potential causes of elevated/labile PSA We discussed further treatment options and risks and benefits of the treatment options. Will continue with surveillance monitoring. Will obtain PSA in 4 months. Follow-up in 4 months with PSA and PVR; or sooner with any issues, concerns, and or questions. Orders: Orders PSA,Total (Free>4and<10) 3 Months R97.20 - Elevated prostate specific antigen [PSA] AMB Urinalysis Automated Today Z13.9 - Encounter for screening, unspecified Medications: Changed From tamsulosin 0.4 mg PO BEDTIME 30 caps 3RF 30 weeks R39.9 - Unspecified symptoms and signs involving the genitourinary system To tamsulosin 0.4 mg PO BEDTIME 90 caps 3RF 90 days R39.9 - Unspecified symptoms and signs involving the genitourinary system Patient Instructions: The patient had an opportunity to ask questions regarding the treatment plan. All questions were answered. Physical exam, labs, and imaging were discussed and reviewed in detail. As well as risks, benefits, and discussion of treatment choices. No major barriers to understanding were identified. The patient expressed understanding and agreement with the above treatment plan. The patient was made aware they should contact our office by phone for worsening of their current condition, the appearance of new symptoms, or with any questions or concerns. Compliance is encouraged with any medications and follow up testing that is ordered. It is a privilege to be allowed the opportunity to participate in? your urological care.? Again, if you have any questions or concerns If you have any questions or concerns please do not hesitate to contact me. The office is [phone]. This note is constructed using voice recognition software. While every effort has been made to ensure accuracy municipal engineer errors may have been included. Yours sincerely, SALVADOR Albarran Coding Level of Care Code Est Pt Level 3 (81732) Diagnoses PSA elevation R97.20
--- OUTSIDE RECORDS SUMMARY | 2025-02-24 18:13 | XMS_ITS | Encounter Summary ---
Author Organization [facility] Address [address] [facility] [address] [place] [address] Phone Care Team Providers Care Track Sweeper Name Role Phone Heather Kebede MD Primary Care Provider [phone] Encounter Details Date Type Department Care Team (Late st Contact Info) Description 12/19/2020 Orders Only [facility] [address] [place] [address] Jd Cortés [...] Office Visit [facility] [address] [place] [address] tSevo Oakley MD [address] [facility] [address] [place] [address] 03/12/2025 Orders Only [facility] [address] [place] [phone] Stevo Oakley MD [address] [facility] [address] [place] [address] Stage 3a chronic kidney disease (HCC); Essential (primary) hypertension documented as of this encounter Visit Diagnoses Diagnosis Hypertensive chronic kidney disease, unspecified, with chronic kidney disease stage I through stage IV, or unspecified Stage 3a chronic kidney disease (HCC) Essential (primary) hypertension documented in this encounter Care Teams Track Sweeper Relationship Specialty Start Date End Date Heather Kebede MD [address] [place], [place] PCP - General Internal Medicine 06/16/20 documented as of this encounter
--- OUTSIDE RECORDS SUMMARY | 2025-02-24 18:13 | XMS_ITS | Clinical Summary ---
Author Organization [facility] Address [address] [facility] [address] [place] [address] Phone Care Team Providers Care Dredge Boat Engineer Name Role Phone Heather Kebede MD Primary Care Provider [phone] Allergies Active Allergy Reactions Criticality Noted Date [...] Visit [facility] [address] [place] [address] Stevo Oakley MD [address] [address] 03/12/2025 Orders Only [facility] [address] [place] [address] Stevo Oakley MD [address] [address] Stage 3a chronic kidney disease (HCC); Essential (primary) hypertension Health Maintenance Due Date Last Done Comments Hepatitis B Vaccine (1 of 3 - 19+ 3-dose series) 03/28 Pneumococcal Vaccine: 50+ Years (1 of 2 - PCV) 988 Colorectal Cancer Screening: Annual FOBT 2018 Colorectal Cancer Screening: Colonoscopy 2018 Colorectal Cancer Screening: Sigmoidoscopy 2018 Influenza Vaccine (#1) 2025 [place] [id number] [facility] Commercial [address] [place] [id number] [facility] Commercial Care Teams Dredge Boat Engineer Relationship Specialty Start Date End Date Heather Kebede MD [address] [place], [place] PCP - General Internal Medicine 06/16/20
--- OUTSIDE RECORDS SUMMARY | 2025-02-24 18:13 | XMS_ITS | Patient Health Record ---
Author Organization [facility] Address [address] [place] [address] Care Team Providers Care Puttying And Calking Supervisor Name Role Phone Heather Kebede MD Primary [...] Problem Status W/U Status Risk Notes Problem [id number] Colon cancer screening (Z12.11) Active confirmed Problem [id number] [facility] current use of diuretic (Z79.899) Active confirmed Plan Of Treatment Future Test Test Name Order Date COLONOSCOPY 09/06/2021 Insurance Providers Payer Name Payer Address Payer Phone Subscriber Number Group Number Insured Name Patient Relationship to Insured Coverage Start Date Coverage End Date [employer] [address] [place] [address] [id number] MICHAEL LAW Self - patient is the insured Medical (General) History Medical History History ICD Code Nonischemic cardiomyopathy hypertension Biventricular congestive heart failure CKD STAGE III elevated BMI JOYCELYN Surgical History Surgery Date(Month/Year) tonsillectomy
== END 2025-02-24 15:47 | disposition home or self-care (01) ==
LOC: HO.HUSH 14:30
PROVIDERS: PCP Internal Medicine; Visit Provider Nurse Practitioner Family
DX: R97.20 Elevated prostate specific antigen [PSA] (principal); Z13.9 Encounter for screening, unspecified
CPT/HCPCS: 99213

== ENCOUNTER → 2025-02-24 14:30 | Outpatient (BNVA) | payer OTHER, SELFPAY | PROVIDERS: PCP Internal Medicine; Visit Provider Nurse Practitioner Family | DX: R97.20 Elevated prostate specific antigen [PSA] (principal) | CPT/HCPCS: 81003 ==

== ENCOUNTER 2025-03-10 14:22 | Outpatient (REF) | payer OTHER, SELFPAY ==
--- OUTSIDE RECORDS SUMMARY | 2025-03-10 14:15 | XMS_ITS | Encounter Summary ---
Author Organization [facility] Address [address] [address] Phone Care Team Providers Care Commercial Lines Account Assistant Name Role Phone Heather Kebede MD Primary Care Provider [phone] Reason for Referral * Imaging (Routine) - Pending Review Specialty Diagnoses / Procedures Referred By Yarely london Referred To Contact Diagnoses Essential (primary) hypertension Stage 3a chronic kidney disease (HCC) Procedures Ultrasound Retroperitoneum Kidney Vessels Stevo Oakley MD [address] [address] Phone: tel: fax: Referral ID Status Reason Start Date Expiration Date V isits Requested Visits Authorized [id number] Pending Review 03/10/2025 03/10/2026 1 1 Reason for Visit * Reason Comments Stage 3a chronic kidney disease Encounter Details Date Type Department Care Team (Late st Contact Info) Description 03/10/2025 2:15 PM EDT Office Visit [facility] [address] [place] [address] Stevo Oakley MD [address] [address] Essential (primary) hypertension (Primary Dx); Stage 3a chronic kidney disease (HCC) Social [...] Sign Reading Time Taken Comments Blood Pressure 130/70 03/10/2025 1:50 PM EDT Pulse 61 03/10/2025 1:50 PM EDT Temperature - - Respiratory Rate - - Oxygen Saturation 97% 03/10/2025 1:50 PM EDT Inhaled Oxygen Concentration - - Weight 107 kg (234 lb 12.8 oz) 03/10/2025 1:50 P M EDT Height - - Body Mass Index 41.59 04/20/2021 2:02 PM EDT documented in this encounter Progress Notes * Stevo Oakley MD - 03/10/2025 2:15 PM EDT Images from the original note were not included. Patient Name: Antoni Reina, Male Date of : 1970, 54 y.o. Date: 03/10/2025 History of Present Illness Antoni Reina is a 54 y.o. 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%, nonischemic cardiomyopathy in 2020- this was associated with YARED - now ef back to normal Antoni seems to have has HTN for a long time in a setting of Obesity and JOYCELYN No dyspnea at rest or exertion H/o nasal allergies and totally blocked nostrils Today - Past leg edema, now improved - Moderately severe sleep apnea diagnosed by sleep study in September 2020, AHI 17.5, nocturnal hypoxemia noted, lowest O2 saturation 77%, declined CPAP therapy - No diabetes, as reported - Recent efforts to lose weight since April 05, 2025, including eating smaller portions and starting a weight loss regimen - Reports feeling better with dietary changes - Reports previous numbness in legs, improved with dietary changes The following portions of the patient's chart [...] mouth twice a day 60 tablet 2 lisinopril 20 MG tablet Take 2 tablets (40 mg total) by mouth 1 (one) time each day 90 tablet 3 triamcinolone (KENALOG) 0.5 % cream 2 (two) times a day APPLY TOPICALLY TO THE AFFECTED AREA TWICE DAILY No current facility-administered medications for this visit. Allergy List Allergies Allergen Reactions Shellfish Allergy Physical Exam BP 130/70 (BP Location: Right upper arm, Patient Position: Sitting, BP Cuff Size: Adult) Pulse 61 Wt 234 lb 12.8 oz (107 kg) SpO2 97% BMI 41.59 kg/m?? Vitals reviewed. Constitutional: He is oriented [...] Chemistry Lab Units 03/18/24 0000 09/22/23 0000 SODIUM 140 140 POTASSIUM 4.5 3.6 CO2 mmol/L 28 31 BUN mg/dL 17 16 CREATININE mg/dL 1.26 1.37* CHLORIDE 106.0 102.0 ALBUMIN g/dL -- 4.3 EGFRNAFR 60 -- Bone Mineral Lab Units 03/18/24 0000 09/22/23 0000 CALCIUM mg/dL 9.0 8.7 PHOSPHORUS 3.0 2.6 Assessment & Plan 1. Essential (primary) hypertension 2. Stage 3a chronic kidney disease (HCC) CKD 3a. BL cr of ~1.3- 1.1 without significant proteinuria in a setting on long standing HTN ,Obesity and Heart failure Renal function is stable HTN- BP Well controlled- prior visit - stopped torsemide as his EF is wnl , stopped imdur as no h/ocad and cath in 2020 wnl , stopped hydralazine Cont amlodipne 10mg, coreg 25mg bid and Lisinopril dose increased from 20mg to 40mg daily Sleep hygiene is poor. He works night shifts and has irregular sleeping habits- refusing to consider CPAP Discussed shankar loss- Willing to discuss wt loss options in next visit with dr. Kebede gmph-vpf-[id number] vitamin D supplement Secondary HTN work up ordered Orders Placed This Encounter Ultrasound Retroperitoneum Kidney Vessels Basic Metabolic Panel Aldosterone Renin Activity Metanephrines,Frac., Pl. Free Return in about 6 months (around 09/07/2025). Stevo Oakley MD documented in this encounter Plan of Treatment Upcoming Encounters Date Type Department Care Team (Late st Contact Info) Description 03/12/2025 Orders Only [facility] [address] [place] [address] Stevo Oakley MD [address] [address] Stage 3a chronic kidney disease (HCC); Essential (primary) hypertension 09/08/2025 1:30 PM EDT Office Visit [facility] [address] [place] [address] Stevo Oakley MD [address] [address] Scheduled Orders Name Type Priority Associated Diagnoses Orde r Schedule Basic Metabolic Panel Lab Routine Essential (primary) hypertension Stage 3a chronic kidney disease (HCC) Expected: 03/10/2025, Expires: 04/09/2026 Aldosterone Lab Routine Essential (primary) hypertension Stage 3a chronic kidney disease (HCC) Expected: 03/10/2025, Expires: 04/09/2026 Renin Activity Lab Routine Essential (primary) hypertension Stage 3a chronic kidney disease (HCC) Expected: 03/10/2025 (Approximate), Expires: 04/09/2026 Metanephrines,Frac., Pl. Free Lab Routine Essential (primary) hypertension Stage 3a chronic kidney disease (HCC) Expected: 03/10/2025, Expires: 04/09/2026 Ultrasound Retroperitoneum Kidney Vessels Imaging Routine Essential (primary) hypertension Stage 3a chronic kidney disease (HCC) Expected: 03/10/2025, Expires: 03/10/2026 documented as of this encounter Visit Diagnoses Diagnosis Essential (primary) hypertension- Primary Stage 3a chronic kidney disease (HCC) Stage 3a chronic kidney disease (HCC) Essential (primary) hypertension documented in this encounter Care Teams Commercial Lines Account Assistant Relationship Specialty Start Date End Date Heather Kebede MD [address] [place], [place] PCP - General Internal Medicine 06/16/20 documented as of this encounter
[2025-03-10 15:30] LABS: Anion Gap 10 (12-20); Blood Urea Nitrogen 18 mg/dL (9-16); Calcium 8.7 mg/dL (8.4-10.2); Carbon Dioxide 29 mmol/L (22-29); Chloride 105 mmol/L (96-108); Estimated Glomerular Filt Rate 58; Potassium 4.1 mmol/L (3.3-5.1); Sodium 140 mmol/L (135-145)
--- OUTSIDE RECORDS SUMMARY | 2025-03-10 18:46 | XMS_ITS | Patient Health Record ---
Author Organization [facility] Address [address] [place] [address] Care Team Providers Care Director Of Safety And Security Name Role Phone Heather Kebede MD Primary [...] Problem Status W/U Status Risk Notes Problem [id number] Colon cancer screening (Z12.11) Active confirmed Problem [id number] shelter current use of diuretic (Z79.899) Active confirmed Plan Of Treatment Future Test Test Name Order Date COLONOSCOPY 09/06/2021 Insurance Providers Payer Name Payer Address Payer Phone Subscriber Number Group Number Insured Name Patient Relationship to Insured Coverage Start Date Coverage End Date [employer] [address] [place] [address] [id number] MICHAEL LAW Self - patient is the insured Medical (General) History Medical History History ICD Code Nonischemic cardiomyopathy hypertension Biventricular congestive heart failure CKD STAGE III elevated BMI JOYCELYN Surgical History Surgery Date(Month/Year) tonsillectomy
--- OUTSIDE RECORDS SUMMARY | 2025-03-10 18:46 | XMS_ITS | Clinical Summary ---
Author Organization [facility] [address] [place] [address] Phone Care Team Providers Care Broom Machine Operator Name Role Phone Heather Kebede MD Primary Care Provider [phone] Allergies Active Allergy Reactions Criticality Noted Date Comments Shellfish Allergy 08/20/2021 Medications carvedilol (COREG) 25 MG tablet Take 1 tablet (25 mg total) by mouth twice a day 60 tablet 2 01/19/20 21 Active amLODIPine (NORVASC) 10 MG tablet Take 1 tablet by mouth 1 (one) time each day 03/20/20 15 Active triamcinolone (KENALOG) 0.5 % cream 2 (two) times a day APPLY TOPICALLY TO THE AFFECTED AREA TWICE DAILY 06/19/19 23 Active lisinopril 20 MG tablet Take 2 tablets (40 mg total) by mouth 1 (one) time each day 90 tablet 3 03/10/20 25 026 Active hydrALAZINE 100 MG tablet Take 100 mg by mouth 3 times a day 03/31/20 21 025 Discontinued lisinopril 20 MG tablet Take 1 tablet by mouth 1 (one) time each day 03/20/20 15 025 Discontinued Active Problems Problem Noted Date Diagnosed Date Long-term current use of drug therapy 01/22/2023 01/22/2023 Screening for malignant neoplasm of colon 202201/22/2023 Essential (primary) hypertension 04/19/2021 Encounters Date Type Department Care Team Description 03/10/2025 2:15 PM EDT Office Visit [facility] [address] [place] [address] Stevo Oakley MD Essential (primary) hypertension (Primary Dx); Stage 3a chronic kidney disease (HCC) from Last 3 Months Family History Medical [...] oz) 03/10/2025 1:50 P M EDT Height 160 cm (5' 3 ) 04/20/2021 2:02 PM EDT Body Mass Index 41.59 04/20/2021 2:02 PM EDT Plan of Treatment Upcoming Encounters Date Type Department Care Team (Late st Contact Info) Description 03/12/2025 Orders Only [facility] [address] [place] [phone] Stevo Oakley MD [address] [address] Stage 3a chronic kidney disease (HCC); Essential (primary) hypertension 09/08/2025 1:30 PM EDT Office [facility] [address] [place] [phone] Stevo Oakley MD [address] [address] Health Maintenance Due Date Last Done Comments Hepatitis B Vaccine (1 of 3 - 19+ 3-dose series) 03/28 Pneumococcal Vaccine: 50+ Years (1 of 2 - PCV) 988 Colorectal Cancer Screening: Annual FOBT 2018 Colorectal Cancer Screening: Colonoscopy 2018 Colorectal Cancer Screening: Sigmoidoscopy 2018 Influenza Vaccine (#1) 2025 Procedures Procedure Name Priority Date/Time Associated Diagnosis Comments BASIC METABOLIC PANEL Routine 03/10/2025 2:38 PM EDT Stage 3a chronic kidney disease (HCC) Essential (primary) hypertension from Last 3 Months Results * (ABNORMAL) Basic Metabolic Panel (03/10/2025 2:38 PM EDT) Sodium 140 135 - 145 mmol/L See order comments Potassium 4.1 3.3 - 5.1 mmol/L See order comments Chloride 105 96 - 108 mmol/L See order comments Bicarbonate (CO2) 29 22 - 29 mmol/L See order comments Anion Gap 10(L) 12 - 20 See order comments BUN 18(H) 9 - 16 mg/dL See order comments Creatinine Serum 1.28 0.5 - 1.4 mg/dL See order comments eGFR (Calc) 58 See orde r comments Comment: Chronic Kidney Disease: Estimated GFR < 60 mL/min/1.73m2 Severe Kidney Disease: Estimated GFR < 15 mL/min/1.73m2 Glucose 105 60 - 115 mg/dL See order comments Calcium 8.7 8.4 - 10.2 mg/dL See order comments Blood specimen (specimen) Venous blood / Unknown 03/10/2025 2:38 PM EDT 03/10/2025 2:38 PM EDT us Stevo Oakley MD LAB BLOOD ORDERABLES Final Result [place] See order comments [place] [address] from Last 3 Months Insurance [employer] [place] [id number] [facility] [place] [id number] [facility] Commercial Care Teams Broom Machine Operator Relationship Specialty Start Date End Date Heather Kebede MD [address] [place], [place] PCP - General Internal Medicine 06/16/20
--- OUTSIDE RECORDS SUMMARY | 2025-03-10 18:46 | XMS_ITS | Encounter Summary ---
Author Organization [facility] Address [address] [facility] [address] [place] [address] Phone Care Team Providers Care It Support Specialist Name Role Phone Heather Kebede MD Primary Care Provider [phone] Encounter Details Date Type Department Care Team (Late Contact Info) Description 12/19/2020 Orders Only [facility] [address] [place] [phone] [...] Department Care Team (Late Contact Info) Description 03/12/2025 Orders Only [facility] [address] [place] [address] Stevo Oakley MD [address] [facility] [address] [place] [id number] Stage 3a chronic kidney disease (HCC); Essential (primary) hypertension 09/08/2025 1:30 PM EDT Office Visit [facility] [address] [place] [address] Stevo Oakley MD [address] [phone] documented as of this encounter Visit Diagnoses Diagnosis Hypertensive chronic kidney disease, unspecified, with chronic kidney disease stage I through stage IV, or unspecified Stage 3a chronic kidney disease (HCC) Essential (primary) hypertension documented in this encounter Care Teams It Support Specialist Relationship Specialty Start Date End Date Heather Kebede MD [address] [place], [place] PCP - General Internal Medicine 06/16/20 documented as of this encounter
[2025-03-16 15:23] LABS: Metanephrine, Free 56 pg/mL (<=57); Normetanephrines, Free 194 pg/mL (<=148); Total Metanephrine, Free 250 pg/mL (<=205)
== END 2025-03-10 14:23 | disposition home or self-care (01) ==
LOC: HO.LAB 14:22
PROVIDERS: PCP Internal Medicine; Visit Provider Internal Medicine
DX: I12.9 Hypertensive chronic kidney disease with stage 1 through stage 4 chronic kidney disease, or unspecified chronic kidney disease (principal); N18.31 Chronic kidney disease, stage 3a
CPT/HCPCS: 36415; 80048; 82088; 83835; 84244